=== PATIENT | male | born 1955 | race Caucasian/White ===

== ENCOUNTER → 2017-11-12 07:46 | Outpatient (CLI) | payer BC, SELFPAY ==
--- NOTE | 2017-11-12 08:00 | CT_ITS ---
CT lung screening EXAM: CT LUNG LOW DOSE WO CONTRAST COMPARISON: None HISTORY: -Year-old male with greater than 30 pack-year smoking history asymptomatic ITS.REASON: CURRENT TOBACCO USE ORDERING PHYSICIAN: Fredy Delaney MD PATIENT AGE: 62 years TECHNIQUE: The exam was performed on a GE Light Speed [address] scanner using 2.90 mGy CTDI. A low dose helical CT CHEST was performed on a multi-detector scanner. All CT scans at the facility use one or more dose reduction, viz: automated exposure control; ma/kV adjustment per patient size (including targeted exams where dose is matched to indication; i.e. head); or iterative reconstruction technique. The LDCT was performed in a facility that meets the criteria for the screening program. Data regarding this exam was submitted to ACR which is an approved registry. The order for this exam indicates that it came as a result of a lung cancer screening counseling shard decision-making visit that included all the elements required of such a visit including smoking cessation. The radiologist interpreting this exam meets the CMS criteria for the LDCT lung cancer screening program. The exam is reported using the Lung-RADS classification scale and reported to the ACR registry. NOTE: This study was performed for the specific purposes of lung cancer screening and is not an alternative to diagnostic chest CT. RADIATION DOSE: CTDI vol(CT dose Index-volume) = 2.90mG DLP (Dose Length Product) = 111.77 mGcm FINDINGS: Centrilobular emphysema. Bronchial thickening and hyperinflation consistent with obstructive chronic bronchitis 6 mm noncalcified subpleural nodular opacity left upper lobe anterolaterally. 3 mm noncalcified nodule left upper lobe anteriorly Mild prominence of the ascending aorta 4.4 cm. Coronary artery calcifications. Degenerative disc disease thoracic spine. IMPRESSION: 1. Lung RADS Category: 3, probably benign 2. Other findings: Centrilobular emphysema with obstructive chronic bronchitis Coronary artery calcifications suggesting coronary artery disease. Mild dilatation of the ascending aorta 4.4 cm RECOMMENDATIONS: [address] follow-up
== END ==
PROVIDERS: Family Provider Family Medicine; PCP Family Medicine; Visit Provider Family Medicine
DX: Z87.891 Personal history of nicotine dependence (principal); Z12.2 Encounter for screening for malignant neoplasm of respiratory organs; F17.200 Nicotine dependence, unspecified, uncomplicated

== ENCOUNTER → 2017-12-10 08:54 | Outpatient (CLI) | payer BC, SELFPAY ==
--- NOTE | 2017-12-10 08:58 | US_ITS ---
US aorta Ordering Physician: Fredy Delaney MD Patient Age: 62 years: Male HISTORY: ITS.REASON: THORACIC AORTIC ANEURYSMnoted on recent screening CT chest TECHNIQUE: Ultrasound abdominal aorta COMPARISON :No previous abdominal studies. CT chest includes uppermost abdomen from November 2017 FINDINGS Aorta normal caliber and tapers as it continues distal.. No aneurysm evident.. Aorta measures just over 2 cm diameter superiorly in the abdomen superiorly, but then does taper slightly measuring just less than 2 cm maximally at the lower abdominal aorta and just above aortic bifurcation. The common iliac vessels appear satisfactory. One measuring 6.8 mm another slightly less. Minimal atheromatous plaque aorta noted calcified plaque posteriorly at the upper abdomen aorta noted IMPRESSION 1. No abdominal aortic aneurysm evident. Aorta satisfactory caliber & tapers as it continues distally to the bifurcation.. 2. Minimal atherosclerotic plaque observed
== END ==
PROVIDERS: Family Provider Family Medicine; PCP Family Medicine; Visit Provider Family Medicine
DX: I71.2 Thoracic aortic aneurysm, without rupture (principal)
CPT/HCPCS: 76770

== ENCOUNTER → 2018-06-09 12:22 | Outpatient (CLI) | payer BC, SELFPAY ==
[2018-06-09 12:42] LABS: Blood Urea Nitrogen 12 mg/dL (7-18); Creatinine,Serum 0.73 mg/dL (0.70-1.30); Estimated Glomerular Filt Rate 109 ml/min (>60); GFR (African American) 132 ML/MIN (>60)
--- NOTE | 2018-06-09 12:56 | CT_ITS ---
CT chest w con HISTORY: : Over 40 pack-year history ITS.REASON: H/O NICOTINE DEPENDENCE,LUNG NODULES follow-up ITS.REASON: PULMONARY NODULES ORDERING PHYSICIAN: Cassandra Ye PATIENT AGE: 63 years COMPARISON: CT chest 11/12/2017 reveal 2 small nodules left lung. Technique: Axial images obtained. Sagittal and coronal reformatted images are also generated and reviewed. All CT scans at the facility use one or more dose reduction, viz: automated exposure control, ma/kV adjustment per patient size (including targeted exams where dose is matched to indication, i.e. head), or iterative reconstruction technique. . ========= FINDINGS:======= LUNG SANTIAGO Centrilobular emphysema. Bronchial thickening and hyperinflation consistent with obstructive chronic bronchitis Follow-up LEFT LUNG NODULES: 1.... The previously seen 6 mm noncalcified pleural nodular opacity superior left upper lobe anterolaterally is not changed significantly. A measures 5.5 mm at its base today's study. It can be followed. 2.... The previously noted any less than 3 mm noncalcified subpleural nodule anterior left midlung is no longer evident... 3..... However just superior and slightly lateral to the previous nodule is a very similar less than 3 mm subpleural nodular density on today's (axial image 35, sagittal 80.) This nodule Faintly seen &. Most likely benign feature. Follow-up adequate. 4.... Linear area of scarring at extends to the pleura posteriorly at the superior segment left lower lobe, axial image 32. Slightly more evident but appears to be scarring. Concern. MEDIASTINUM/LIDIA No hilar no mediastinal adenopathy. Heart normal size. Normal pulmonary arteries. Aorta satisfactory Only noting Mild slight prominence of ascending aorta 4.4 cm.-stable. . minimal Coronary artery calcifications stable. Upper Abdomen. Low-density adrenal nodule again noted. Measures 3 cm and appears similar to previous noncontrast study. It measures 10 density and compatible with a nonfunctioning adenoma on the previous exam and again today.. Mild Degenerative disc disease thoracic spine. IMPRESSION:...... 1. Lung RADS Category: 2. Small stable nodules at left lung by far most likely benign. Follow-up LDCTscreening chest CT in 12 months recommended & adequate 2. Other findings: .Centrilobular emphysema appears stable. Likely modest bronchitis. .Coronary artery calcifications suggesting coronary artery disease. .Modest dilatation of the ascending aorta 4.4 cm . Stable 3 cm low-density benign left adenoma again observed
== END ==
PROVIDERS: Visit Provider Nurse Practitioner Family
DX: R91.8 Other nonspecific abnormal finding of lung field (principal)
CPT/HCPCS: 36415; 71260; 82565; 84520; Q9967

== ENCOUNTER → 2019-01-30 14:43 | Outpatient (CLI) | payer BC, SELFPAY ==
--- NOTE | 2019-01-30 14:46 | CT_ITS ---
CT lung screening EXAM: CT LUNG LOW DOSE WO CONTRAST HISTORY: 30+ pack year smoking history, asymptomatic for lung cancer ITS.REASON: CURRENT TOBACCO USE ORDERING PHYSICIAN: Cassandra Ye APRN PATIENT AGE: 64 years COMPARISON: None TECHNIQUE: The exam was performed on a GE Light Speed [address] scanner using 2.90 mGy CTDI. A low dose helical CT CHEST was performed on a multi-detector scanner. All CT scans at the facility use one or more dose reduction, viz: automated exposure control, ma/kV adjustment per patient size (including targeted exams where dose is matched to indication, i.e. head), or iterative reconstruction technique. The LDCT was performed in a facility that meets the criteria for the screening program. Data regarding this exam was submitted to ACR which is an approved registry. The order for this exam indicates that it came as a result of a lung cancer screening counseling shard decision-making visit that included all the elements required of such a visit including smoking cessation. The radiologist interpreting this exam meets the CMS criteria for the LDCT lung cancer screening program. The exam is reported using the Lung-RADS classification scale and reported to the ACR registry. NOTE: This study was performed for the specific purposes of lung cancer screening and is not an alternative to diagnostic chest CT. RADIATION DOSE: CTDI vol(CT dose Index-volume) = 2.90mG DLP (Dose Length Product) = 111.77 mGcm FINDINGS: Changes of COPD with hyperinflation and bronchial thickening with scattered areas of scarring. There is a new spiculated semisolid appearing nodular opacity in the right upper lobe which measures 2 cm transverse and 1.2 cm AP. The nodule has a somewhat flattened appearance on the coronal reformatted images but does have spiculated margins. Cephalad to caudad dimension is only 6 mm. This was not present on the previous exam. There is a 6 mm subpleural nodular opacity in the left upper lobe unchanged. Coronary artery calcifications are present. There is a 3 cm soft tissue density in the left upper quadrant which appears to emanate from the lateral exam of the left adrenal gland and may be due to an adenoma. Unchanged. IMPRESSION: 1. Lung RADS Category: 4B, suspicious. Due to the fact this has developed since the previous exam this could be either infectious/inflammatory or neoplastic. Would therefore recommend a dedicated chest CT without and with contrast and 1 month 2. Other findings: COPD, coronary artery disease. Left adrenal nodule which may be due to an adenoma RECOMMENDATIONS: [address] follow-up without and with contrast
== END ==
PROVIDERS: PCP Family Medicine; Visit Provider Nurse Practitioner Family
DX: Z12.2 Encounter for screening for malignant neoplasm of respiratory organs (principal); Z87.891 Personal history of nicotine dependence; R91.8 Other nonspecific abnormal finding of lung field

== ENCOUNTER → 2019-02-10 08:11 | Outpatient (CLI) | payer BC, SELFPAY ==
[2019-02-10 08:37] LABS: Blood Urea Nitrogen 14 mg/dL (7-18); Creatinine,Serum 0.82 mg/dL (0.70-1.30); Estimated Glomerular Filt Rate 95 ml/min (>60); GFR (African American) 115 ML/MIN (>60)
--- NOTE | 2019-02-10 08:43 | CT_ITS ---
CT chest wo/w con HISTORY: Smoker, abnormal chest CT follow-up, follow-up nodule ITS.REASON: TOBACCO USE ,ABN CT CHEST,PULMONARY NODULE ORDERING PHYSICIAN: Fredy Delaney MD PATIENT AGE: 64 years COMPARISON: 01/30/2019 Technique: Contrast Used:75ml Optiray 350 Axial images were obtained without and with contrast.. Sagittal, and coronal reformatted images are also generated and reviewed. All CT scans at the facility use one or more dose reduction, viz: automated exposure control, ma/kV adjustment per patient size (including targeted exams where dose is matched to indication, i.e. head), or iterative reconstruction technique. FINDINGS: No mediastinal or hilar mass. Coronary artery calcifications are present. There is mild ectasia of ascending thoracic aorta 4.2 cm. No evidence of dissection. Unremarkable. Pulmonary artery. No adenopathy. There are few scattered small axillary lymph nodes. There is an irregular spiculated opacity once again noted in the right upper lobe. This is not significantly changed measuring approximately 2 cm transverse and 1.2 cm AP. No obvious enhancement. Changes of COPD. No new nodules evident. There is mild bronchial thickening. No effusions. Subpleural nodular opacity in the left upper lobe is unchanged. No acute bony anomalies. Upper abdominal images demonstrates a left adrenal mass that 3 cm consistent with density measurements consistent with an adenoma not significant change. IMPRESSION: 1. Overall no change in the spiculated lesion in the right upper lobe suspicious for neoplasm. Inflammatory or infectious focus is also a consideration. No interval change compared to 01/30/2019. Consider PET CT for further evaluation.
== END ==
PROVIDERS: PCP Family Medicine; Visit Provider Family Medicine
DX: R93.89 Abnormal findings on diagnostic imaging of other specified body structures (principal); R91.1 Solitary pulmonary nodule; F17.200 Nicotine dependence, unspecified, uncomplicated
CPT/HCPCS: 36415; 71270; 82565; 84520; Q9967

== ENCOUNTER → 2020-07-25 09:36 | Outpatient (CLI) | payer BC, SELFPAY ==
[2020-07-25 11:03] LABS: Coronavirus 19 IgG Antibody Negative (Negative); Coronavirus 19 IgM Antibody Negative (Negative)
== END ==
PROVIDERS: Visit Provider Internal Medicine Gastroenterology
DX: Z01.818 Encounter for other preprocedural examination (principal); Z12.11 Encounter for screening for malignant neoplasm of colon; Z86.010 Personal history of colon polyps; Z20.822 Contact with and (suspected) exposure to COVID-19
CPT/HCPCS: 36415; 86328

== ENCOUNTER 2020-07-26 10:25 | Day surgery (SDC) | payer BC, SELFPAY ==
[2020-07-18 10:26] VITALS: BMI 41.9
[2020-07-26 10:41] VITALS: BP 185/87; PULSE 97; RESP 22; TEMP 36.2; O2SAT 92
[2020-07-26 12:04] VITALS: O2SAT 98
[2020-07-26 12:29] VITALS: BP 99/44; PULSE 75; RESP 18; TEMP 36.2; O2SAT 93
--- NOTE | 2020-07-26 12:29 | P.PCN_ITS ---
[facility] Procedure Note Procedure Note:: Colonoscopy Procedure Report: Colonoscopy with cold snare polypectomy Endoscopist: Mike Quigley II, MD Referring physician: BRI Parks Date of Procedure: July 26, 2020 Equipment: Olympus 180 variable stiffness pediatric colonoscope Sedation: MAC sedation Indication: Mr. Garrett is a 65-year-old gentleman who is here for follow-up screening/surveillance colonoscopy secondary to a personal history of colon polyps. His last colonoscopy 5 years ago revealed polyps. He does state that this is his fourth colonoscopy. He reports no abdominal pain, weight loss, change in his bowel habits or rectal bleeding. He reports no family history of colon cancer. Procedure: Prior to the procedure, a history and physical exam was performed, and patient's medications and allergies were reviewed. The risks, benefits and alternatives of the sedation and procedure were discussed with the patient. All questions were answered and informed consent was obtained. The patient was brought to the procedure room. Patient identification and proposed procedure were verified by the physician and the nurse. The patient was placed in a left lateral decubitus position and the scope was passed under direct vision. Throughout the procedure, the patient's blood pressure, pulse, and oxygen saturations were monitored continuously. The colonoscopy was accomplished without difficulty. The patient tolerated the procedure well. Findings: On digital rectal examination there was normal rectal tone. There were no external hemorrhoids. The colonoscope was introduced through the anal canal to the rectum and advanced to the cecum. The ileocecal valve and appendiceal orifice were identified. The scope was advanced a short distance into the ileum which appeared grossly normal. The scope was then withdrawn into the colon. The cecum, ascending, transverse colon were normal. There were 2 diminutive polyps in the descending colon (3 and 4 mm) and 1 polyp in the rectum (4 mm) all removed via cold snare polypectomy. There was a lipoma in the sigmoid colon. There were no mucosal abnormalities identified. Upon retroflexion within the rectum there were grade 1-2 internal hemorrhoids.The preparation was excellent throughout with Shelton Preparation Score of 9. The cecal time was 12 minutes. Impression: 1. Diminutive colonic polyps x3 2. Grade 1-2 internal hemorrhoids Plan: I will follow up the polyp pathology and recommend repeat colonoscopy again in 5-7 years based upon the polyp histology. I would encourage fiber supplementation on a long-term daily maintenance basis.
[2020-07-26 12:39] VITALS: BP 100/55; PULSE 82; RESP 18; O2SAT 95
[2020-07-26 12:49] VITALS: BP 113/66; PULSE 83; RESP 18; O2SAT 95
[2020-07-26 13:00] VITALS: BP 123/68; PULSE 79; RESP 18; O2SAT 92
--- NOTE | 2020-07-26 13:43 | P.PN_ITS ---
[facility] Anesthesia Checklist - Structural Data Admitted From: Home Planned Operative Procedure/s: colon Consent for Planned Operative Procedure(s) Verified: Yes Verified Documents: Surgical Consent - NPO Status Verified Time NPO: 00:00 - Anesthesia Plan Anesthesia Risk discussed: Yes Anesthesia Type: General [facility] History Medical History: Denies:: Cancer, Diabetes Mellitus Type 1, Diabetes Mellitus Type 2, Internal Pacemaker, MRSA, Seizures *Have you ever received a pneumonia vaccine?: No *Have you received a flu vaccine this season?: Yes Anesthesia experience/problems:: none Laterality Cases: Right: Arthroscopy Knee Other Surgeries: No: Pacemaker Amputation: No Fractures: No - *Social History Last grade of school completed: High school graduate Smoking Status: Former smoker Tobacco Type: cigarettes Alcohol Intake: current Alcohol Intake Frequency:: holidays/special occasions only Substance Use Type: denies use *Occupational Status:: retired *Travel in the last 8 weeks: None Family Hx:: Unable to obtain, No significant family history
== END 2020-07-26 13:08 | disposition home or self-care (01) ==
PROVIDERS: PCP Family Medicine; Visit Provider Internal Medicine Gastroenterology
PROC: 0DJD8ZZ Inspection of Lower Intestinal Tract, Via Natural or Artificial Opening Endoscopic (ICD-10-PCS; CPT 45378; principal; 2020-07-26 11:30)
DX: Z12.11 Encounter for screening for malignant neoplasm of colon (principal); Z86.010 Personal history of colon polyps; K63.5 Polyp of colon; K64.0 First degree hemorrhoids; Z87.891 Personal history of nicotine dependence; I10 Essential (primary) hypertension; E78.5 Hyperlipidemia, unspecified; J44.9 Chronic obstructive pulmonary disease, unspecified; Z79.899 Other long term (current) drug therapy
CPT/HCPCS: 45385

== ENCOUNTER → 2020-11-21 14:11 | Outpatient (CLI) | payer BC, SELFPAY ==
--- NOTE | 2020-11-21 14:11 | CT_ITS ---
PROCEDURE INFORMATION: Exam: CT Chest Without Contrast; Diagnostic Exam date and time: 11/21/2020 2:11 PM Age: 65 years old Clinical indication: Other: Lung nodule; Additional info: Lung nodule follow-up TECHNIQUE: Imaging protocol: Diagnostic computed tomography of the chest without contrast. Radiation optimization: All CT scans at this facility use at least one of these dose optimization techniques: automated exposure control; mA and/or kV adjustment per patient size (includes targeted exams where dose is matched to clinical indication); or iterative reconstruction. COMPARISON: CT CHEST WO/W CON 02/10/2019 10:04 AM FINDINGS: Lungs: Centrilobular emphysematous changes noted bilaterally. 4 mm noncalcified pleural-based nodule within the left upper lobe is unchanged. Pleural spaces: There are no pleural effusions present. Mild bilateral pleural thickening is present. Heart: Unremarkable. No cardiomegaly. No pericardial effusion. Aorta: Ectatic changes of the ascending thoracic aorta present measuring up to 3.9 cm. Lymph nodes: Calcified hilar lymphadenopathy. Adrenal glands: 3 cm left adrenal nodule is unchanged. Bones/joints: The thoracic spine demonstrates mild degenerative changes at multiple levels. Soft tissues: Unremarkable. Other findings: Remaining nodules noted previously are not well seen on today's study. IMPRESSION: 1. Centrilobular emphysematous changes noted bilaterally. 2. 4 mm noncalcified pleural-based nodule within the left upper lobe is unchanged. No routine follow-up is indicated. (Reference: Kavon) 3. Remaining nodules noted previously are not well seen on today's study. There is no evidence of pneumothorax. 4. Mild bilateral pleural thickening is present. 5. Ectatic changes of the ascending thoracic aorta present measuring up to 3.9 cm. There is mild atherosclerotic calcification of the coronary arteries. 6. 3 cm left adrenal nodule is unchanged. REFERENCES: Riccohovikash H, et al. Guidelines for Management of Incidental Pulmonary Nodules Detected on CT Images: From the Fleischner Society 2017. Radiology. 2017;284(1):228-243.
--- NOTE | 2020-11-21 14:45 | PC.NURSE ---
PFT and 6 Minute Walk Test completed on Pt without complications. Albuterol 0.083% given via HHN per written protocol, Pt tolerated tx well.
== END ==
PROVIDERS: PCP Family Medicine; Visit Provider Internal Medicine Pulmonary Disease
DX: R06.00 Dyspnea, unspecified (principal); R91.8 Other nonspecific abnormal finding of lung field
CPT/HCPCS: 71250; 94060; 94618; 94726; 94729

== ENCOUNTER → 2021-10-10 13:20 | Outpatient (CLI) | payer BC, SELFPAY ==
--- NOTE | 2021-10-10 13:24 | XR_ITS ---
FINAL REPORT CLINICAL HISTORY: knee pain for years, hx bone chip, injury when 14 years old, images done weight bearing FINDINGS: 4 views of the left knee were obtained. There is no evidence of fracture. There are moderate and severe degenerative changes, greatest involving the medial compartment. There is severe medial compartment joint space narrowing. There is a suprapatellar calcification. No significant joint effusion is seen. IMPRESSION: Degenerative changes, severe and worst involving the medial compartment. Authenticated by Cullen Jerome III, MD on 10/10/2021 01:58:16 PM [facility]
== END ==
PROVIDERS: PCP Family Medicine; Visit Provider Orthopaedic Surgery
DX: M25.562 Pain in left knee (principal)
CPT/HCPCS: 73564

== ENCOUNTER 2021-10-10 14:40 | Outpatient (RCR) | payer BC, SELFPAY | END 2021-10-10 15:20 | disposition home or self-care (01) | LOC: PT 14:40 | PROVIDERS: Visit Provider Orthopaedic Surgery | DX: M25.562 Pain in left knee (principal) | CPT/HCPCS: 97760 ==

== ENCOUNTER → 2021-11-24 07:47 | Outpatient (CLI) | payer BC, SELFPAY ==
--- NOTE | 2021-11-24 07:47 | CT_ITS ---
FINAL REPORT CLINICAL HISTORY: lung cancer screening former smoker, quit 3 years ago. smoked 2ppd x 40 years copd no family hx COMPARISON: 11/21/2020 FINDINGS: Axial images were obtained from the lung apex to the mid abdomen by computed tomography. Low-dose protocol was utilized. CTDl vol(mGy): 2.90 DLP (mGy-cm): 106.55 FINDINGS: There is no axillary adenopathy. There is no hilar or mediastinal adenopathy. The heart size is normal. There is no pericardial or pleural effusion. There is emphysema. There is a subpleural 4 mm nodule in the left upper lobe on image 19 which is unchanged. There is a stable 3 mm right lower lobe nodule well seen on image 47. There is a new, 4 mm right upper lobe nodule, on image 31, with surrounding ground-glass opacity. Limited images of the upper abdomen demonstrate a, likely stable, left adrenal nodule. IMPRESSION: New 4 mm right upper lobe nodule. Lung RADS category 2S. Recommend 12 month follow-up low-dose chest CT. Category S- stable left adrenal nodule. Reviewed, Interpreted and Dictated by Dominique Gonzalez MD Transcribed by Hillary Talley Authenticated by Dominique Gonzalez MD on 11/24/2021 08:53:28 AM [facility]
== END ==
PROVIDERS: PCP Family Medicine; Visit Provider Internal Medicine Pulmonary Disease
DX: Z87.891 Personal history of nicotine dependence (principal); Z12.2 Encounter for screening for malignant neoplasm of respiratory organs
CPT/HCPCS: 71271

== ENCOUNTER 2021-12-03 08:30 | Outpatient (RCR) | payer BC, SELFPAY ==
--- NOTE | 2021-10-13 10:35 | HMH.PTOPEV ---
PT Outpatient Evaluation Rehab PT Outpatient Evaluation Start: 10/13/21 09:23 Freq: Status: Active Protocol: Document 10/13/21 09:24 LILI (Rec: 10/13/21 10:35 LILI [id number]) Electronically Signed By Billy Corea, PT 10/13/21 09:24 Outpatient Therapy Subjective History Subjective History Pt reports h/o chronic left knee pain for ~5 yrs. pt reports recent left knee injection 'hasn't really helped a lot, and new brace helps a little'. Pt reports medial aspect left knee pain is the worst area, 'but it all hurts when I take back step'. PMH:COPD Chief Complaint Pain,Stiff,Clicks,Swelling, Weakness Symptom Type Ache,Sharp,Dull Symptoms Relieved By Rest/Positioning Symptoms Aggravated By Standing,Physical Activity, Twisting,Walking Prior Functional Limitations Housework,Standing,Recreation Activity,Stairs Current Functional Limitations Housework,Standing,Walking, Stairs Symptom Description Constant but Variable Level of pain today (0-10) 3 Pain scale - at its best (0-10) 2 Pain scale - at its worst (0-10) 9 Hip/Knee Eval Gait Observation General Gait Pattern Observation Antalgic Gait,Wide Based Gait Palpation Tenderness left Knee Palpation Finding Tenderness Knee Palpation Overall Comment 3/4 medial jt line, 2/4 popiteal space, 2/4 lateral jt line MMT Hip Flexion Strength Grade 4 Good Hip Abduction Strength Grade 4- Good- Hip Adduction Strength Grade 4- Good- Hip Extension Strength Grade 4 Good Hip External Rotation Strength Grade 4 Good Hip Internal Rotation Strength Grade 4 Good Knee Extension Strength Grade 5 Normal Knee Flexion Strength Grade 4 Good ROM Knee Flexion Active Range of Motion ( 2-118 degrees) Effusion joint effusion knee exam standard left Mid - Patellar Circumerential Measure ( 48 cm) Outpatient Therapy Assessment Impairments Problems/Impairmments Palpation Tenderness,Impaired Range of Motion,Impaired Strength,Impaired Gait Pattern ,Impaired Walking,Impaired Standing,Impaired Household Care,Impaired Stair Climbing, Increased Edema,Subjective C/O
--- NOTE | 2021-11-11 10:40 | HMH.RHREAS ---
Rehab Reassessment Rehab OP Re-assessment Start: 11/04/21 08:44 Freq: Status: Active Protocol: Document 11/11/21 10:26 LILI (Rec: 11/11/21 10:39 LILI [id number]) Electronically Signed By Billy Corea, PT 11/11/21 10:26 Rehab Re-assessment Subjective Subjective Pt reports no left knee pain this am on VAS, 'it's not raining, so it's not bad'. Pt reports Objective Objective Notes AROM: LEFT KNEE FLX 0-125 TTP: LEFT KNEE MEDIAL JT 1/4 MMT: L HIP FLX 5/5, L HIP IR 4 +/5, L HIP ER 4+/5, L HIP ABD 4/5, L HIP ADD 4/5 GAIT: WFL ON LEVEL TERRAIN EDEMA: LEFT KNEE CIRCUM MID PAT. 47CM Assessment Progress Assessment Progressing as Expected Assessment Notes IMPROVED ROM, STRENGTH, TTP, AND GAIT Patient goals met STG'S 03/13 LTG'S 09/12 Goals Not Met LTG'S 02/12 Plan Plan Pt to cont. w/skilled P.T. to mkae further improvements in left LE strength, ROM, TTP, and gait to aloow for optimal function Frequency of Therapy 1-2x/wk Duration of therapy 3-4wks Time and Billing Re-Eval Time 15 Re-Eval Billing Units 1 PHYSICIAN CERTIFICATION: I certify the specified therapy services for Nelson Garrett are required, authorized, and reviewed every 30 days.
== END 2021-12-03 08:35 | disposition home or self-care (01) ==
LOC: PT 08:30
PROVIDERS: PCP Family Medicine; Visit Provider Orthopaedic Surgery
DX: M25.562 Pain in left knee (principal)
CPT/HCPCS: 97010; 97014; 97033; 97035; 97110; 97163; 97164; G0283

== ENCOUNTER → 2022-02-03 10:06 | Outpatient (CLI) | payer MEDICARE, BC, SELFPAY ==
[2022-02-03 11:15] LABS: Basophils # 0.1 K/mm3 (0-0.2); Basophils % 1.4 % (0.1-2.0); Eosinophils # 0.1 K/mm3 (0.0-0.4); Eosinophils % 1.5 % (0.1-12.0); Hematocrit 50.5 % (42.0-52.0); Hemoglobin 16.9 g/dL (14.1-18.0); Lymphocytes # 1.9 K/mm3 (0.7-4.5); Lymphocytes % 24.9 % (10-50); Mean Corpuscular HGB Conc 33.4 g/dL (31.8-35.4); Mean Corpuscular Hemoglobin 31.1 pg (27.0-31.2); Mean Corpuscular Volume 93.2 fl (80-94); Mean Platelet Volume 8.7 fl (7.4-10.4); Monocytes # 0.5 K/mm3 (0.1-1.0); Neutrophils # 4.9 K/mm3 (1.8-7.8); Neutrophils % 65.2 % (37.0-80.0); Platelet Count 203 K/mm3 (142-424); Red Blood Count 5.42 M/mm3 (4.60-6.20); Red Cell Distribution Width 13.5 % (11.5-17.5); White Blood Count 7.5 K/mm3 (4.8-10.8)
[2022-02-03 11:38] LABS: Chloride 111 mmol/L (98-107); Potassium 4.4 mmoL/L (3.5-5.1); Sodium 144 mmol/L (136-145)
[2022-02-03 11:40] LABS: Alanine Aminotransferase 20 U/L (12-78); Alkaline Phosphatase 102 U/L (38-126); Anion Gap 9.4 mEq/L (5-15); Aspartate Amino Transferase 28 U/L (17-59); Blood Urea Nitrogen 17 mg/dl (9-20); Carbon Dioxide 28 mmol/L (22.0-30.0); Estimated Glomerular Filt Rate 113 ml/min (>60); GFR (African American) 137 ML/MIN (>60)
[2022-02-03 11:41] LABS: Albumin/Globulin Ratio 1.5 (1.1-1.8); Calcium 9.5 mg/dl (8.4-10.2); Globulin 2.6 g/dL (1.3-3.2); Glucose 115 mg/dl (74-100); Total Protein,Serum 6.6 g/dl (6.3-8.2)
== END ==
PROVIDERS: PCP Family Medicine; Visit Provider Orthopaedic Surgery
DX: M17.12 Unilateral primary osteoarthritis, left knee (principal); J44.9 Chronic obstructive pulmonary disease, unspecified
CPT/HCPCS: 36415; 80053; 85025; 86850

== ENCOUNTER → 2022-02-07 09:52 | Outpatient (CLI) | payer MEDICARE, BC, SELFPAY ==
--- NOTE | 2022-02-07 09:56 | ECG_ITS ---
APPROVED REPORT Exam: Resting ECG HR:70 bpm ECG Measurements Heart Rate 70 AXES HI 173 P 61 QRSd 93 QRS -12 QT 390 T 40 QTc 410 Conclusion SINUS RHYTHM NORMAL ECG UNCONFIRMED REPORT Electronically signed by : Fredy Marina MD 02/08/2022 09:10:24
--- NOTE | 2022-02-07 10:40 | XR_ITS ---
PROCEDURE INFORMATION: Exam: XR Chest Exam date and time: 02/07/2022 10:42 AM Age: 67 years old Clinical indication: Pre-operative exam; Cardiovascular screening and respiratory screening exam; Additional info: Pre op. HX of smoking TECHNIQUE: Imaging protocol: Radiologic exam of the chest. Views: 2 views. COMPARISON: CT CHEST WO CON 11/21/2020 2:13 PM FINDINGS: Lungs: Nonspecific fullness at the left lung base impression. Correlate with CT. Pleural spaces: No pleural effusion. No pneumothorax. Heart/Mediastinum: Unremarkable cardiomediastinal silhouette. Bones/joints: No acute osseous findings. IMPRESSION: No focal consolidation.
== END ==
PROVIDERS: PCP Family Medicine; Visit Provider Orthopaedic Surgery
DX: M17.12 Unilateral primary osteoarthritis, left knee (principal); Z01.812 Encounter for preprocedural laboratory examination; Z20.822 Contact with and (suspected) exposure to COVID-19
CPT/HCPCS: 71046; 93005; C9803; U0003; U0005

== ENCOUNTER 2022-02-10 14:15 | Observation (INO) | payer MEDICARE, BC, SELFPAY ==
[2022-02-05 13:50] VITALS: BMI 40.2
[2022-02-10] VITALS (18 sets, daily range): BP systolic 129–163; BP diastolic 66–94; PULSE 81–96; RESP 14–18; TEMP 35.5–43; O2SAT 92–98; BMI 41.5
[2022-02-10 10:20] LABS: Coronavirus 19, PCR Not Detected (NotDetected); Influenza A, PCR Not Detected (NotDetected); Influenza B, PCR Not Detected (NotDetected)
--- NOTE | 2022-02-10 11:48 | P.PN_ITS ---
[facility] Anesthesia Checklist - Patient Identification Patient Identification: Arm Band - Structural Data Admitted From: Home Planned Operative Procedure/s: TKA Consent for Planned Operative Procedure(s) Verified: Yes - NPO Status Verified Time NPO: 00:00 - Additional verifications Anesthesia Reactions: Yes Hx Blood Transfusions: No Blood Transfusion Reaction: No - Airway Assessment C-Spine Mobility Assessed: Yes TMJ Mobility Assessed: Yes Dentition: Poor Dentition - Neurological Assessment Level of Consciousness: Awake Hx Seizures: No Numbness or tingling in extremities: No - Anesthesia Plan Anesthesia Risk discussed: Yes Anesthesia Plan: Verified ASA Class: II Anesthesia Type: MAC w/Spinal [facility] History I have reviewed the patient's past medical history: Yes Medical History: Reports:: Chronic Obstructive Pulmonary Disease (COPD) Denies:: Cancer, Diabetes Mellitus Type 1, Diabetes Mellitus Type 2, Internal Pacemaker, MRSA, Seizures *Have you ever received a pneumonia vaccine?: No *Have you received a flu vaccine this season?: Yes Other Medical History: Denies: Blood Transfusion Reaction Anesthesia experience/problems:: None Laterality Cases: Right: Arthroscopy Knee, Bilateral: Tonsillectomy Other Surgeries: Yes: Colonoscopy, Other. No: Pacemaker Amputation: No Fractures: No - *Social History Last grade of school completed: High school graduate Smoking Status: Former smoker Tobacco Type: cigarettes # Packs/Day (cigarettes): 2 #Yrs smoked (if former smoker): 44 Alcohol Intake: current Alcohol Intake Frequency:: holidays/special occasions only Substance Use Type: denies use *Occupational Status:: retired Housing: house *Travel in the last 8 weeks: None Family Hx:: Unable to obtain, No significant family history
--- NOTE | 2022-02-10 13:02 | HMH.OPNOTE ---
Date of procedure: 02/10/22 Pre-op Diagnosis:: Left knee osteoarthritis Post-op Diagnosis:: Left knee osteoarthritis Procedure performed:: Left total knee arthroplasty Surgeon:: Pramod Dc MD It Systems Manager(s):: NANETTE Franks Anesthesia: spinal Estimated blood loss (mL): 10 Clinical Note:: Nelson is a very pleasant 67-year-old male has been struggling with activity limiting left knee pain secondary to osteoarthritis that is affecting his quality of life. He has failed exhaustive conservative treatment measures. A left knee cortisone injection in October provided minimal relief. He takes Advil as needed. He had a left knee scope in the 80s. Left knee x-rays in October revealed severe tricompartmental degenerative changes in a varus knee with complete loss of medial joint space and marginal osteophyte formation. After discussing all the risks, benefits and alternatives to left total knee replacement he agreed to proceed and surgical consent form was signed. Operative findings:: Left knee severe tricompartmental degenerative changes with complete loss of medial joint space. Operative note:: The patient was seen in the preoperative holding area. The left knee was marked to confirm the correct operative site. He was seen by anesthesia. He received Ancef 2 g IV prophylactic antibiotics within 1 hour of incision time as well as TXA just prior to the incision and while we were closing to help minimize bleeding. He was brought back to the OR. Spinal was performed without difficulty. Bump was placed underneath the left hip. Nonsterile tourniquet was applied to the left thigh. The left lower extremity was prepped and draped in usual sterile fashion. Timeout was formed to confirm left total knee arthroplasty on patient Neslon Garrett. The left lower extremity was exsanguinated with an Esmarch. Tourniquet inflated to 300 mmHg. With the knee flexed a midline incision was made with a 10 blade scalpel. Full-thickness medial and lateral flaps were elevated. We then made a medial parapatellar arthrotomy. The patella was everted. Patella fat pad and anterior femoral fat pads were excised. Marginal osteophytes were removed. Medial release was performed with the Bovie. Z retractors were placed medially and laterally. Distal femur was then drilled and intramedullary distal femoral cutting guide was pinned in place set at a 5 degrees valgus cut for a 9-1/2 mm cut. This cut was made with the oscillating saw. The femur was sized to a size 7 set at 3 degrees of external rotation. The 4-in-1 cutting guide was pinned in place. Anterior and posterior cuts were made as well as well as the chamfer cuts. We then turned our attention to the tibia. Tibia was subluxed anteriorly and PCL retractor was placed as were medial and lateral Hohmann retractors. We pinned the extramedullary tibial cutting guide in place to remove 5 mm of bone from the low medial side and a centimeter from the high lateral side. The tibial cut was made with the oscillating saw. Medial and lateral menisci were then excised and posterior osteophytes removed with a curved osteotome. Flexion and extension gaps were checked and with a 9 mm block we achieved full extension and flexion with excellent alignment. Tibia was then sized to a size 6 tibial tray centered off the medial third of the tibial tubercle. The tray was pinned in place. We then impacted the tibial fins. We trialed with a size 7 femur, with the trial in place we made the box cut with the reamer and punch. Then finished trialing with a size 7 femur, 9 poly and 6 tibia. With these components in place we achieved full extension and flexion with excellent alignment and stable throughout. We turned our attention to the patella. Patella was sized to 26 mm in thickness, we made a 9 mm patellar cut with the reciprocal saw. A 35 trial button was placed after patella drill holes were made. With the trial button in place t
--- NOTE | 2022-02-10 13:11 | XR_ITS ---
FINAL REPORT CLINICAL HISTORY: postop tka COMPARISON: 10/10/2021 FINDINGS: Two views of the left knee were obtained. There is no evidence of fracture or dislocation. There has been left knee arthroplasty. There is associated soft tissue air. IMPRESSION: Left knee arthroplasty without evidence of complication. Reviewed, Interpreted and Dictated by Cullen Jerome III, MD Transcribed by Jose M Hubbard Authenticated and [facility]
--- NOTE | 2022-02-10 13:15 | P.PN_ITS ---
[facility] Anesthesia Record Part I Intake, IV Amount: 800 Estimated blood loss (mL): 30 Urine output (mL): 0 Blood Products used (#): none Blood Pressure: 141/77 SaO2: 94 Pulse Rate: 81 Respiratory Rate: 18 Temperature: 95.9 F Patient is:: Awake, Stable Stable to PACU at:: 13:02
--- NOTE | 2022-02-10 14:58 | PC.NURSE ---
Spoke with Brenda regarding physician consult on pt for Dr. Alex.
--- NOTE | 2022-02-10 15:45 | PC.NURSE ---
mittal catheter removed per Dr. Dc standing order. Pt is able to wiggle toes and move BLE. Pt reports that he is able to feel me touch BLE. Urinal given to pt.
--- NOTE | 2022-02-10 17:21 | HMH.HP ---
*Admission Date: 02/10/22 *Chief complaint: Knee replacement *History of present illness: Medicine was consulted to [facility] by orthopedics (Dr. Dc). Patient's status post total knee arthroplasty earlier today. Mr. Garrett is a pleasant 67-year-old male with morbid obesity, osteoarthritis, COPD, and anxiety who has had activity limiting left knee pain secondary to osteoarthritis that affects daily life. He has failed exhaustive conservative treatment measures. After consultation with orthopedics, decision made to proceed with left knee total replacement. Imaging concerning for severe tricompartmental degeneration and loss of medial joint space. Taken for replacement today in the OR by Dr. Dc. Patient tolerated procedure well without significant side effect. Pain stable at this time. Admitted for monitoring overnight. On evaluation this evening, he denies significant pain. Tolerating current medication regimen. Still has 2 L oxygen via nasal cannula in place however denies any dyspnea. Counseled on incentive spirometry on rounds. Otherwise denies chest pain, shortness of breath, nausea, vomiting, confusion. [facility] History I have reviewed the patient's past medical history: Yes Medical History: Reports:: Chronic Obstructive Pulmonary Disease (COPD) Denies:: Cancer, Diabetes Mellitus Type 1, Diabetes Mellitus Type 2, Internal Pacemaker, MRSA, Seizures *Have you ever received a pneumonia vaccine?: No *Have you received a flu vaccine this season?: No Other Medical History: Denies: Blood Transfusion Reaction Anesthesia experience/problems:: None Laterality Cases: Right: Arthroscopy Knee, Bilateral: Tonsillectomy Other Surgeries: Yes: Colonoscopy, Other. No: Pacemaker Amputation: No Fractures: No - *Social History Last grade of school completed: High school graduate Smoking Status: Former smoker Tobacco Type: cigarettes # Packs/Day (cigarettes): 2 #Yrs smoked (if former smoker): 44 Alcohol Intake: never Alcohol Intake Frequency:: holidays/special occasions only Substance Use Type: denies use *Occupational Status:: retired Housing: house Household Members: spouse *Travel in the last 8 weeks: None Family Hx:: Unable to obtain, No significant family history Review of Systems - Review of Systems Review of systems:: pertinent systems reviewed and negative unless documented below (14 point review of systems performed, pertinent positives and negatives as per HPI) Meds Home Medications Medication Instructions Recorded Confirmed Type ALPRAZolam [Xanax 0.5mg tab] 0.5 mg PO TID PRN 07/18/20 02/10/22 History Atorvastatin Calcium [Lipitor 20mg 20 mg PO HS 07/18/20 02/10/22 History Tab] Escitalopram Oxalate [Lexapro] 20 mg PO DAILY 07/18/20 02/10/22 History albuterol sulfate 90 mcg/actuation 1 inh INHALATION Q6H PRN 90 Days 02/25/21 02/10/22 Rx aerosol inhaler #8.5 g Furosemide [Lasix 40mg tab] 40 mg PO DAILY PRN 02/10/22 02/10/22 History Umeclidinium Brm/Vilanterol Tr 1 inh IH DAILY 02/10/22 02/10/22 History [Anoro Ellipta] Allergies Allergy/AdvReac Type Severity Reaction Status Date / Time No Known Allergies Allergy Verified 01/29/22 15:40 Exam Vital signs and Labs for Last 24 Hours: Temp Pulse Resp BP Pulse Ox 97.4 F L 86 16 160/94 H 95 02/10/22 16:00 02/10/22 16:00 02/10/22 16:00 02/10/22 16:00 02/10/22 16:00 Laboratory Results - last 24 hr 02/10/22 10:13: SARS-CoV-2 (PCR) Not detected, Influenza A Untype (PCR) Not detected, Influenza Type B (PCR) Not detected 02/10/22 10:13: Blood Type B Positive, Antibody Screen Negative I & O for Last 24 hours: Intake & Output 02/07/22 02/08/22 02/09/22 02/10/22 23:59 23:59 23:59 23:59 Intake Total 1600 / 1600 Output Total 500 / 500 Balance 1100 / 1100 Weight 142.655 kg - Constitutional mild distress, morbidly obese - *Routine HEENT Exam Head: Present: normocephalic Eye: Present: EOMI, PERRL ENT: Presen
--- NOTE | 2022-02-10 18:20 | PC.NURSE ---
shift summary: GCS 15. Pt has been pleasant. Had left total knee replacement today. RLE in SCD. Pt is able to move BLE and can feel sensations when touched. Dressing CDI. Polar pack in place. Bilateral pedal and PT pulses 2+. No edema noted. Weiss catheter removed. Now using urinal. Tolerating a reg diet. O2 sat mid 90s on 2L NC. Does not wear O2 at home. NS infusing @ 75mL/hr.
[2022-02-11] VITALS: BP 129/69; PULSE 78; RESP 16; TEMP 36.4; O2SAT 94
[2022-02-11 04:00] VITALS: BP 128/69; PULSE 81; RESP 16; TEMP 36.6; O2SAT 92
--- NOTE | 2022-02-11 04:27 | PC.NURSE ---
Pt is alert and oriented x4, pt is using urinal independently. Pt has complained of pain 3 times, medicated prn per mar. Pt total left knee replacement, dressing in place CDI, polar pack in place. Pt has not rested much throughout shift, but is able to get some rest. Pt O2 sat >90% NC 2L. Pt lung sounds are clear bilaterally. Call light in reach and working.
[2022-02-11 04:51] VITALS: BMI 41.1
[2022-02-11 06:06] LABS: Basophils % 0.2 % (0.1-2.0); Eosinophils # 0.1 K/mm3 (0.0-0.4); Eosinophils % 0.4 % (0.1-12.0); Hematocrit 45.5 % (42.0-52.0); Hemoglobin 15.1 g/dL (14.1-18.0); Lymphocytes # 1.6 K/mm3 (0.7-4.5); Lymphocytes % 11.3 % (10-50); Mean Corpuscular HGB Conc 33.2 g/dL (31.8-35.4); Mean Corpuscular Hemoglobin 30.7 pg (27.0-31.2); Mean Corpuscular Volume 92.4 fl (80-94); Mean Platelet Volume 8.6 fl (7.4-10.4); Monocytes # 1.3 K/mm3 (0.1-1.0); Monocytes % 9.2 % (1.7-9.3); Neutrophils # 11.2 K/mm3 (1.8-7.8); Neutrophils % 78.9 % (37.0-80.0); Platelet Count 202 K/mm3 (142-424); Red Blood Count 4.92 M/mm3 (4.60-6.20); Red Cell Distribution Width 13.5 % (11.5-17.5); White Blood Count 14.2 K/mm3 (4.8-10.8)
[2022-02-11 06:11] LABS: Chloride 106 mmol/L (98-107); Potassium 4.5 mmoL/L (3.5-5.1)
[2022-02-11 06:12] LABS: Sodium 137 mmol/L (136-145)
[2022-02-11 06:15] LABS: Anion Gap 8.5 mEq/L (5-15); Blood Urea Nitrogen 20 mg/dl (9-20); Carbon Dioxide 27 mmol/L (22.0-30.0); Creatinine Clearance Estimated 81 mL/min (50-200); Estimated Glomerular Filt Rate 97 ml/min (>60); GFR (African American) 117 ML/MIN (>60)
[2022-02-11 06:16] LABS: Calcium 8.7 mg/dl (8.4-10.2); Glucose 142 mg/dl (74-100)
--- NOTE | 2022-02-11 07:16 | P.CONPHA_ITS ---
[facility] Pharm[facility] VTE Monitoring - Patient Demographics Admission date: 02/10/22 Report Date: 02/11/22 Time: 07:16 Allergies/Adverse Reactions: Patient Allergies No Known Allergies Allergy (Verified 01/29/22 15:40) Height: 1.85 m Weight: 140.568 kg Patient Problems: Current Active Problems Osteoarthritis of left knee (Chronic) History of arthroplasty of left knee (Acute) COPD (chronic obstructive pulmonary disease) (Chronic) Class 3 obesity (Chronic) DARIO (generalized anxiety disorder) (Chronic) - VTE Risk Labs: VTE Related Lab Results Hgb 15.1 g/dL (14.1-18.0) 02/11/22 05:43 Hct 45.5 % (42.0-52.0) 02/11/22 05:43 Plt Count 202 K/mm3 (142-424) 02/11/22 05:43 BUN 20 mg/dl (9-20) 02/11/22 05:43 Creatinine 0.80 mg/dl (0.66-1.25) 02/11/22 05:43 Estimated Creat Clear 81 mL/min (50-200) 02/11/22 05:43 Was VTE Risk Assessment Performed: Yes VTE Score: 7 VTE Risk Level: Moderate Risk - Prophylaxis VTE Prophylaxis Ordered?: Yes Types of VTE Prophylaxis: IPCS Thigh High Location of Applied Device: Right Leg
--- NOTE | 2022-02-11 07:19 | HMH.PHAINT ---
MEDICATION RECONCILIATION COMPLETED ON PATIENT USING EXTERNAL FILL HISTORY FROM PHARMACY. -OCTAVIO ROBLEDO, ADIELD
[2022-02-11 08:00] VITALS: BP 124/63; PULSE 81; RESP 16; TEMP 36.8; O2SAT 92
--- NOTE | 2022-02-11 08:38 | HMH.DCSUM ---
General - General Admission date:: 02/10/22 Discharge date: 02/11/22 HPI HPI: Medicine was consulted to comanage by orthopedics (Dr. Dc). Patient's status post total knee arthroplasty earlier today. Mr. Garrett is a pleasant 67-year-old male with morbid obesity, osteoarthritis, COPD, and anxiety who has had activity limiting left knee pain secondary to osteoarthritis that affects daily life. He has failed exhaustive conservative treatment measures. After consultation with orthopedics, decision made to proceed with left knee total replacement. Imaging concerning for severe tricompartmental degeneration and loss of medial joint space. Taken for replacement today in the OR by Dr. Dc. Patient tolerated procedure well without significant side effect. Pain stable at this time. Admitted for monitoring overnight. On evaluation this evening, he denies significant pain. Tolerating current medication regimen. Still has 2 L oxygen via nasal cannula in place however denies any dyspnea. Counseled on incentive spirometry on rounds. Otherwise denies chest pain, shortness of breath, nausea, vomiting, confusion. Hospital Course Hospital Course: Patient was admitted postoperatively as noted above. He had a good night postoperatively in the hospital and this morning is awake, alert and wishes to go home. PT and orthopedics have seen patient this morning. Exam reveals no cardiopulmonary issues. His knee exam looks great, see orthopedic notes. Plan to discharge home. Pain and DVT prophylaxis have been prescribed by orthopedics. He does not need other medication refills. Follow-up has been arranged and we will see him in our offices as scheduled. Objective Vital signs: Temp Pulse Resp BP Pulse Ox 97.8 F 81 16 128/69 92 L 02/11/22 04:00 02/11/22 04:00 02/11/22 04:00 02/11/22 04:00 02/11/22 04:00 no acute distress - *Routine HEENT Exam Head: Present: normocephalic Eye: Present: EOMI, PERRL ENT: Present: mucous membranes moist - *Routine Neck Exam Present: supple - *Routine Respiratory Exam Present: CTA bilaterally - *Routine Cardiovascular Exam Present: RRR - *Routine Abdominal Exam Present: soft, normoactive bowel sounds, obese. Absent: tenderness - *Routine Extremities Exam Present: edema. Absent: cyanosis, clubbing Comments: Trace ankle edema on the left leg distal to the knee replacement site. Knee replacement site looks great with well appositioned surgical scars with no evidence of dehiscence, bleeding or drainage. - *Routine Skin Exam Present: warm. Absent: rash - Detailed Eye Exam Eyelids: Bilateral normal inspection Results Labs on day of discharge: Labs from last 24 hours 02/11/22 02/11/22 02/10/22 05:43 05:43 10:13 WBC 14.2 H RBC 4.92 Hgb 15.1 Hct 45.5 MCV 92.4 MCH 30.7 MCHC 33.2 RDW 13.5 Plt Count 202 MPV 8.6 Neut % (Auto) 78.9 Lymph % (Auto) 11.3 [place] % (Auto) 9.2 Eos % (Auto) 0.4 Baso % (Auto) 0.2 Neut # (Auto) 11.2 H Lymph # (Auto) 1.6 [place] # (Auto) 1.3 H Eos # (Auto) 0.1 Baso # (Auto) 0.0 Sodium 137 Potassium 4.5 Chloride 106 Carbon Dioxide 27 Anion Gap 8.5 BUN 20 Creatinine 0.80 Estimated Creat Clear 81 Estimated GFR 97 Est GFR ( Amer) 117 Glucose 142 H Calcium 8.7 SARS-CoV-2 (PCR) Influenza A Untype (PCR) Influenza Type B (PCR) Blood Type B Positive Antibody Screen Negative 02/10/22 10:13 WBC RBC Hgb Hct MCV MCH MCHC RDW Plt Count MPV Neut % (Auto) Lymph % (Auto) [place] % (Auto) Eos % (Auto) Baso % (Auto) Neut # (Auto) Lymph # (Auto) [place] # (Auto) Eos # (Auto) Baso # (Auto) Sodium Potassium Chloride Carbon Dioxide Anion Gap BUN Creatinine Estimated Creat Clear Estimated GFR Est GFR ( Amer) Glucose Calcium SARS-CoV-2 (PCR) Not detected
--- NOTE | 2022-02-11 09:00 | HMH.ORTHPN ---
Subjective Date: 02/11/22 Time: 08:30 Principal diagnosis: S/p left total knee arthroplasty Interval history: Mr. Garrett is a 67-year-old male admitted to the inpatient service following an uneventful primary left total knee arthroplasty performed by Dr. Dc yesterday 02/10/2022. Today the patient is postop day #1. This morning he is lying comfortably in bed and his is present at the bedside. He reports some left knee pain as to be expected, but states that it is well controlled with as needed pain medication and rest. He reports that he has been eating and drinking well denies any episodes of nausea or vomiting. He has not yet ambulated. No history of any fevers, chills, rigors, or distal tingling/numbness. He denies any other symptoms or concerns at this time. PN: Obj Ex Vital signs: Temp Pulse Resp BP Pulse Ox 97.8 F 81 16 128/69 92 L 02/11/22 04:00 02/11/22 04:00 02/11/22 04:00 02/11/22 04:00 02/11/22 04:00 - Constitutional no acute distress, cooperative - Routine HEENT Exam Head: Present: normocephalic, atraumatic Eye: Present: EOMI, PERRL ENT: Present: mucous membranes moist - Routine Neck Exam Present: supple, full ROM, trachea midline. Absent: JVD, lymphadenopathy - Routine Respiratory Exam Absent: accessory muscle use, respiratory distress Comments: Symmetric chest movement, able to speak in complete sentences - Routine Cardiovascular Exam Present: RRR Comments: Normal peripheral pulses - Routine Abdominal Exam Present: soft. Absent: tenderness - Routine Extremities Exam Comments: Upon examination of the left knee: Dressings present are clean, dry, and intact. No evidence of drainage or bleeding noted. Out of the dressings, the surgical incision is healthy and healing well. No erythema, induration, purulent drainage, bleeding, or other signs of infection noted. There is a Dermabond Prineo skin closure system in place. Attempted movements of the left knee are somewhat painful. Thigh and calf are soft nontender; no clinical evidence of DVT or compartment syndrome noted. Posterior tibial pulse 2+; capillary refill is brisk. Sensation to light touch is grossly intact throughout. Patient is actively mobilizing the foot, ankle, and toes. Diagnostic imaging: Postoperative x-ray performed yesterday at [facility] reviewed along with radiologist report. X-ray of the left knee demonstrates a left total knee arthroplasty with orthopedic components in satisfactory alignment and fixation. No evidence of orthopedic complications noted. Radiologist report is as follows: FINDINGS: Two views of the left knee were obtained. There is no evidence of fracture or dislocation. There has been left knee arthroplasty. There is associated soft tissue air. IMPRESSION: Left knee arthroplasty without evidence of complication. Reviewed, Interpreted and Dictated by Cullen Jerome III, MD Transcribed by Jose M Hubbard Authenticated and [facility] - Routine Skin Exam Present: intact, warm, normal turgor. Absent: cyanosis, erythema, lesions, jaundice - Routine Neurological Exam Present: alert, oriented X3, CN II-XII intact, moving all extremities, normal tone, normal speech. Absent: sensory deficit, motor deficit, altered mental status - Routine Psychiatric Exam Present: normal affect, cooperative - Urinary Catheter Management Weiss Cath placed during this visit: no Progress Note: A&P (1) History of arthroplasty of left knee Status: Acute (2) Osteoarthritis of left knee Status: Chronic (3) COPD (chronic obstructive pulmonary disease) Status: Chronic (4) Class 3 obesity Status: Chronic (5) DARIO (generalized anxiety disorder) Status: Chronic Assessment and Plan for All Diagnoses:: I have discussed the clinical findings and diagnostic imaging with the
--- NOTE | 2022-02-11 09:33 | PC.NURSE ---
notified tanesha damico about need for aspirin prescription to be sent to pharmacy. stated she would send that now
--- NOTE | 2022-02-11 09:34 | HMH.PTEV ---
PHYSICIAN CERTIFICATION: I certify the specified therapy services for Nelson Carl Garrett are required, authorized, and reviewed every 30 days.
--- NOTE | 2022-02-11 09:35 | HMH.PTEV ---
Physical Therapy Evaluation Rehab PT IP Evaluation Start: 02/10/22 13:30 Freq: .once Status: Active Protocol: Document 02/11/22 09:10 RADHA (Rec: 02/11/22 09:35 [id number]) Subjective/History History History This is the initial PT IP eval for Carl Garrett, 67 yo male s /p L TKA on 02/11/22 at [facility]. Pt admitted for observation s/p surgery. Written by Rose Ritter, BIANCA Subjective Subjective Pt c/o pain and soreness in L knee. During ambulation, pt reported SOA and was redirected to sit in recliner. Pt lives in one story house with his , has one step to entrance and 3 steps to den w /o handrails. Rehab PT IP Eval Objective Appearance Patient Behavior Appropriate,Cooperative Patient Orientation Person,Place,Situation Difficulty following instructions none Speech Pattern Clear,Appropriate,Coherent Ambulation Patient Able to Ambulate Yes Ambulation Observation IP General Gait Pattern Observation Antalgic Gait,Wide Based Gait Ambulation Distance (feet) 6 Ambulation Assistive Device Rolling Walker Ambulation Ability Supervision/Stand by,Contact Guard/Hand Hold Balance Ability to Arise Able, uses arms to help Sitting Balance Steady, safe Standing Balance Steady, wide stance Dynamic Sitting Balance Ability Normal Dynamic Standing Balance Ability Fair Transfers Bed Transfer Ability Independent Sit to Stand Bed Transfer Ability Supervision/Stand by ROM LLE PT ROM Status ABN Abnormal ROM Comment limited 2nd to sx MMT LLE PT MMT ABN Abnormal MMT Grade 3/5 within available range Rehab PT IP prob,goals,plan Problems Date of Evaluation: 02/11/22 PT IP Problems Transfers,Gait,Balance,Self care,Safety Rehab Potential Rehab Potential Good Equipment Needs Assistive Devices Rolling / Wheeled Walker Plan PT Intervention Plan Transfers,Gait,Balance,Safety, Therapeutic Exercise PT Plan Frequency BID Duration LOS Discharge Goals Sit to Stand Chair Transfer Ability Supervision/Stand by Ambulation Assistive Device Rolling Walker Ambulation Distance (feet) 10 Discharge Plan PT Discharge Plan
--- NOTE | 2022-02-11 09:44 | SW/DCPLANNER ---
Addendum entered by Alessandra Herrera 02/11/22 11:13: Lauren farooq/ [facility] stated that services will begin tomorrow. Addendum entered by Susan Buckley RN 02/11/22 09:49: Ordered TERESO and alesia from [facility] for patient. JESSICA Jones Original Note: The plan for this patient is to discharge home today. PT/OT has recommended home health services at time of discharge. Patient is agreeable to home health services and prefers to use [facility]. Patient information/order has been faxed to [facility]. I will follow up once patient information/order is reviewed.
--- NOTE | 2022-02-11 09:55 | HMH.OTEV ---
OT Inpatient Evaluation Rehab OT IP Evaluation Start: 02/10/22 13:30 Freq: ONCE Status: Complete Protocol: Document 02/11/22 09:50 INÉSPETR (Rec: 02/11/22 09:55 TUNG [id number]) Rehab OT IP Assessment Subjective History Mr. Garrett is a pleasant 67- year-old male with morbid obesity, osteoarthritis, COPD, and anxiety who has had activity limiting left knee pain secondary to osteoarthritis that affects daily life. He has failed exhaustive conservative treatment measures. After consultation with orthopedics, decision made to proceed with left knee total replacement. Imaging concerning for severe tricompartmental degeneration and loss of medial joint space. Taken for replacement today in the OR by Dr. Dc. Patient tolerated procedure well without significant side effect. Pain stable at this time. Admitted for monitoring overnight. On evaluation this evening, he denies significant pain. Tolerating current medication regimen. Still has 2 L oxygen via nasal cannula in place however denies any dyspnea. Counseled on incentive spirometry on rounds. Otherwise denies chest pain, shortness of breath, nausea, vomiting, confusion. [facility] History I have reviewed the patient's past medical history: Yes Medical History: Reports:: Chronic Obstructive Pulmonary Disease (COPD). Patient lives in 1 story home with 2-3 YOBANI inside of home with . Patient independent with ADLs and fx'l mobility prior to hospitalization. will be at home 25/01 to assist a
--- NOTE | 2022-02-11 12:42 | HMH.ANESII ---
[facility] Anesthesia Record Part II Discharge Time: 13:22 Destination: Medical Surgical Department PACU nurse assessment reviewed?: Yes Patient Condition:: Good Anesthesia Complications:: None Swallowing reflex intact?: Yes Cyanosis?: No Blood Pressure: 158/83 Pulse Rate: 83 Temperature: 98.3 F Mental Status: Alert & Oriented Pain level:: 0 Nausea and/or vomitting:: None Intake, IV Amount: 0
[2022-02-11 12:43] VITALS: BP 158/83; PULSE 83; TEMP 36.8
--- NOTE | 2022-02-12 14:34 | CARE MANAGER ---
Contacted patient related to discharge from hospital. States patient is with physical therapist at this time. He is doing very well and denies any questions or concerns at this time. Aware of appointments. JESSICA Jones
== END 2022-02-11 11:08 | disposition home health service (06) ==
LOC: 2ND 14:17
PROVIDERS: Admitting Provider Orthopaedic Surgery; PCP Internal Medicine Adolescent Medicine; Visit Provider Internal Medicine Adolescent Medicine
PROC: (CPT 27447; principal; 2022-02-10 11:00)
DX: M17.12 Unilateral primary osteoarthritis, left knee (principal); E66.01 Morbid (severe) obesity due to excess calories; Z68.41 Body mass index [BMI] 40.0-44.9, adult; J44.9 Chronic obstructive pulmonary disease, unspecified; Z79.899 Other long term (current) drug therapy; Z87.891 Personal history of nicotine dependence; F41.1 Generalized anxiety disorder; Z20.822 Contact with and (suspected) exposure to COVID-19
CPT/HCPCS: 27447; G0378; 36415; 73560; 80048; 85025; 86850; 94640; 96374; 97161; 97165; C1713; C1776; C9803; J2405; U0003; U0005

== ENCOUNTER → 2022-02-24 08:11 | Outpatient (CLI) | payer MEDICARE, BC, SELFPAY ==
--- NOTE | 2022-02-24 | CA_ITS ---
FINAL REPORT TECHNIQUE: extremity venous duplex was performed with augmentation and compression. CLINICAL HISTORY: left total knee replacement 02/10/22. Patient has been taking ASA daily since surgery. HLD. Patient states his leg has been swelling recently. FINDINGS: Proper flow is seen throughout the deep venous system. There is no evidence of deep venous thrombosis. IMPRESSION: No evidence of left lower extremity deep venous thrombosis. Reviewed, Interpreted and Dictated by Romeo Cruz MD Transcribed by Shital Singh Authenticated and [facility]
--- NOTE | 2022-02-24 08:15 | XR_ITS ---
FINAL REPORT CLINICAL HISTORY: TKA left knee COMPARISON: 02/10/2022 FINDINGS: Left knee Three views were obtained. There is no acute fracture or dislocation. Left knee prosthesis is identified with overlying soft tissue swelling anterior to the patella measuring 2.1 cm. There is a well corticated ossific density posterior to the medial femoral condyle which may be related to loose bodies or postsurgical change. IMPRESSION: Postsurgical changes as detailed above. Reviewed, Interpreted and Dictated by Romeo Cruz MD Transcribed by Urszula Garcia Authenticated and [facility]
[2022-02-24 10:18] LABS: Basophils # 0.1 K/mm3 (0-0.2); Eosinophils # 0.1 K/mm3 (0.0-0.4); Eosinophils % 1.1 % (0.1-12.0); Hematocrit 46.2 % (42.0-52.0); Hemoglobin 14.3 g/dL (14.1-18.0); Lymphocytes # 1.7 K/mm3 (0.7-4.5); Lymphocytes % 16.9 % (10-50); Mean Corpuscular Hemoglobin 30.9 pg (27.0-31.2); Mean Corpuscular Volume 99.7 fl (80-94); Mean Platelet Volume 8.1 fl (7.4-10.4); Monocytes # 0.6 K/mm3 (0.1-1.0); Monocytes % 6.1 % (1.7-9.3); Neutrophils # 7.7 K/mm3 (1.8-7.8); Platelet Count 342 K/mm3 (142-424); Red Blood Count 4.63 M/mm3 (4.60-6.20); Red Cell Distribution Width 13.9 % (11.5-17.5); White Blood Count 10.3 K/mm3 (4.8-10.8)
[2022-02-24 10:55] LABS: Erythrocyte Sedimentation Rate 21 mm/hr (0-20)
[2022-02-24 11:29] LABS: C-Reactive Protein 10.9 mg/L (0-4)
== END ==
PROVIDERS: PCP Family Medicine; Visit Provider Physician Assistant Surgical
DX: M17.12 Unilateral primary osteoarthritis, left knee (principal); Z96.652 Presence of left artificial knee joint; Z09 Encounter for follow-up examination after completed treatment for conditions other than malignant neoplasm; M25.562 Pain in left knee; R60.0 Localized edema
CPT/HCPCS: 36415; 73562; 85025; 85651; 86140; 93971

== ENCOUNTER → 2022-03-11 09:13 | Outpatient (CLI) | payer MEDICARE, BC, SELFPAY ==
--- NOTE | 2022-03-11 09:21 | XR_ITS ---
FINAL REPORT CLINICAL HISTORY: Lt TKA f/u COMPARISON: February 24, 2022 FINDINGS: Three views of the left knee reveal no evidence of fracture or dislocation. There has been total knee arthroplasty. There is a soft tissue calcification anterior to the distal femur. IMPRESSION: Total knee arthroplasty without evidence of complication. Reviewed, Interpreted and Dictated by Cullen Jerome III, MD Transcribed by Jose M Hubbard Authenticated and . [facility]
[2022-03-11 10:17] LABS: Basophils # 0.1 K/mm3 (0-0.2); Eosinophils # 0.1 K/mm3 (0.0-0.4); Eosinophils % 1.2 % (0.1-12.0); Hematocrit 50.1 % (42.0-52.0); Hemoglobin 15.5 g/dL (14.1-18.0); Lymphocytes # 1.7 K/mm3 (0.7-4.5); Lymphocytes % 25.8 % (10-50); Mean Corpuscular Hemoglobin 29.9 pg (27.0-31.2); Mean Corpuscular Volume 96.4 fl (80-94); Mean Platelet Volume 8.3 fl (7.4-10.4); Monocytes # 0.5 K/mm3 (0.1-1.0); Monocytes % 7.4 % (1.7-9.3); Neutrophils # 4.3 K/mm3 (1.8-7.8); Neutrophils % 64.5 % (37.0-80.0); Platelet Count 256 K/mm3 (142-424); Red Cell Distribution Width 13.5 % (11.5-17.5); White Blood Count 6.7 K/mm3 (4.8-10.8)
[2022-03-11 10:41] LABS: Erythrocyte Sedimentation Rate 14 mm/hr (0-20)
[2022-03-11 10:46] LABS: C-Reactive Protein 2.9 mg/L (0-4)
== END ==
PROVIDERS: PCP Family Medicine; Visit Provider Orthopaedic Surgery
DX: M17.12 Unilateral primary osteoarthritis, left knee (principal); Z96.652 Presence of left artificial knee joint; R06.02 Shortness of breath
CPT/HCPCS: 36415; 73562; 85025; 85651; 86140; 94762

== ENCOUNTER 2022-05-14 09:00 | Outpatient (RCR) | payer MEDICARE, BC, SELFPAY ==
--- NOTE | 2022-03-16 11:20 | HMH.PTOPEV ---
PT Outpatient Evaluation Rehab PT Outpatient Evaluation Start: 03/16/22 08:56 Freq: Status: Active Protocol: Document 03/16/22 08:56 EDSONDEVIN (Rec: 03/16/22 11:19 RAULCALE [id number]) E-signed By Toshia Kee, PT Outpatient Therapy Subjective History Subjective History Pt is a 67 y/o male that presents to PT 5 weeks s/p L TKA performed on 02/10/22. Pt reports he had redness of the front of the corey after surgery and reports having a doppler US without findings of DVT and took medication for an infection that has since cleared up. Pt states he finished home health PT last week and is continuing to do some exercises at home. Pt reports he has a recumbent bike that he rides 2-3x a week . Pt also reports he did PT prior to his surgery as well. Pt denies pain currently but reports some numbness on the lateral side of the knee. Pt reports he has been performing all activities without issues with exception of kneeling on the knee. Pt reports he was using a walker for ambulation until last week and denies falls since ambulating independently. Pt had a radiograph performed at [facility] on 03/11/22 with good alignment noted. Pt reports he has 3 stairs without a HR that he has been traversing without issues in his home as well. Medical History: COPD Occupation: Retired Chief Complaint Pain,Stiff Symptoms Relieved By Ice,Elevation Prior Functional Limitations Standing,Sitting,Walking, Stairs,Balance Current Functional Limitations Stairs,Balance,Bending/ Stooping Symptom Description Intermittent Level of pain today (0-10) 0 Pain scale - at its best (0-10) 0 Pain scale - at its worst (0-10) 5 Hip/Knee Eval Gait Observation General Gait Pattern Observation Decrease Weight Bear (L) A
--- NOTE | 2022-04-15 10:33 | HMH.RHREAS ---
Rehab Reassessment Rehab OP Re-assessment Start: 04/15/22 09:49 Freq: Status: Active Protocol: Document 04/15/22 09:49 RAULCALE (Rec: 04/15/22 10:33 LESLEY [id number]) E-signed By Toshia Kee PT Rehab Re-assessment Subjective Subjective Pt reports he has no pain/ difficulty with daily activities, walking or stairs. Pt reports he has not returned to his surgeon after the surgery or had radiographs and is unsure of when he returns. Objective Objective Notes Knee AROM: 0-3-120 Knee MMT: gross hip strength 4 +/5, knee ext/flex 5/5 Gait: heel strike apparent, no AD Assessment Progress Assessment Progressing as Expected Assessment Notes Pt is 9 weeks s/p L TKA performed on 02/10/22. Pt has attended 8 PT visits consisting of aerobic exercise , lower extremity stretching/ strengthening, knee mobility, manual therapy and modalities with good tolerance. Patient demonstrates 0-3-120 knee AROM and 4+/5 LE strength. Pt also demonstrates proper gait mechanics without an AD. Pt would continue to benefit from skilled PT to further improve knee extension AROM and balance/proprioception training. Patient goals met ST/ Goals Not Met LTG Revised Goals n/a Plan Plan Continue initial POC Frequency of Therapy 2 Duration of therapy 2-3 Time and Billing Re-Eval Time 8 Re-Eval Billing Units 1 PHYSICIAN CERTIFICATION: I certify the specified therapy services for Nelson Garrett are required, authorized, and reviewed every 30 days.
--- NOTE | 2022-05-14 09:51 | HMH.RHREAS ---
Rehab Reassessment Rehab OP Re-assessment Start: 04/15/22 09:49 Freq: Status: Active Protocol: Document 05/14/22 09:00 EDSONDEVIN (Rec: 05/14/22 09:50 RAULCALE [id number]) E-signed By Toshia Kee PT Rehab Re-assessment Subjective Subjective Pt reports he feels 100% improved since starting PT. Pt denies difficulty/pain with functional activities. Pt reports pain at worse as 1/10 within the past week. Objective Objective Notes L knee AROM: 0-120 LE MMT: 11/06 Girth: 48 cm mid patellar girth Gait: non-antalgic gait with heel toe pattern without AD Assessment Progress Assessment Progressing as Expected Assessment Notes Pt has attended 13 PT visits consisting of aerobic exercise , knee AROM, LE stretching/ strengthening, gait training, balance/proprioception, manual therapy and modalities with good tolerance. Pt demonstrates 0-120 knee AROM and functional strength without complaints of pain. Pt has met all PT goals and is appropriate to discharge to independent [facility]. Patient goals met LT/7 Goals Not Met n/a Revised Goals n/a Plan Plan Discharge to independent [facility] Frequency of Therapy 0 Duration of therapy 0 Time and Billing Re-Eval Time 8 Re-Eval Billing Units 1 PHYSICIAN CERTIFICATION: I certify the specified therapy services for Nelson Garrett are required, authorized, and reviewed every 30 days.
== END 2022-05-14 09:05 | disposition home or self-care (01) ==
LOC: PT 09:00
PROVIDERS: PCP Family Medicine; Visit Provider Orthopaedic Surgery
DX: M25.562 Pain in left knee (principal); Z96.652 Presence of left artificial knee joint
CPT/HCPCS: 97010; 97014; 97110; 97112; 97140; 97163; 97164; 97530; G0283

== ENCOUNTER → 2022-06-10 09:36 | Outpatient (CLI) | payer MEDICARE, BC, SELFPAY ==
--- NOTE | 2022-06-10 09:41 | XR_ITS ---
FINAL REPORT CLINICAL HISTORY: knee pain..surgery feb 10 COMPARISON: 03/11/2022 FINDINGS: Left knee Three views were obtained. There is no acute fracture or dislocation. The patient is status post knee arthroplasty. There is calcification superior to the patella which appears new of uncertain significance. IMPRESSION: Postsurgical changes as detailed above. Reviewed, Interpreted and Dictated by Cullen Jerome III, MD Transcribed by Urszula Garcia Authenticated and [facility]
== END ==
PROVIDERS: PCP Family Medicine; Visit Provider Orthopaedic Surgery
DX: Z96.652 Presence of left artificial knee joint (principal); M25.562 Pain in left knee
CPT/HCPCS: 73562

== ENCOUNTER → 2022-10-15 09:45 | Outpatient (CLI) | payer MEDICARE, BC, SELFPAY ==
--- NOTE | 2022-10-15 10:03 | ECG_ITS ---
APPROVED REPORT Exam: Resting ECG HR:64 bpm ECG Measurements Heart Rate 64 AXES AK 175 P 53 QRSd 88 QRS -32 QT 399 T 18 QTc 408 Conclusion SINUS RHYTHM LEFT AXIS DEVIATION [QRS AXIS < -30] PATTERN CONSISTENT WITH PULMONARY DISEASE ABNORMAL ECG UNCONFIRMED REPORT Electronically signed by : Fredy Marina MD 10/16/2022 09:33:34
[2022-10-15 10:08] LABS: Microscopic, Urine URINE MICROSCOPIC (MICROSCOPIC)
--- NOTE | 2022-10-15 10:23 | XR_ITS ---
FINAL REPORT CLINICAL HISTORY: pre op, htn, obesity COMPARISON: 02/07/2022 FINDINGS: TWO-VIEW CHEST The heart size is normal. The mediastinum is normal. The lungs are clear. There is no pneumothorax. IMPRESSION: No acute cardiopulmonary process. Reviewed, Interpreted and Dictated by Cullen Jerome III, MD Transcribed by Urszula Garcia Authenticated and [facility]
[2022-10-15 10:24] LABS: Appearance,Urine CLEAR (Clear); Bilirubin,Urine Negative (Negative); Blood, Urine Negative (Negative); Color,Urine YELLOW (Yellow); Glucose,Urine (UA) Negative (Negative); Ketones,Urine Negative (Negative); Leukocyte Esterase,Urine Negative (Negative); Nitrate,Urine Negative (Negative); PH,Urine 5.5 (5.0-8.5); Protein,Urine Negative (Negative); Specific Gravity, Urine >= 1.030 (1.005-1.030); Urobilinogen,Urine 0.2 EU/dl (0.2)
[2022-10-15 10:45] LABS: Basophils # 0.1 K/mm3 (0-0.2); Basophils % 0.7 % (0.1-2.0); Eosinophils # 0.1 K/mm3 (0.0-0.4); Eosinophils % 1.2 % (0.1-12.0); Hematocrit 51.2 % (42.0-52.0); Hemoglobin 17.2 g/dL (14.1-18.0); Lymphocytes # 1.9 K/mm3 (0.7-4.5); Lymphocytes % 28.4 % (10-50); Mean Corpuscular HGB Conc 33.5 g/dL (31.8-35.4); Mean Corpuscular Hemoglobin 30.4 pg (27.0-31.2); Mean Corpuscular Volume 90.7 fl (80-94); Mean Platelet Volume 8.4 fl (7.4-10.4); Monocytes # 0.5 K/mm3 (0.1-1.0); Neutrophils # 4.2 K/mm3 (1.8-7.8); Neutrophils % 62.8 % (37.0-80.0); Platelet Count 178 K/mm3 (142-424); Red Blood Count 5.65 M/mm3 (4.60-6.20); Red Cell Distribution Width 13.4 % (11.5-17.5); White Blood Count 6.7 K/mm3 (4.8-10.8)
[2022-10-15 10:56] LABS: Chloride 106 mmol/L (98-107); Potassium 5.3 mmoL/L (3.5-5.1); Squamous Epithelial Cell,Urine Occasional #/hpf (0-5)
[2022-10-15 10:59] LABS: Blood Urea Nitrogen 16 mg/dl (9-20); Estimated Glomerular Filt Rate 97 ml/min (>60); GFR (African American) 117 ML/MIN (>60)
[2022-10-15 11:00] LABS: Calcium 9.1 mg/dl (8.4-10.2); Carbon Dioxide 29 mmol/L (22.0-30.0); Glucose 112 mg/dl (74-100)
[2022-10-15 15:08] LABS: Anion Gap 13.3 mEq/L (5-15); Sodium 143 mmol/L (136-145)
== END ==
PROVIDERS: PCP Family Medicine; Visit Provider Surgery
DX: Z96.652 Presence of left artificial knee joint (principal); M25.562 Pain in left knee
CPT/HCPCS: 36415; 71046; 80048; 81001; 85025; 93005

== ENCOUNTER 2022-11-09 07:38 | Day surgery (SDC) | payer MEDICARE, BC, SELFPAY ==
[2022-11-04 14:16] VITALS: BMI 41.5
[2022-11-09] VITALS (12 sets, daily range): BP systolic 112–182; BP diastolic 78–107; PULSE 65–82; RESP 14–18; TEMP 36.1–36.6; O2SAT 94–97
--- NOTE | 2022-11-09 08:32 | EXP.ANES.CKL ---
[facility] Disclaimer: The information contained in this section may have been updated after the patient was seen, as this information can be updated by other users. Medical History History of COPD History of umbilical hernia Surgical History History of colonoscopy History of excision of pilonidal cyst History of left knee replacement History of tonsillectomy and adenoidectomy Family History Other Family history of breast cancer Family history of hypertension Social History Smoking Status: Former smoker pack-years: 44 alcohol intake: never substance use type: denies use current occupational status: retired Travel in the last 8 weeks: None household members: spouse housing: house caffeine: No [facility] Anesthesia Checklist Patient Identification Patient Identification: Arm Band and Verbal (Name & ) Structural Data Admitted From: Home Planned Operative Procedure/s: Lap. UHR Consent for Planned Operative Procedure(s) Verified: Yes NPO Status Verified Time NPO: 00:00 Chart Verification Results Verified: BMP Additional verifications Anesthesia Reactions: Yes Hx Blood Transfusions: No Blood Transfusion Reaction: No Airway Assessment C-Spine Mobility Assessed: Yes TMJ Mobility Assessed: Yes Dentition: Good Dentition Neurological Assessment Level of Consciousness: Awake Hx Seizures: No Numbness or tingling in extremities: No Anesthesia Plan Anesthesia Risk discussed: Yes Anesthesia Plan: Verified ASA Class: III Anesthesia Type: General
[2022-11-09 08:40] LABS: Chloride 101 mmol/L (98-107)
[2022-11-09 08:41] LABS: Potassium 4.2 mmoL/L (3.5-5.1); Sodium 140 mmol/L (136-145)
[2022-11-09 08:44] LABS: Anion Gap 16.2 mEq/L (5-15); Blood Urea Nitrogen 14 mg/dl (9-20); Carbon Dioxide 27 mmol/L (22.0-30.0); Creatinine Clearance Estimated 83 mL/min (50-200); Estimated Glomerular Filt Rate 97 ml/min (>60); GFR (African American) 117 ML/MIN (>60); Glucose 131 mg/dl (74-100)
--- NOTE | 2022-11-09 10:59 | EXP.OP.NOTE ---
Date of procedure: 11/09/22 Pre-op Diagnosis:: Umbilical hernia Post-op Diagnosis:: Same Procedure performed:: Diagnostic laparoscopy with open repair of chronically incarcerated umbilical hernia with with placement of large sized Bard ventral Herb mesh (laparoscopically assisted open umbilical hernia repair) Surgeon:: Cullen Amborcio MD HEALTHCARE CONSULTANT:: Korey Warner Anesthesia: GETA Estimated blood loss (mL): 30 Operative findings:: He had a relatively small defect measuring 15 to 20 mm. There was a rather large hernia sac and chronically incarcerated omentum. There was herniated preperitoneal fat as well. Operative note:: Patient was taken to the operating room. He was positioned in supine position. General anesthesia was induced. Abdomen was prepped and draped in the standard surgical fashion. Through a 5 mm left subcostal incision optical trocar was inserted. CO2 pneumoperitoneum was then achieved to 15 mmHg. Laparoscopic surveillance was carried out. There was herniated omentum. 5 mm trocar was inserted in the left lateral abdomen. With traction on the omentum and abdominal pressure it was able to be reduced. Overall size of the defect appeared to be relatively small. Plan was made for laparoscopically assisted open repair. Subumbilical incision was made. Dissection was carried down to hernia sac. This was dissected free from the umbilical subdermis down to the fascia while maintaining pneumoperitoneum. It was cleaned free from the fascia. Hernia sac was then opened evacuating pneumoperitoneum. Extraneous peritoneum of the hernia sac was excised down to the fascia. There was also some herniated preperitoneal fat and this was dissected free with the hernia sac. This was sent off as hernia sac. Overall size of the defect measured 15 to 20 mm. Large sized Bard Ventralex mesh was inserted into the peritoneal cavity posterior to the defect. CO2 pneumoperitoneum was reestablished. The mesh was oriented laparoscopically intracorporeally. Several OPTi fix tacks were used to ensure good positioning of the mesh. The tails of the mesh were then sutured superiorly and inferiorly through the open technique to the fascia using 2-0 PDS suture. Prolene tails were cut flush with the fascia. Local anesthetic was infiltrated. Umbilical subdermis was reapproximated to the underlying fascia with multiple interrupted 2-0 Vicryl sutures. Local anesthetic was infiltrated. Subdermis was closed with running 3-0 Vicryl. Laparoscopic inspection was then carried out of the mesh and a few additional OPTi fix tacks were placed. CO2 pneumoperitoneum was then evacuated. All incisions were closed with 4-0 Monocryl in a subcuticular fashion. Dermabond and dressing was applied. Condition: stable Disposition: PACU Complications:: None immediately apparent
--- NOTE | 2022-11-09 11:09 | EXP.ANES.I ---
[facility] Anesthesia Record Part I Anesthesia Record I Intake, IV Amount: 1,000 Estimated blood loss (mL): 5 Urine output (mL): 0 Blood Pressure: 182/107 SaO2: 94 Pulse Rate: 65 Respiratory Rate: 14 Temperature: 97 F Patient is:: Drowsy, Nasal O2, Oral/Nasal airway and Stable Stable to PACU at:: 11:03
--- NOTE | 2022-11-09 11:44 | SUR.PHASEI ---
1135- detailed report called to andie martins in post op 1137- pt left in stable condition with andie martins in post op. All dressings cdi, VSS.
--- NOTE | 2022-11-09 12:30 | EXP.ANES.II ---
[facility] Anesthesia Record Part II Anesthesia Record Part II Discharge Time: 11:36 Destination: Surgical Day Care (OP Surgery) PACU nurse assessment reviewed?: Yes Patient Condition:: Good Anesthesia Complications:: None Swallowing reflex intact?: Yes Cyanosis?: No Blood Pressure: 157/84 Pulse Rate: 73 Temperature: 97.3 F Mental Status: Alert & Oriented Pain level:: 0 Nausea and/or vomitting:: None Intake, IV Amount: 0
== END 2022-11-09 12:32 | disposition home or self-care (01) ==
PROVIDERS: PCP Family Medicine; Visit Provider Surgery
PROC: 0WQF4ZZ Repair Abdominal Wall, Percutaneous Endoscopic Approach (ICD-10-PCS; principal; 2022-11-09 09:15)
DX: K42.0 Umbilical hernia with obstruction, without gangrene (principal); Z79.899 Other long term (current) drug therapy
CPT/HCPCS: 49592; 80048; 88302; 96374; C1781; J2405

== ENCOUNTER → 2022-11-25 15:14 | Outpatient (CLI) | payer MEDICARE, BC, SELFPAY ==
--- NOTE | 2022-11-25 15:26 | CT_ITS ---
FINAL REPORT TECHNIQUE: Axial CT images of the chest were obtained without contrast. Low-dose protocol was utilized. This study was performed with techniques to keep radiation doses as low as reasonably achievable (ALARA). Individualized dose reduction techniques using automated exposure control or adjustment of mA and/or kV according to the patient's size were employed. CLINICAL HISTORY: lung cancer screening PREVIOUS SMOKER 2 PPD X 40YEARS, QUIT 4 YEARS AGO COMPARISON: 11/24/2021 FINDINGS: CT CHEST WITHOUT, LOW DOSE SCREENING CT Di Vol: 2.90 mGy DLP: 102.64 mGy*cm There is no axillary, mediastinal, or hilar adenopathy. The heart size is normal. There is no pleural or pericardial effusion. The lung windows show the previously noted right upper lobe nodule with surrounding ground-glass opacity has increased from 4 mm to 6 mm. There is mild emphysema. Mild scarring. There is a stable 3 mm right lower lobe nodule seen on image 44. Limited images of the upper abdomen are unremarkable. IMPRESSION: Right upper lobe nodule increased in size from prior. LR Category 4A: 3 month follow-up low-dose chest CT is recommended. Reviewed, Interpreted and Dictated by Cullen Jerome III, MD Transcribed by Jhoana Larios Authenticated and [facility]
== END ==
PROVIDERS: PCP Family Medicine; Visit Provider Internal Medicine Pulmonary Disease
DX: Z87.891 Personal history of nicotine dependence (principal); Z12.2 Encounter for screening for malignant neoplasm of respiratory organs
CPT/HCPCS: 71271

== ENCOUNTER → 2022-11-26 07:52 | Outpatient (CLI) | payer MEDICARE, BC, SELFPAY ==
--- NOTE | 2022-11-26 07:54 | US_ITS ---
FINAL REPORT TECHNIQUE: Ultrasound images of the abdominal aorta were obtained. CLINICAL HISTORY: AAA,FORMER SMOKER COMPARISON: None FINDINGS: ULTRASOUND OF THE ABDOMINAL AORTA The aorta measures up to 2.2 cm. The bifurcation is normal. IMPRESSION: No evidence of abdominal aortic aneurysm. Reviewed, Interpreted and Dictated by Cullen Jerome III, MD Transcribed by Jhoana Larios Authenticated and [facility]
== END ==
PROVIDERS: PCP Family Medicine; Visit Provider Family Medicine
DX: Z13.6 Encounter for screening for cardiovascular disorders (principal); Z87.891 Personal history of nicotine dependence
CPT/HCPCS: 76705

== ENCOUNTER → 2022-12-11 12:37 | Outpatient (CLI) | payer MEDICARE, BC, SELFPAY | PROVIDERS: PCP Family Medicine; Visit Provider Internal Medicine Pulmonary Disease | DX: G47.33 Obstructive sleep apnea (adult) (pediatric) (principal); R06.83 Snoring | CPT/HCPCS: G0399 ==

== ENCOUNTER → 2023-02-03 09:30 | Outpatient (CLI) | payer MEDICARE, BC, SELFPAY ==
--- NOTE | 2023-02-03 09:34 | XR_ITS ---
FINAL REPORT CLINICAL HISTORY: Left TKA COMPARISON: 06/10/2022 FINDINGS: LEFT KNEE SERIES Three views of the left knee were obtained. There is no acute fracture or dislocation. There is a left knee arthroplasty that is stable. There is no soft tissue abnormality. IMPRESSION: No acute abnormality. Reviewed, Interpreted and Dictated by Cullen Jerome III, MD Transcribed by Dioni Lua Authenticated and . [facility]
== END ==
PROVIDERS: PCP Family Medicine; Visit Provider Orthopaedic Surgery
DX: T84.033A Mechanical loosening of internal left knee prosthetic joint, initial encounter (principal); M25.562 Pain in left knee
CPT/HCPCS: 73560

== ENCOUNTER → 2023-06-08 15:33 | Outpatient (CLI) | payer MEDICARE, BC, SELFPAY ==
--- NOTE | 2023-06-08 15:33 | CT_ITS ---
FINAL REPORT TECHNIQUE: Axial images were obtained from the lung apex to the mid abdomen by computed tomography. Coronal and sagittal reformatted images were obtained. This study was performed with techniques to keep radiation doses as low as reasonably achievable, (ALARA). Individualized dose reduction techniques using automated exposure control or adjustment of mA and/or kV according to the patient's size were employed. CLINICAL HISTORY: May 2023, YEARLY CHECKUP PER PATIENT. COMPARISON: 11/25/2022 FINDINGS: There is no axillary adenopathy. There is no hilar or mediastinal adenopathy. Heart size is normal. There is no pericardial or pleural effusion. Moderate to severe coronary artery calcification is present. Moderate changes of emphysema are noted as well as mild scarring. There is a 6 mm right upper lobe nodule with surrounding ground glass opacity which was noted on the prior CT of November, which is stable in size and appearance. This nodule is best seen on image #17. There is a 3 mm right lower lobe nodule previously identified, also stable. There is a partially imaged 18 mm left upper quadrant soft tissue nodule of uncertain etiology, this may be adrenal or renal. IMPRESSION: Stable 6 mm right upper lobe nodule with surrounding ground glass opacity when compared to prior films of November. Recommend 6-month follow-up LDCT for further evaluation. Partially imaged 18 mm left upper quadrant soft tissue nodular density, of uncertain etiology. This may be adrenal or renal in origin, and would recommend an abdominal CT scan with contrast for further evaluation. Reviewed, Interpreted and Dictated by Cullen Jerome III, MD Transcribed by Louisa Sánchez Authenticated and [facility]
== END ==
PROVIDERS: PCP Family Medicine; Visit Provider Internal Medicine Pulmonary Disease
DX: R91.8 Other nonspecific abnormal finding of lung field (principal)
CPT/HCPCS: 71250

== ENCOUNTER 2023-10-25 06:47 | Outpatient (CLI) | payer MEDICARE, BC, SELFPAY ==
--- NOTE | 2023-10-25 | CA_ITS ---
APPROVED REPORT Exam: Pharmacologic Technologist: Ignacia Philippe Ht: 6 ft 1 in Wt: 325 lbs BSA: 2.64 m2 HR: 58 bpm BP: 170/86 mmHg Indications: Dyspnea Medical History Medications: Alprazolam,,,,, Aspirin,,,,, Atorvastatin,,,,, Escitalopram,,,,, Albuterol,,,,, ANoro Ellipta,,,,, Furosemide,,,,, Stress Test Details Test: LEXISCAN HR Resting HR: 64 bpm Max Heart Rate (APMHR): 154 bpm Max HR Achieved: 84 bpm Target HR (85% APMHR): 131 bpm % of APMHR: 55 Recovery HR: 76 bpm BP Resting BP: 170.0/86.0 mmHg Max BP: 170.0/86.0 mmHg Recovery BP: 144.0/67.0 mmHg ECG Resting ECG: Normal sinus rhythm Clinical Exercise duration: 04:00 min Highest Stage Achieved: Exercise capacity: 1.0 METs Stress ECG Conclusion Symptoms: None Arrhythmias/Ectopy: None ST-T Changes: No significant ST changes Conclusion: Unremarkable Lexiscan stress test. Myoview images reported separately. Test Summary REST . . . . . . . Resting REST 16:36 . . 64 . 170/ 86 . . Stage 1 . . . . . . . Myoview Injected Stage 1 01:00 . . 72 . . . . Stage 2 01:00 . . 83 . . . . Stage 3 01:00 . . 81 . 140/ 73 . . Stage 4 01:00 . . 78 . 152/ 69 . Stop exercise at 04:00 RECOVERY 01:00 . . 77 . 140/ 67 . . RECOVERY 02:00 . . 77 . 140/ 67 . . RECOVERY 03:00 . . 74 . 140/ 67 . . RECOVERY 03:26 . . 78 . 144/ 67 . . Electronically signed by : Juana Milligan MD 10/26/2023 13:07:09
--- NOTE | 2023-10-25 06:50 | NM_ITS ---
APPROVED REPORT Exam: Nuclear Stress Test Indication: SOB, Fatigue, HTN, CAD, Former tobacco use, Family history Patient Location: Outpatient Stress Tech: Ignacia Philippe NM Tech:Lala Peterson, ARRT, RT (R)(N) Ht: 6 ft 1 in Wt: 324 lbs HR: 64 bpm BP: 170/86 mmHg BSA: 2.64 m2 TID: 1.18 BMI: 42.7 History: SOB, Fatigue, HTN, CAD, Former tobacco use, Family history Procedure: Patient received 0.4 mg of intravenous Lexiscan, resting heart rate 64 bpm, resting blood pressure 170/86 mmHg, with Lexiscan maximum heart rate achieved was 84 bpm which is % of the maximum predicted heart rate and blood pressure was 170/86 mmHg. With Lexiscan, patient denied any complaint of chest pain. Cardiac Stress and Resting SPECT Images: Cardiac Stress and Resting SPECT images were obtained using technetium 99m Myoview 32.3 mCi stress and 10.35 mCi at rest. Resting and stress imaging in supine and prone position demonstrate a medium sized, mild, reversible perfusion defect in the basal to mid inferior LV wall. Gated imaging demonstrates mild reduction in global and regional LV systolic function. LVEF is calculated at 49%. Conclusion: Medium sized, mild, reversible perfusion defect in the basal to mid inferior LV wall. Gated imaging demonstrates mild reduction in global and regional LV systolic function. LVEF is calculated at 49%. Electronically signed by : Juana Milligan MD 10/26/2023 13:09:45
[2023-10-25] MEDS: SODIUM CHLORIDE 0.9% 10ML SYR (RAD ONLY) 10 ML IV ×2 (09:14→09:15)
[2023-10-25] MEDS: REGADENOSON 0.4MG/5ML SYRINGE 0.400000000000000022 MG IV (09:14)
[2023-10-25] MEDS: ISOTOPE MYOVIEW (PER STUDY) 1 DOSE IV (09:15)
== END 2023-10-25 23:59 | disposition home or self-care (01) ==
LOC: RAD 06:48
PROVIDERS: PCP Family Medicine; Visit Provider Physician Assistant
DX: I25.10 Atherosclerotic heart disease of native coronary artery without angina pectoris (principal); I25.84 Coronary atherosclerosis due to calcified coronary lesion; G47.33 Obstructive sleep apnea (adult) (pediatric); J43.2 Centrilobular emphysema; E66.9 Obesity, unspecified; M17.12 Unilateral primary osteoarthritis, left knee; Z68.41 Body mass index [BMI] 40.0-44.9, adult
CPT/HCPCS: 78452; 93017; 93018; A9502; J2785

== ENCOUNTER 2023-10-28 07:46 | Outpatient (CLI) | payer MEDICARE, BC, SELFPAY ==
--- NOTE | 2023-10-28 07:46 | CA_ITS ---
APPROVED REPORT EXAM: Comprehensive 2D, Doppler, and color-flow Echocardiogram Contact Center Specialist: Puja Rome RT(R) Ht: 6 ft 1 in Wt: 325lbs BSA: 2.64 BP: 136/76 mmHg Indications: SOB, COPD, ex smoker, edema, obesity, CAD Echo Enhancing Agent Indication: Endocardial border delineation Agent(s) / Amount(s) Used: Definity 2 cc 2D Dimensions EF AP4 61.30 % GL Strain -13.5 % M-Mode Dimensions RVDd 2.86 cm (0.9-2.6) LA Diam 4.13 cm (1.9-4.0) LVDd 6.62 cm (3.5-5.7) LVDs 5.59 cm (3.5-5.7) IVSd 1.07 cm (0.6-1.1) PWd 0.76 cm (0.6-1.1) EF (Teich) 32.00% FS 15.60% EDV (Teich) 225.10 mL ESV (Teich) 153.00 mL LV Diastology E Decel Time 187 (160-240 msec) E/A Ratio 1.0 Mitral Valve MV E Max [place]. 83.0 (40-130 cm/s) MV A Velocity 86.0 (40-130 cm/s) E/A Ratio 0.97 MV PHT 55.0 ms Left Ventricle The left ventricle is normal size. The left ventricular systolic function is normal. The left ventricular ejection fraction is within the normal range. There is normal left ventricular wall thickness. There is normal LV segmental wall motion. The left ventricular diastolic function is normal. No left ventricle thrombus noted on this study. LVEF is 55%. Right Ventricle The right ventricle is normal size. The right ventricular systolic function is normal. Atria The left atrium size is normal. The right atrium size is normal. There is no Doppler evidence of interatrial shunt. Aortic Valve The aortic valve is mildly thickened. There is no aortic valvular stenosis. Trace aortic regurgitation. Mitral Valve The mitral valve leaflets are mildly thickened. No evidence of mitral valve stenosis. Trace mitral regurgitation. Tricuspid Valve The tricuspid valve leaflets are thin and pliable. Trace tricuspid regurgitation. There is insufficient TR jet to estimate RVSP. Pulmonic Valve The pulmonary valve is normal in structure. Trace pulmonic regurgitation. Great Vessels The aortic root is normal in size. The ascending aorta is normal in size. IVC is normal in size and collapses >50% with inspiration. Pericardium There is no pericardial effusion. Other Information Study Quality: Technically Difficult Conclusion Technically difficult study due to poor acoustic windows. Normal biventricular systolic function. No significant valvular stenosis or regurgitation. Electronically signed by : Juana Milligan MD 11/01/2023 11:38:13
[2023-10-28] MEDS: DEFINITY US ECHO CONTRAST 2ML INJ 2 MG IV (08:47)
== END 2023-10-28 23:59 | disposition home or self-care (01) ==
LOC: RT 07:46
PROVIDERS: PCP Family Medicine; Visit Provider Physician Assistant
DX: I25.10 Atherosclerotic heart disease of native coronary artery without angina pectoris (principal); I25.84 Coronary atherosclerosis due to calcified coronary lesion; G47.33 Obstructive sleep apnea (adult) (pediatric); J43.2 Centrilobular emphysema; E66.9 Obesity, unspecified; M17.12 Unilateral primary osteoarthritis, left knee; Z68.41 Body mass index [BMI] 40.0-44.9, adult
CPT/HCPCS: 93306; Q9957

== ENCOUNTER 2023-11-24 08:52 | Day surgery (SDC) | payer MEDICARE, BC, SELFPAY ==
[2023-11-24] VITALS (11 sets, daily range): BP systolic 115–156; BP diastolic 58–86; PULSE 67–96; RESP 16–18; TEMP 36.6; O2SAT 90–98; BMI 29.4
--- NOTE | 2023-11-24 07:14 | IR_ITS ---
APPROVED REPORT Patient Location: Outpatient Multiple [facility] Operator: AMY Hines RT (R) PROCEDURES Left heart catheterization Left ventriculogram Selective coronary angiogram Drug-eluting stent deployment to the first obtuse marginal artery INDICATION Coronary artery disease, Abnormal Myoview, Informed consent was obtained prior to the procedure. COMPLICATIONS NONE Estimated Blood Loss: LESS THAN 10 ML TECHNIQUE One percent lidocaine used to anesthetize the right anterior aspect of the wrist. The right radial artery was accessed via the Seldinger technique. A 6 Croatian sheath was placed in the right radial artery. 2.5 mg of Verapamil, 800 mcg of nitroglycerin, 1mg Lidocaine and 5000 U Heparin were given through the arterial sheath. The papa catheter was also used to perform left heart catheterization, left ventriculogram and selective coronary angiogram. At the end the diagnostic angiogram therapeutic Was administered giving a therapeutic ACT and the guide catheter was placed in left main artery followed by Choice PT extra-support wire down the first obtuse marginal artery. A 3.5 x 22 mm Forrest[place] frontier stent was deployed at 12 jarett reducing the stenosis. A 3.5 x 8 mm noncompliant balloon was then advanced to the mid and distal portion of the stent deployed at 17 jarett to post dilate. Excellent angiographic results were obtained with BRIONNA-3 flow being present before and after the procedure. At the end the procedure the apparatus was removed the sheath was removed and hemostasis achieved using TR banding patient was transferred to the postop putting in stable addition ANGIOGRAPHIC RESULTS The left main artery Normal The left anterior descending artery Has proximal and mid vessel 20% stenosis The circumflex artery Large dominant with a 70 to 80% concentric stenosis and a large 3.5 mm first obtuse marginal artery large ramus intermedius has an ostial 40% followed by a proximal 50 to 60% stenosis The right coronary artery Nondominant widely patent with mild 10 to 20% stenosis The CURTIS ventriculogram reveals Normal 65% The left ventricular end-diastolic pressure 20 to 25 mmHg IMPRESSION Moderate to severe disease in the large ramus intermedius which is best managed medically Severe stenosis in a large first obtuse marginal artery which was successfully stented with 1 drug-eluting stent reducing severe stenosis to 0% Mild disease in the proximal to mid LAD Normal ejection fraction Elevated LVEDP PLAN 1. Effient 10 mg daily plus aspirin 81 mg daily 2. Treatment of diastolic dysfunction 3. Avoidance of tobacco products 4. Risk factor modification 5. Cardiac rehabilitation 6. Recommend medical management for the ramus intermedius at this time 7. Recommend sleep study Electronically signed by : Thiago Chopra MD 11/24/2023 12:28:18
[2023-11-24 09:36] LABS: Basophils # 0.1 K/mm3 (0-0.2); Basophils % 0.9 % (0.1-2.0); Eosinophils # 0.1 K/mm3 (0.0-0.4); Eosinophils % 1.1 % (0.1-12.0); Hematocrit 49.9 % (42.0-52.0); Hemoglobin 16.9 g/dL (14.1-18.0); Lymphocytes # 1.9 K/mm3 (0.7-4.5); Lymphocytes % 21.2 % (10-50); Mean Corpuscular HGB Conc 33.9 g/dL (31.8-35.4); Mean Corpuscular Hemoglobin 31.1 pg (27.0-31.2); Mean Corpuscular Volume 91.6 fl (80-94); Mean Platelet Volume 8.4 fl (7.4-10.4); Monocytes # 0.5 K/mm3 (0.1-1.0); Monocytes % 5.7 % (1.7-9.3); Neutrophils # 6.5 K/mm3 (1.8-7.8); Neutrophils % 71.1 % (37.0-80.0); Platelet Count 178 K/mm3 (142-424); Red Blood Count 5.45 M/mm3 (4.60-6.20); Red Cell Distribution Width 14.1 % (11.5-17.5); White Blood Count 9.1 K/mm3 (4.8-10.8)
[2023-11-24 09:48] LABS: Anion Gap 12.4 mEq/L (5-15); Blood Urea Nitrogen 17 mg/dl (9-20); Carbon Dioxide 26 mmol/L (22.0-30.0); Chloride 106 mmol/L (98-107); Creatinine Clearance Estimated 104 mL/min (50-200); Estimated Glomerular Filt Rate 97 ml/min (>60); GFR (African American) 117 ML/MIN (>60); Glucose 123 mg/dl (74-100); Potassium 4.4 mmoL/L (3.5-5.1); Sodium 140 mmol/L (136-145)
[2023-11-24] MEDS: diphenhydrAMINE 50MG/ML VIAL 50 MG IV (11:54)
[2023-11-24] MEDS: VERAPAMIL 2.5MG/ML 2ML VIAL 2.5 MG IV (11:54)
[2023-11-24] MEDS: LIDOCAINE 1% 10ML MDV 20 ML IJ (11:55)
[2023-11-24] MEDS: HEPARIN 1,000 UNITS/500ML NS (CATH LAB) 3000 UNIT IV (11:55)
[2023-11-24] MEDS: HEPARIN 1,000 UNITS/ML 10ML VIAL (CATH LAB) 10000 UNIT IV (11:55)
[2023-11-24] MEDS: 0.9 % SODIUM CHLORIDE 500 ML 25 ML IV (11:55)
[2023-11-24] MEDS: NITROGLYCERIN 800MCG/8ML SYR (CATH LAB) 800 MCG IA (11:55)
[2023-11-24] MEDS: FENTANYL 100MCG/2ML VIAL 50 MCG IV (11:56)
[2023-11-24] MEDS: MIDAZOLAM HCL 1MG/1ML 5ML VIAL 1 MG IV (11:56)
[2023-11-24] MEDS: IOPAMIDOL-370 (76%);100ML BOTTLE 120 ML IV (13:38)
[2023-11-24 15:19] LABS: CATHL Activated Clotting Time 346 SEC (74-125)
== END 2023-11-24 14:58 | disposition home or self-care (01) ==
PROVIDERS: PCP Family Medicine; Visit Provider Internal Medicine
DX: R06.00 Dyspnea, unspecified (principal); I25.10 Atherosclerotic heart disease of native coronary artery without angina pectoris; I25.84 Coronary atherosclerosis due to calcified coronary lesion; R93.1 Abnormal findings on diagnostic imaging of heart and coronary circulation; J44.9 Chronic obstructive pulmonary disease, unspecified; Z79.899 Other long term (current) drug therapy; Z87.891 Personal history of nicotine dependence; M17.12 Unilateral primary osteoarthritis, left knee
CPT/HCPCS: 80048; 85025; 85347; 92928; 93458; 99152; C1725; C1760; C1769; C1874; C9600; J1644; Q9967

== ENCOUNTER 2023-11-26 11:02 | Outpatient (CLI) | payer MEDICARE, BC, SELFPAY ==
[2023-11-26 11:18] LABS: Basophils # 0.1 K/mm3 (0-0.2); Basophils % 1.2 % (0.1-2.0); Eosinophils # 0.1 K/mm3 (0.0-0.4); Eosinophils % 1.4 % (0.1-12.0); Hematocrit 50.4 % (42.0-52.0); Hemoglobin 16.7 g/dL (14.1-18.0); Lymphocytes % 34.8 % (10-50); Mean Corpuscular HGB Conc 33.1 g/dL (31.8-35.4); Mean Corpuscular Hemoglobin 30.9 pg (27.0-31.2); Mean Corpuscular Volume 93.3 fl (80-94); Monocytes # 0.7 K/mm3 (0.1-1.0); Neutrophils # 4.7 K/mm3 (1.8-7.8); Neutrophils % 54.6 % (37.0-80.0); Platelet Count 177 K/mm3 (142-424); Red Cell Distribution Width 13.6 % (11.5-17.5); White Blood Count 8.7 K/mm3 (4.8-10.8)
[2023-11-26 11:58] LABS: Anion Gap 14.4 mEq/L (5-15); Blood Urea Nitrogen 18 mg/dl (9-20); Calcium 9.5 mg/dl (8.4-10.2); Carbon Dioxide 26 mmol/L (22.0-30.0); Chloride 105 mmol/L (98-107); Estimated Glomerular Filt Rate 84 ml/min (>60); GFR (African American) 102 ML/MIN (>60); Glucose 95 mg/dl (74-100); Potassium 4.4 mmoL/L (3.5-5.1); Sodium 141 mmol/L (136-145)
== END 2023-11-26 23:59 | disposition home or self-care (01) ==
LOC: LAB 11:03
PROVIDERS: PCP Family Medicine; Visit Provider Internal Medicine
DX: I25.10 Atherosclerotic heart disease of native coronary artery without angina pectoris (principal)
CPT/HCPCS: 36415; 80048; 85025

== ENCOUNTER 2023-12-14 10:37 | Outpatient (CLI) | payer MEDICARE, BC, SELFPAY ==
[2023-12-14 11:59] LABS: Anion Gap 13.6 mEq/L (5-15); Blood Urea Nitrogen 18 mg/dl (9-20); Calcium 9.3 mg/dl (8.4-10.2); Carbon Dioxide 29 mmol/L (22.0-30.0); Chloride 101 mmol/L (98-107); Estimated Glomerular Filt Rate 75 ml/min (>60); GFR (African American) 90 ML/MIN (>60); Glucose 84 mg/dl (74-100); Potassium 4.6 mmoL/L (3.5-5.1); Sodium 139 mmol/L (136-145)
== END 2023-12-14 23:59 | disposition home or self-care (01) ==
LOC: LAB 10:38
PROVIDERS: PCP Family Medicine; Visit Provider Nurse Practitioner Family
DX: I10 Essential (primary) hypertension (principal); E78.5 Hyperlipidemia, unspecified; R93.1 Abnormal findings on diagnostic imaging of heart and coronary circulation; Z87.891 Personal history of nicotine dependence
CPT/HCPCS: 36415; 80048

== ENCOUNTER 2023-12-22 07:50 | Outpatient (CLI) | payer MEDICARE, BC, SELFPAY ==
[2023-12-22] MEDS: ALBUTEROL 0.083% 2.5 MG/3 ML NEB IH (08:16)
== END 2023-12-22 23:59 | disposition home or self-care (01) ==
LOC: RT 07:51
PROVIDERS: PCP Family Medicine; Visit Provider Internal Medicine Pulmonary Disease
DX: R06.02 Shortness of breath (principal); Z87.891 Personal history of nicotine dependence; J44.9 Chronic obstructive pulmonary disease, unspecified
CPT/HCPCS: 94060; 94618; J7613

== ENCOUNTER 2024-01-11 07:56 | Outpatient (CLI) | payer MEDICARE, BC, SELFPAY ==
[2024-01-11 08:40] LABS: Chloride 105 mmol/L (98-107); Sodium 139 mmol/L (136-145)
[2024-01-11 08:41] LABS: Potassium 4.3 mmoL/L (3.5-5.1)
[2024-01-11 08:43] LABS: Blood Urea Nitrogen 21 mg/dl (9-20); Estimated Glomerular Filt Rate 75 ml/min (>60); GFR (African American) 90 ML/MIN (>60)
[2024-01-11 08:44] LABS: Anion Gap 8.3 mEq/L (5-15); Calcium 9.5 mg/dl (8.4-10.2); Carbon Dioxide 30 mmol/L (22.0-30.0); Glucose 130 mg/dl (74-100)
== END 2024-01-11 23:59 | disposition home or self-care (01) ==
LOC: LAB 07:57
PROVIDERS: PCP Family Medicine; Visit Provider Nurse Practitioner Family
DX: I10 Essential (primary) hypertension (principal); E78.2 Mixed hyperlipidemia; Z87.891 Personal history of nicotine dependence
CPT/HCPCS: 36415; 80048

== ENCOUNTER 2024-04-04 13:12 | Outpatient (CLI) | payer MEDICARE, BC, SELFPAY ==
--- NOTE | 2024-04-04 13:18 | XR_ITS ---
FINAL REPORT CLINICAL HISTORY: c/o LBP FINDINGS: LUMBAR SPINE Three views demonstrate no acute fracture. There is moderate disc space narrowing at L3-4, L4-5, and L5-S1 with vacuum phenomenon at L5-S1. There is no malalignment. IMPRESSION: Moderately advanced changes of degenerative disc disease as above. Reviewed, Interpreted and Dictated by Romeo Cruz MD Transcribed by Urszula Garcia Authenticated and [facility]
--- NOTE | 2024-04-04 13:18 | XR_ITS ---
FINAL REPORT CLINICAL HISTORY: PAIN, left hip FINDINGS: Left hip Three views were obtained. There is no acute fracture or dislocation. The joint spaces appear normal. No soft tissue abnormality is identified. IMPRESSION: No acute process. Reviewed, Interpreted and Dictated by Romeo Cruz MD Transcribed by Urszula Garcia Authenticated and [facility]
== END 2024-04-04 23:59 | disposition home or self-care (01) ==
LOC: RAD 13:14
PROVIDERS: PCP Family Medicine; Visit Provider Family Medicine
DX: M54.50 Low back pain, unspecified (principal); M25.552 Pain in left hip
CPT/HCPCS: 72100; 73502

== ENCOUNTER 2024-05-16 10:12 | Outpatient (CLI) | payer MEDICARE, BC, SELFPAY ==
[2024-05-16 11:08] LABS: Chol/HDL Ratio 3.6 (1-3.5); Cholesterol 132 mg/dl (140-200); HDL Cholesterol 37 mg/dl (40-60); Triglycerides 166 mg/dl (30-150); VLDL Cholesterol 33 mg/dL (0-40)
[2024-05-16 11:19] LABS: Direct LDL Cholesterol 66.39 mg/dL (100-129)
== END 2024-05-16 23:59 | disposition home or self-care (01) ==
LOC: LAB 10:13
PROVIDERS: PCP Family Medicine; Visit Provider Family Medicine
DX: I25.10 Atherosclerotic heart disease of native coronary artery without angina pectoris (principal)
CPT/HCPCS: 36415; 80061

== ENCOUNTER 2024-05-25 12:04 | Outpatient (CLI) | payer MEDICARE, BC, SELFPAY ==
[2024-05-25 12:44] LABS: Basophils # 0.1 K/mm3 (0-0.2); Eosinophils # 0.2 K/mm3 (0.0-0.4); Eosinophils % 1.7 % (0.1-12.0); Hematocrit 48.2 % (42.0-52.0); Hemoglobin 17.1 g/dL (14.1-18.0); Lymphocytes # 3.1 K/mm3 (0.7-4.5); Lymphocytes % 33.7 % (10-50); Mean Corpuscular HGB Conc 35.4 g/dL (31.8-35.4); Mean Corpuscular Hemoglobin 32.2 pg (27.0-31.2); Mean Platelet Volume 8.6 fl (7.4-10.4); Monocytes # 0.7 K/mm3 (0.1-1.0); Monocytes % 7.9 % (1.7-9.3); Neutrophils % 55.6 % (37.0-80.0); Platelet Count 178 K/mm3 (142-424); Red Cell Distribution Width 13.3 % (11.5-17.5); White Blood Count 9.1 K/mm3 (4.8-10.8)
[2024-05-25 13:17] LABS: Albumin Level 4.4 g/dl (3.5-5.0); Chloride 105 mmol/L (98-107); Potassium 4.4 mmoL/L (3.5-5.1); Sodium 140 mmol/L (136-145)
[2024-05-25 13:20] LABS: Alanine Aminotransferase 32 U/L (12-78); Albumin/Globulin Ratio 1.6 (1.1-1.8); Alkaline Phosphatase 81 U/L (38-126); Anion Gap 10.4 mEq/L (5-15); Aspartate Amino Transferase 35 U/L (17-59); Bilirubin,Total 1.3 mg/dl (0.2-1.3); Blood Urea Nitrogen 15 mg/dl (9-20); Carbon Dioxide 29 mmol/L (22.0-30.0); Estimated Glomerular Filt Rate 75 ml/min (>60); GFR (African American) 90 ML/MIN (>60); Globulin 2.7 g/dL (1.3-3.2); Total Protein,Serum 7.1 g/dl (6.3-8.2)
[2024-05-25 13:21] LABS: Calcium 9.1 mg/dl (8.4-10.2); Glucose 97 mg/dl (74-100)
== END 2024-05-25 23:59 | disposition home or self-care (01) ==
LOC: LAB 12:06
PROVIDERS: PCP Family Medicine; Visit Provider Nurse Practitioner Family
DX: Z79.899 Other long term (current) drug therapy (principal)
CPT/HCPCS: 36415; 80053; 85025

== ENCOUNTER 2024-06-05 12:59 | Outpatient (POV) | payer MEDICARE, BC, SELFPAY ==
--- NOTE | 2024-06-05 13:17 | EXP.PAIN.OV ---
HPI Data of Consult Patient: new to practice Consult date: 06/05/24 Requesting Physician: Toshia Henning APRN Primary Care Provider: Fredy Delaney MD Consult Narrative Reason for consult: Low back pain, left hip pain History of present illness: Mr. Garrett is a 69 year old male who presents today as a new patient. He is a referral from Dr. Delaney's office. Today he rates his pain an 8 out of 10. Patient states he has chronic pain throughout his low back however only along the left side going towards his left hip. Patient states this been going on for at least 2 years if not longer unrelated to any specific trauma or injury. He does believe a lot of it is more wear and tear and arthritis. Patient does describe it as a aching, throbbing sensation that is worse with increased standing or walking. He does state it is better when he sits. He has tried Tylenol and ibuprofen along with heat and ice and topicals with minimal relief. Patient states he did go to the chiropractor years ago and is currently in physical therapy and has been the last 2 months. Patient states that the physical therapy has not made any improvement and he still continues to have this chronic pain. Patient denies any prior back surgery or injection history. He is interested in any help we may be able to provide.He is currently managed with alprazolam from his PCP. His Apollo has been reviewed and is appropriate. CC: Toshia Henning APRN [facility] Disclaimer: The information contained in this section may have been updated after the patient was seen, as this information can be updated by other users. Medical History Edema HLD (hyperlipidemia) HTN (hypertension) Coronary artery disease Abnormal findings on diagnostic imaging of heart and coronary circulation Dyspnea Coronary artery calcification Sleep apnea Nocturnal hypoxia Screening for lung cancer COPD (chronic obstructive pulmonary disease) Pulmonary emphysema Multiple pulmonary nodules Stopped smoking with greater than 30 pack year history Dyspnea on exertion History of umbilical hernia History of COPD Surgical History Hx of cardiac cath History of umbilical hernia repair History of colonoscopy History of tonsillectomy and adenoidectomy History of excision of pilonidal cyst History of left knee replacement Family History Other Family history of breast cancer Family history of hypertension Social History Smoking Status: Former smoker tobacco type: cigarettes packs per day: 2 alcohol intake: never substance use type: denies use current occupational status: retired household members: spouse housing: house caffeine: No Review of Systems Review of Systems Review of systems:: pertinent systems reviewed and negative unless documented below Review of systems (narrative): Review of Systems: General: No recent weight changes, no fever, no sleep disturbances Respiratory: No cough, no shortness of air, no recurring pulmonary infections Cardiovascular/peripheral vascular: No chest pain, no palpitations, no edema, no shortness of breath Gastrointestinal: No new onset incontinence, normal bowel movements reported Genitourinary: No new onset incontinence Musculoskeletal: Low back pain, left hip pain Psychiatric: [Normal mood/affect] Neurological: [Denies weakness in extremities], [denies balance issues] Meds Home Medications and Allergies Home Medications ?Medication ?Instructions ?Recorded ?Confirmed ?Type alprazolam 0.5 mg tablet 0.5 mg PO TIDP PRN Anxiety 07/18/20 02/07/24 History atorvastatin 20 mg tablet 20 mg PO HS Cholesterol 07/18/20 02/07/24 History escitalopram oxalate 20 mg tablet 20 mg PO DAILY Depression 07/18/20 02/07/24 History albuterol sulfate 90 mcg/actuation 1 inh inhalation Q6H PRN shortness 11/25/22 02/07/24 Rx aerosol inhaler of breath or wheezing 90 days #8.5 grams aspirin 81 mg tablet,delayed 81 mg PO DAILY 10/18/23 02/07/24 History release (Adult Aspirin Regimen) adalimumab 40 mg/0.4 mL 40 mg SQ Q2W 12/07/23 02/07/24 History subcutaneous pen kit (Humira(CF) Pen) bisoprolol fumarate 5 mg tablet 5 mg PO DAILY #90 tabs 12/07/23 02/07/24 Rx prasugrel 10 mg tablet (Effient) 10 mg PO DAILY #90 tabs 12/07/23 02/07/24 Rx spironolactone 25 mg tablet 25 mg PO DAILY #90 tabs 12/07/23 02/07/24 Rx (Aldactone) bumetanide 1 mg tablet 2 mg (2 x 1 mg) PO DAILY #180 tabs 01/04/24 02/07/24 Rx umeclidinium 62.5 mcg-vilanterol 1 inh inhalation DAILY 90 days 02/22/24 Rx 25 mcg/actuation powdr for #180 ea inhalation (Anoro Ellipta) New Prescriptions to Start Prescriptions: Allergies Allergy/AdvReac Type Severity Reaction Status Date / Time No Known Allergies Allergy Verified 02/07/24 10:00 Objective Narrative: Physical Exam: General: Alert and oriented x3, no acute distress, pleasant and cooperative Lungs: Respirations even and unlabored, symmetrical chest expansion Eyes: PERRL Musculoskeletal: Flexion and extension of lumbar [spine] somewhat guarded secondary to pain, [antalgic gait noted] positive left leg raise Neurological: Speech clear, no gross sensory deficit Additional findings Additional findings: FINDINGS: LUMBAR SPINE Three views demonstrate no acute fracture. There is moderate disc space narrowing at L3-4, L4-5, and L5-S1 with vacuum phenomenon at L5-S1. There is no malalignment. IMPRESSION: Moderately advanced changes of degenerative disc disease as above. Reviewed, Interpreted and Dictated by Romeo Cruz MD Transcribed by Urszula Garcia Authenticated and [facility] Assessment and Plan *Assessment and plan (1) Degenerative disc disease, lumbar: Status: Acute Category: Medical Code(s): M51.369 - Other intervertebral disc degeneration, lumbar region without mention of lumbar back pain or lower extremity pain (2) Left hip pain: Status: Acute Category: Medical Code(s): M25.552 - Pain in left hip Plan Patient is experiencing significant pain throughout his low back along the left side. Patient did have limited range of motion and a positive left leg raise during today's visit. I did discuss with the patient that I will order MRI without contrast of his lumbar spine. Patient will also be ordered a compounded cream and return to clinic in 1 month for reevaluation of symptoms and plan of care. Patient has been instructed to contact the clinic with any concerns before the next appointment. Dr. Valle has reviewed this note and agrees with this plan of care. This note was dictated using voice recognition software and make contain errors or omissions. All injections are used with Lidocaine or Bupivacaine and Depo Medrol.
[2024-06-05 13:27] VITALS: BP 136/70; PULSE 63; RESP 18; O2SAT 92; BMI 42.2
== END 2024-06-05 23:59 | disposition home or self-care (01) ==
LOC: SC.PAIN 13:00
PROVIDERS: PCP Family Medicine; Visit Provider Nurse Practitioner Family
DX: M51.369 Other intervertebral disc degeneration, lumbar region without mention of lumbar back pain or lower extremity pain (principal); M25.552 Pain in left hip; Z96.652 Presence of left artificial knee joint; Z87.891 Personal history of nicotine dependence
CPT/HCPCS: 99202; G0463

== ENCOUNTER 2024-06-29 09:00 | Outpatient (RCR) | payer MEDICARE, BC, SELFPAY | END 2024-06-29 23:59 | disposition home or self-care (01) | LOC: PT 09:00 | PROVIDERS: Visit Provider Family Medicine | DX: M25.552 Pain in left hip (principal); M54.50 Low back pain, unspecified | CPT/HCPCS: 97010; 97012; 97014; 97110; 97163; 97164; 97530; G0283 ==

== ENCOUNTER 2024-07-06 13:31 | Outpatient (POV) | payer MEDICARE, BC, SELFPAY ==
[2024-07-06 14:10] VITALS: BP 121/73; PULSE 67; RESP 16; O2SAT 92; BMI 42.7
--- NOTE | 2024-07-06 14:28 | A.OFFVIS_ITS ---
[facility] Disclaimer: The information contained in this section may have been updated after the patient was seen, as this information can be updated by other users. Medical History Edema HLD (hyperlipidemia) HTN (hypertension) Coronary artery disease Abnormal findings on diagnostic imaging of heart and coronary circulation Dyspnea Coronary artery calcification Sleep apnea Nocturnal hypoxia Screening for lung cancer COPD (chronic obstructive pulmonary disease) Pulmonary emphysema Multiple pulmonary nodules Stopped smoking with greater than 30 pack year history Dyspnea on exertion History of umbilical hernia History of COPD Surgical History Hx of cardiac cath History of umbilical hernia repair History of colonoscopy History of tonsillectomy and adenoidectomy History of excision of pilonidal cyst History of left knee replacement Family History Other Family history of breast cancer Family history of hypertension Social History Smoking Status: Former smoker tobacco type: cigarettes packs per day: 2 alcohol intake: never substance use type: denies use current occupational status: other Travel in the last 8 weeks: None household members: spouse housing: house caffeine: No PM Subjective & Objective Subjective Subjective:: Patient is a pleasant 69-year-old male who presents today for follow-up. Today he rates his pain a 0 out of 10 while seated however the pain goes to an 8 out of 10 when he is up walking. He states the pain is constant when he is in a standing position. He describes it as an aching, throbbing sensation that runs down both his legs. Patient states the pain does interfere with his ability to perform activities of daily living such as cooking and cleaning. At our last visit we were waiting to get a MRI however he states he has not heard anything on this. Patient has tried oral medications along with heat and ice and topicals including the compounded cream with minimal relief. He states the compounded cream caused itching and they did stop this. He is now using a hemp Fawnskin cream with some improvement. Patient has continued physical therapy and states that it will help temporarily however as soon as he stops and gets at home the pain is right back. Patient has continued at home stretching exercise that was physician guided. Patient does have a history of heart stents and sees Dr. Chopra. His Apollo has been reviewed and is appropriate. Review of Systems: General: No recent weight changes, no fever, no sleep disturbances Respiratory: No cough, no shortness of air, no recurring pulmonary infections Cardiovascular/peripheral vascular: No chest pain, no palpitations, no edema, no shortness of breath Gastrointestinal: No new onset incontinence, normal bowel movements reported Genitourinary: No new onset incontinence Musculoskeletal: Low back pain, bilateral leg pain Psychiatric: [Normal mood/affect] Neurological: [Denies weakness in extremities], [denies balance issues] Pain at rest (0-10 scale): 8 Objective Objective:: Physical Exam: General: Alert and oriented x3, no acute distress, pleasant and cooperative Lungs: Respirations even and unlabored, symmetrical chest expansion Eyes: PERRL Musculoskeletal: Flexion and extension of lumbar [spine] somewhat guarded secondary to pain, [antalgic gait noted] positive leg raise Neurological: Speech clear, no gross sensory deficit Has patient had previous pain injection?: No Conservative treatment options previously tried: Home exercise plan Length of treatment: Longer than 12 weeks and Physical Therapy Length of treatment: Ongoing Meds Home Medications and Allergies Home Medications ?Medication ?Instructions ?Recorded ?Confirmed ?Type alprazolam 0.5 mg tablet 0.5 mg PO TIDP PRN Anxiety 07/18/20 07/06/24 History atorvastatin 20 mg tablet 20 mg PO HS Cholesterol 07/18/20 07/06/24 History escitalopram oxalate 20 mg tablet 20 mg PO DAILY Depression 07/18/20 07/06/24 History albuterol sulfate 90 mcg/actuation 1 inh inhalation Q6H PRN shortness 11/25/22 07/06/24 Rx aerosol inhaler of breath or wheezing 90 days #8.5 grams aspirin 81 mg tablet,delayed 81 mg PO DAILY 10/18/23 07/06/24 History release (Adult Aspirin Regimen) adalimumab 40 mg/0.4 mL 40 mg SQ Q2W 12/07/23 07/06/24 History subcutaneous pen kit (Humira(CF) Pen) bisoprolol fumarate 5 mg tablet 5 mg PO DAILY #90 tabs 12/07/23 07/06/24 Rx prasugrel 10 mg tablet (Effient) 10 mg PO DAILY #90 tabs 12/07/23 07/06/24 Rx spironolactone 25 mg tablet 25 mg PO DAILY #90 tabs 12/07/23 07/06/24 Rx (Aldactone) bumetanide 1 mg tablet 2 mg (2 x 1 mg) PO DAILY #180 tabs 01/04/24 07/06/24 Rx umeclidinium 62.5 mcg-vilanterol 1 inh inhalation DAILY 90 days 02/22/24 07/06/24 Rx 25 mcg/actuation powdr for #180 ea inhalation (Anoro Ellipta) New Prescriptions to Start Prescriptions: Allergies Allergy/AdvReac Type Severity Reaction Status Date / Time No Known Allergies Allergy Verified 02/07/24 10:00 Assessment and Plan *Assessment and plan (1) Degenerative disc disease, lumbar: Status: Acute Category: Medical Code(s): M51.369 - Other intervertebral disc degeneration, lumbar region without mention of lumbar back pain or lower extremity pain (2) Left hip pain: Status: Acute Category: Medical Code(s): M25.552 - Pain in left hip (3) Lumbar radiculopathy: Status: Acute Category: Medical Code(s): M54.16 - Radiculopathy, lumbar region Plan Patient is experiencing symptoms consistent with spinal stenosis with neurogenic claudication symptoms. Patient did have limited range of motion of his lumbar spine with positive leg raise. I did discuss with the patient that I do believe he would benefit from a lumbar epidural steroid injection. Risk and benefits were discussed with the patient and he would like to proceed forward with this plan of care. Patient has tried and failed conservative therapy including ongoing physical therapy and continued at home stretching exercise for longer than 12 weeks. Patient did have an x-ray showing moderate degenerative disc disease at L3-L4, L4-L5 and L5-S1. I did discuss with the patient that I will plan to proceed forward with ordering an LESI L4-L5 under fluoroscopy. Patient agrees with this plan of care. We will plan on also ordering MRI in future. Patient will be sent in a 14-day supply of baclofen 10 mg twice daily. Patient is on Effient blood thinner and I have counseled him that he will have to stop this medication prior to this injection. We will reach out to Dr. Chopra's office to confirm he can stop this medication prior to this injection. Patient agrees with this plan of care. Patient has been instructed to contact the clinic with any concerns before the next appointment. Dr. Valle has reviewed this note and agrees with this plan of care. This note was dictated using voice recognition software and make contain errors or omissions. All injections are used with Lidocaine, Bupivacaine and Depo Medrol. Occasionally urine drug screen is needed to verify patient's compliance with our office pain contract. This is ordered based off specific treatments related to chronic pain with the potential to abuse certain medications.
== END 2024-07-06 23:59 | disposition home or self-care (01) ==
PROVIDERS: PCP Family Medicine; Visit Provider Nurse Practitioner Family
DX: M51.16 Intervertebral disc disorders with radiculopathy, lumbar region (principal); M25.552 Pain in left hip; Z87.891 Personal history of nicotine dependence; Z73.89 Other problems related to life management difficulty; Z79.02 Long term (current) use of antithrombotics/antiplatelets
CPT/HCPCS: 99212; G0463

== ENCOUNTER 2024-07-20 09:00 | Outpatient (RCR) | payer MEDICARE, BC, SELFPAY | END 2024-07-20 23:59 | disposition home or self-care (01) | LOC: PT 09:00 | PROVIDERS: Visit Provider Family Medicine | DX: M25.552 Pain in left hip (principal); M54.50 Low back pain, unspecified | CPT/HCPCS: 97014; 97110; G0283 ==

== ENCOUNTER 2024-08-01 08:18 | Day surgery (SDC) | payer MEDICARE, BC, SELFPAY ==
[2024-08-01 08:45] VITALS: BP 135/66; PULSE 57; RESP 16; TEMP 36.8; O2SAT 92; BMI 41.4
--- NOTE | 2024-08-01 09:28 | EXP.PAIN.PRO ---
Procedure Date: 08/01/24 Time: 09:20 Anesthesiologist:: Dequan Cramer CRNA Complications:: None Pre-procedure Diagnosis:: Degenerative disc lumbar spine multilevels. Lumbar radiculopathy. Lumbar spondylosis. Multilevel lumbar facet arthropathy. Post-procedure Diagnosis:: Same. Indications for Procedure:: Patient is a very pleasant six 9-year-old male who comes our clinic today for lumbar epidural steroid injection at the L4-5 level. Patient describes low lumbar back pain as well as bilateral hip and leg radicular symptoms at times. He is having difficulty with lumbar flexion, extension, left and right rotation. Patient describes difficulty standing and/or ambulating for any length of time. He rates his pain 7/10. Procedure Details:: Procedure: Lumbar epidural steroid injection under fluoroscopy Informed consent was obtained and the risks and benefits of the procedure were explained to the patient. The patient was taken to the procedure room and noninvasive monitors placed, including noninvasive blood pressure cuff and pulse oximeter. The back was viewed using C-arm Fluoroscopy and prepped using Chloraprep as a cleansing solution and the L4-L5 interspace was palpated. Skin and subcutaneous tissues were anesthetized using lidocaine 1.5% and a 25-gauge needle. After this, an 18-gauge Touhy epidural needle was placed into the L4-L5 interspace and advanced using fluoroscopic guidance and loss of resistance to air until the epidural space was encountered. After confirmation of needle placement in the epidural space, with dye, a solution containing normal saline, 3 mL and Depo-Medrol 80 mg were incrementally injected into the lumbar epidural space. The patient tolerated the procedure well with no complications. The patient was observed in the Pain Clinic and then discharged home neurologically intact. Plan and Disposition:: Patient was discharged without incident.
[2024-08-01 09:39] VITALS: BP 123/57; PULSE 60; RESP 18; TEMP 36.8; O2SAT 95
[2024-08-01] MEDS: IOPAMIDOL-200 (41%);10ML VIAL 10 ML IV (09:40)
[2024-08-01] MEDS: methylPREDNISolone ACETATE 80MG/ML VIAL 80 MG (10:18)
[2024-08-01 10:35] VITALS: BP 159/76; PULSE 61; RESP 18; O2SAT 94
[2024-08-01 10:46] VITALS: BP 159/76; PULSE 61; RESP 18; O2SAT 94
== END 2024-08-01 09:39 | disposition home or self-care (01) ==
PROVIDERS: PCP Family Medicine; Visit Provider Nurse Anesthetist, Certified Registered
DX: M51.16 Intervertebral disc disorders with radiculopathy, lumbar region (principal); M47.26 Other spondylosis with radiculopathy, lumbar region
CPT/HCPCS: 62323; J1010; Q9966

== ENCOUNTER 2024-08-11 10:00 | Outpatient (RCR) | payer MEDICARE, BC, SELFPAY | END 2024-08-11 23:59 | disposition home or self-care (01) | LOC: PT 10:00 | PROVIDERS: Visit Provider Family Medicine | DX: M25.552 Pain in left hip (principal); M54.50 Low back pain, unspecified | CPT/HCPCS: 97014; 97110; G0283 ==

== ENCOUNTER 2024-08-14 09:05 | Outpatient (POV) | payer MEDICARE, BC, SELFPAY ==
[2024-08-14 09:18] VITALS: BP 121/70; PULSE 63; RESP 14; O2SAT 91; BMI 41.0
--- NOTE | 2024-08-14 09:41 | A.OFFVIS_ITS ---
[facility] Disclaimer: The information contained in this section may have been updated after the patient was seen, as this information can be updated by other users. Medical History Edema HLD (hyperlipidemia) HTN (hypertension) Coronary artery disease Abnormal findings on diagnostic imaging of heart and coronary circulation Dyspnea Coronary artery calcification Sleep apnea Nocturnal hypoxia Screening for lung cancer COPD (chronic obstructive pulmonary disease) Pulmonary emphysema Multiple pulmonary nodules Stopped smoking with greater than 30 pack year history Dyspnea on exertion History of umbilical hernia History of COPD Surgical History Hx of cardiac cath History of umbilical hernia repair History of colonoscopy History of tonsillectomy and adenoidectomy History of excision of pilonidal cyst History of left knee replacement Family History Other Family history of breast cancer Family history of hypertension Social History Smoking Status: Former smoker tobacco type: cigarettes packs per day: 2 alcohol intake: never substance use type: denies use current occupational status: other Travel in the last 8 weeks: None household members: spouse housing: house caffeine: No PM Subjective & Objective Subjective Subjective:: Patient is a pleasant 69-year-old male who presents today for follow-up of lumbar epidural steroid injection L4-L5 on 08/01/2024. Today he rates his pain a 0 out of 10. He does state that he has had at least 75% improvement following this injection and feels like it is still working well. He states he has been able to do more with decreased pain. He does state when he gets up and walks he does still have some pain but it is definitely not as severe or constant as it had been. Patient denies any new falls or injuries. His Apollo has been reviewed and is appropriate. Review of Systems: General: No recent weight changes, no fever, no sleep disturbances Respiratory: No cough, no shortness of air, no recurring pulmonary infections Cardiovascular/peripheral vascular: No chest pain, no palpitations, no edema, no shortness of breath Gastrointestinal: No new onset incontinence, normal bowel movements reported Genitourinary: No new onset incontinence Musculoskeletal: Low back pain Psychiatric: [Normal mood/affect] Neurological: [Denies weakness in extremities], [denies balance issues] Pain at rest (0-10 scale): 0 Objective Objective:: Physical Exam: General: Alert and oriented x3, no acute distress, pleasant and cooperative Lungs: Respirations even and unlabored, symmetrical chest expansion Eyes: PERRL Musculoskeletal: Flexion and extension of lumbar [spine] somewhat guarded secondary to pain, [antalgic gait noted] Neurological: Speech clear, no gross sensory deficit Has patient had previous pain injection?: Yes Percent improvement in pain since last injection: 75% Conservative treatment options previously tried: Home exercise plan Length of treatment: Longer than 12 weeks Meds Home Medications and Allergies Home Medications ?Medication ?Instructions ?Recorded ?Confirmed ?Type alprazolam 0.5 mg tablet 0.5 mg PO TIDP PRN Anxiety 07/18/20 08/14/24 History escitalopram oxalate 20 mg tablet 20 mg PO DAILY Depression 07/18/20 08/14/24 History albuterol sulfate 90 mcg/actuation 1 inh inhalation Q6H PRN shortness 11/25/22 08/14/24 Rx aerosol inhaler of breath or wheezing 90 days #8.5 grams aspirin 81 mg tablet,delayed 81 mg PO DAILY 10/18/23 08/14/24 History release (Adult Aspirin Regimen) adalimumab 40 mg/0.4 mL 40 mg SQ Q2W 12/07/23 08/14/24 History subcutaneous pen kit (Humira(CF) Pen) bisoprolol fumarate 5 mg tablet 5 mg PO DAILY #90 tabs 12/07/23 08/14/24 Rx prasugrel HCl 10 mg tablet 10 mg PO DAILY #90 tabs 12/07/23 08/14/24 Rx (Effient) spironolactone 25 mg tablet 25 mg PO DAILY #90 tabs 12/07/23 08/14/24 Rx (Aldactone) bumetanide 1 mg tablet 2 mg (2 x 1 mg) PO DAILY #180 tabs 01/04/24 08/14/24 Rx umeclidinium 62.5 mcg-vilanterol 1 inh inhalation DAILY 90 days 02/22/24 08/14/24 Rx 25 mcg/actuation powdr for #180 ea inhalation (Anoro Ellipta) atorvastatin 20 mg tablet 40 mg PO HS Cholesterol 02/05/25 02/10/25 History New Prescriptions to Start Prescriptions: Allergies Allergy/AdvReac Type Severity Reaction Status Date / Time No Known Allergies Allergy Verified 08/09/24 10:02 Assessment and Plan *Assessment and plan (1) Lumbar radiculopathy: Status: Acute Category: Medical Code(s): M54.16 - Radiculopathy, lumbar region (2) Degenerative disc disease, lumbar: Status: Acute Category: Medical Code(s): M51.369 - Other intervertebral disc degeneration, lumbar region without mention of lumbar back pain or lower extremity pain Plan Patient has had significant improvement following his epidural and does not require any additional injection therapy at this time. Patient will return to clinic in 6 weeks. Patient has been instructed to contact the clinic with any concerns before the next appointment. Dr. Valle has reviewed this note and agrees with this plan of care. This note was dictated using voice recognition software and make contain errors or omissions. All injections are used with Lidocaine, Bupivacaine and Depo Medrol. Occasionally urine drug screen is needed to verify patient's compliance with our office pain contract. This is ordered based off specific treatments related to chronic pain with the potential to abuse certain medications.
== END 2024-08-14 23:59 | disposition home or self-care (01) ==
LOC: SC.PAIN 09:07
PROVIDERS: PCP Family Medicine; Visit Provider Nurse Practitioner Family
DX: M51.16 Intervertebral disc disorders with radiculopathy, lumbar region (principal); Z87.891 Personal history of nicotine dependence
CPT/HCPCS: 99212; G0463

== ENCOUNTER 2024-08-29 12:41 | Outpatient (CLI) | payer MEDICARE, BC, SELFPAY ==
--- NOTE | 2024-08-29 12:42 | CT_ITS ---
FINAL REPORT TECHNIQUE: Axial images were obtained from the lung apex to the mid abdomen by computed tomography without contrast. Coronal and sagittal reformatted images were obtained. This study was performed with techniques to keep radiation doses as low as reasonably achievable, (ALARA). Individualized dose reduction techniques using automated exposure control or adjustment of mA and/or kV according to the patient's size were employed. CLINICAL HISTORY: 12 months follow-up COMPARISON: 06/08/2023 FINDINGS: CT CHEST WITHOUT CONTRAST There is minimal pleural thickening of the left lung along the major fissure, which is stable. There is a tiny right upper lobe nodule seen on image #25 with surrounding groundglass opacity, which is stable. This is most compatible with post-inflammatory etiology. There is no suspicious pulmonary lesion. No evidence of acute pneumonia. No adenopathy or effusion. Gynecomastia is new from prior exam. The upper abdomen shows a left adrenal nodule measuring up to 24 mm with density characteristics compatible with benign adenoma. IMPRESSION: Stable chronic lung changes without evidence of acute pneumonia or neoplasm. Benign left adrenal adenoma. Reviewed, Interpreted and Dictated by Fam Aquino MD Transcribed by Lu Sehth Authenticated and [facility]
== END 2024-08-29 23:59 | disposition home or self-care (01) ==
LOC: RAD 12:42
PROVIDERS: PCP Family Medicine; Visit Provider Internal Medicine Pulmonary Disease
DX: R91.8 Other nonspecific abnormal finding of lung field (principal)
CPT/HCPCS: 71250

== ENCOUNTER 2024-09-25 09:18 | Outpatient (POV) | payer MEDICARE, BC, SELFPAY ==
--- NOTE | 2024-09-25 09:25 | EXP.PAIN.SOA ---
[facility] Disclaimer: The information contained in this section may have been updated after the patient was seen, as this information can be updated by other users. Medical History Edema HLD (hyperlipidemia) HTN (hypertension) Coronary artery disease Abnormal findings on diagnostic imaging of heart and coronary circulation Dyspnea Coronary artery calcification Sleep apnea Nocturnal hypoxia Screening for lung cancer COPD (chronic obstructive pulmonary disease) Pulmonary emphysema Multiple pulmonary nodules Stopped smoking with greater than 30 pack year history Dyspnea on exertion History of umbilical hernia History of COPD Surgical History Hx of cardiac cath History of umbilical hernia repair History of colonoscopy History of tonsillectomy and adenoidectomy History of excision of pilonidal cyst History of left knee replacement Family History Other Family history of breast cancer Family history of hypertension Social History Smoking Status: Former smoker tobacco type: cigarettes packs per day: 2 alcohol intake: never substance use type: denies use current occupational status: other Travel in the last 8 weeks: None household members: spouse housing: house caffeine: No PM Subjective & Objective Subjective Subjective:: Patient is a pleasant 69-year-old male who presents today for 6-week follow-up. Today he rates his pain a 9 out of 10. Patient did previously have a lumbar epidural steroid injection of L4-L5 back in July that did help. Today he states that the pain is more along his low back and left hip. He states it does seem like it gets worse the longer he is up walking. Patient states that he can typically only stand and walk for about 3 minutes before the pain starts getting much worse. He describes it as a sharp sensation that does start in his low back and radiates to his left hip. He denies any new injuries or trauma. Patient states that he has been trying to be hempvana cream and states it does so so about like the compounded cream from our office. His Apollo has been reviewed. Review of Systems: General: No recent weight changes, no fever, no sleep disturbances Respiratory: No cough, no shortness of air, no recurring pulmonary infections Cardiovascular/peripheral vascular: No chest pain, no palpitations, no edema, no shortness of breath Gastrointestinal: No new onset incontinence, normal bowel movements reported Genitourinary: No new onset incontinence Musculoskeletal: Low back pain Psychiatric: [Normal mood/affect] Neurological: [Denies weakness in extremities], [denies balance issues] Pain at rest (0-10 scale): 9 Objective Objective:: Physical Exam: General: Alert and oriented x3, no acute distress, pleasant and cooperative Lungs: Respirations even and unlabored, symmetrical chest expansion Eyes: PERRL Musculoskeletal: Flexion and extension of lumbar [spine] somewhat guarded secondary to pain, [antalgic gait noted] positive FABERs left-sided Neurological: Speech clear, no gross sensory deficit Has patient had previous pain injection?: No Conservative treatment options previously tried: Home exercise plan Length of treatment: Longer than 12 weeks Meds Home Medications and Allergies Home Medications ?Medication ?Instructions ?Recorded ?Confirmed ?Type alprazolam 0.5 mg tablet 0.5 mg PO TIDP PRN Anxiety 07/18/20 09/25/24 History escitalopram oxalate 20 mg tablet 20 mg PO DAILY Depression 07/18/20 09/25/24 History albuterol sulfate 90 mcg/actuation 1 inh inhalation Q6H PRN shortness 11/25/22 09/25/24 Rx aerosol inhaler of breath or wheezing 90 days #8.5 grams aspirin 81 mg tablet,delayed 81 mg PO DAILY 10/18/23 09/25/24 History release (Adult Aspirin Regimen) adalimumab 40 mg/0.4 mL 40 mg SQ Q2W 12/07/23 09/25/24 History subcutaneous pen kit (Humira(CF) Pen) bisoprolol fumarate 5 mg tablet 5 mg PO DAILY #90 tabs 12/07/23 09/25/24 Rx prasugrel HCl 10 mg tablet 10 mg PO DAILY #90 tabs 12/07/23 09/25/24 Rx (Effient) spironolactone 25 mg tablet 25 mg PO DAILY #90 tabs 12/07/23 09/25/24 Rx (Aldactone) bumetanide 1 mg tablet 2 mg (2 x 1 mg) PO DAILY #180 tabs 01/04/24 09/25/24 Rx umeclidinium 62.5 mcg-vilanterol 1 inh inhalation DAILY 90 days 08/20/24 03/24/25 Rx 25 mcg/actuation powdr for #180 ea inhalation (Anoro Ellipta) atorvastatin 40 mg tablet 40 mg PO DAILY 08/29/24 09/25/24 History New Prescriptions to Start Prescriptions: Allergies Allergy/AdvReac Type Severity Reaction Status Date / Time No Known Allergies Allergy Verified 08/29/24 13:30 Assessment and Plan *Assessment and plan (1) Degenerative disc disease, lumbar: Status: Acute Category: Medical Code(s): M51.369 - Other intervertebral disc degeneration, lumbar region without mention of lumbar back pain or lower extremity pain (2) Lumbar radiculopathy: Status: Acute Category: Medical Code(s): M54.16 - Radiculopathy, lumbar region (3) Left hip pain: Status: Acute Category: Medical Code(s): M25.552 - Pain in left hip (4) Sacroiliitis: Status: Acute Category: Medical Code(s): M46.1 - Sacroiliitis, not elsewhere classified Plan I did discuss with the patient that some of his symptoms are consistent with left-sided sacroiliitis. I did discuss with the patient in future he may benefit from left SI injection however I would like to try a 2-week dose as methocarbamol 500 mg 3 times daily as needed. Patient will return to clinic in 2 weeks. Patient has been instructed to contact the clinic with any concerns before the next appointment. Dr. Valle has reviewed this note and agrees with this plan of care. This note was dictated using voice recognition software and make contain errors or omissions. All injections are used with Lidocaine, Bupivacaine and Depo Medrol. Occasionally urine drug screen is needed to verify patient's compliance with our office pain contract. This is ordered based off specific treatments related to chronic pain with the potential to abuse certain medications.
[2024-09-25 09:44] VITALS: BP 116/64; PULSE 59; RESP 16; O2SAT 93; BMI 41.3
== END 2024-09-25 23:59 | disposition home or self-care (01) ==
PROVIDERS: PCP Family Medicine; Visit Provider Nurse Practitioner Family
DX: M51.16 Intervertebral disc disorders with radiculopathy, lumbar region (principal); M25.552 Pain in left hip; M46.1 Sacroiliitis, not elsewhere classified; Z96.652 Presence of left artificial knee joint; Z87.891 Personal history of nicotine dependence
CPT/HCPCS: 99212; G0463

== ENCOUNTER 2024-10-12 09:00 | Outpatient (POV) | payer MEDICARE, BC, SELFPAY ==
--- NOTE | 2024-10-12 09:29 | A.OFFVIS_ITS ---
[facility] Disclaimer: The information contained in this section may have been updated after the patient was seen, as this information can be updated by other users. Medical History Edema HLD (hyperlipidemia) HTN (hypertension) Coronary artery disease Abnormal findings on diagnostic imaging of heart and coronary circulation Dyspnea Coronary artery calcification Sleep apnea Nocturnal hypoxia Screening for lung cancer COPD (chronic obstructive pulmonary disease) Pulmonary emphysema Multiple pulmonary nodules Stopped smoking with greater than 30 pack year history Dyspnea on exertion History of umbilical hernia History of COPD Surgical History Hx of cardiac cath History of umbilical hernia repair History of colonoscopy History of tonsillectomy and adenoidectomy History of excision of pilonidal cyst History of left knee replacement Family History Other Family history of breast cancer Family history of hypertension Social History Smoking Status: Former smoker tobacco type: cigarettes packs per day: 2 alcohol intake: never substance use type: denies use current occupational status: other Travel in the last 8 weeks: None household members: spouse housing: house caffeine: No PM Subjective & Objective Subjective Subjective:: Patient is a pleasant 69-year-old male who presents today for 1 month follow-up. Today he rates his pain a 0 out of 10 while seated however states the pain goes to an 8 out of 10 with standing and walking. He denies any new falls or injuries. He does state that it is still that same pain he has been experiencing. Patient states it does interfere with the ability to perform activities of daily living such as cooking and cleaning. He states that he has continued conservative treatment with minimal improvement. Patient did previously have a lumbar epidural back in July that did help. Patient is open to additional injections. He has been prescribed compounded cream from our office however found other [id number] medications worked more effectively. He does state that he did do the methocarbamol 500 mg 3 times a day that we sent in and it did help some but not a huge significance. His Apollo has been reviewed and is appropriate. Review of Systems: General: No recent weight changes, no fever, no sleep disturbances Respiratory: No cough, no shortness of air, no recurring pulmonary infections Cardiovascular/peripheral vascular: No chest pain, no palpitations, no edema, no shortness of breath Gastrointestinal: No new onset incontinence, normal bowel movements reported Genitourinary: No new onset incontinence Musculoskeletal: Low back pain, bilateral leg pain Psychiatric: [Normal mood/affect] Neurological: [Denies weakness in extremities], [denies balance issues] Pain at rest (0-10 scale): 8 Objective Objective:: Physical Exam: General: Alert and oriented x3, no acute distress, pleasant and cooperative Lungs: Respirations even and unlabored, symmetrical chest expansion Eyes: PERRL Musculoskeletal: Flexion and extension of lumbar [spine] somewhat guarded secondary to pain, [antalgic gait noted] positive leg raise Neurological: Speech clear, no gross sensory deficit FINDINGS: LUMBAR SPINE Three views demonstrate no acute fracture. There is moderate disc space narrowing at L3-4, L4-5, and L5-S1 with vacuum phenomenon at L5-S1. There is no malalignment. IMPRESSION: Moderately advanced changes of degenerative disc disease as above. Reviewed, Interpreted and Dictated by Romeo Cruz MD Transcribed by Urszula Garcia Authenticated and . [facility] Has patient had previous pain injection?: No Conservative treatment options previously tried: Home exercise plan Length of treatment: Longer than 12 weeks Meds Home Medications and Allergies Home Medications ?Medication ?Instructions ?Recorded ?Confirmed ?Type alprazolam 0.5 mg tablet 0.5 mg PO TIDP PRN Anxiety 07/18/20 09/25/24 History escitalopram oxalate 20 mg tablet 20 mg PO DAILY Depression 07/18/20 09/25/24 History albuterol sulfate 90 mcg/actuation 1 inh inhalation Q6H PRN shortness 11/25/22 09/25/24 Rx aerosol inhaler of breath or wheezing 90 days #8.5 grams aspirin 81 mg tablet,delayed 81 mg PO DAILY 10/18/23 09/25/24 History release (Adult Aspirin Regimen) adalimumab 40 mg/0.4 mL 40 mg SQ Q2W 12/07/23 09/25/24 History subcutaneous pen kit (Humira(CF) Pen) bisoprolol fumarate 5 mg tablet 5 mg PO DAILY #90 tabs 12/07/23 09/25/24 Rx prasugrel HCl 10 mg tablet 10 mg PO DAILY #90 tabs 12/07/23 09/25/24 Rx (Effient) spironolactone 25 mg tablet 25 mg PO DAILY #90 tabs 12/07/23 09/25/24 Rx (Aldactone) bumetanide 1 mg tablet 2 mg (2 x 1 mg) PO DAILY #180 tabs 01/04/24 09/25/24 Rx umeclidinium 62.5 mcg-vilanterol 1 inh inhalation DAILY 90 days 02/22/24 09/25/24 Rx 25 mcg/actuation powdr for #180 ea inhalation (Anoro Ellipta) atorvastatin 40 mg tablet 40 mg PO DAILY 08/29/24 09/25/24 History methocarbamol 500 mg tablet 500 mg PO TID #42 tabs 09/25/24 Rx New Prescriptions to Start Prescriptions: Allergies Allergy/AdvReac Type Severity Reaction Status Date / Time No Known Allergies Allergy Verified 08/29/24 13:30 Assessment and Plan *Assessment and plan (1) Lumbar radiculopathy: Status: Acute Category: Medical Code(s): M54.16 - Radiculopathy, lumbar region (2) Degenerative disc disease, lumbar: Status: Acute Category: Medical Code(s): M51.369 - Other intervertebral disc degeneration, lumbar region without mention of lumbar back pain or lower extremity pain (3) Spinal stenosis, lumbar region with neurogenic claudication: Status: Acute Category: Medical Code(s): M48.062 - Spinal stenosis, lumbar region with neurogenic claudication Plan Patient is experiencing worsening pain in his low back with numbness and tingling into her lower extremities. Patient did have limited range of motion of his lumbar spine with a positive leg raise. I did discuss with patient that I do believe they would benefit from a lumbar epidural steroid injection. Risk and benefits were discussed with patient and the patient would like to proceed forward with this plan of care. Patient is on blood thinners written by Dr. Chopra's office. We will reach out to this provider to confirm he can stop this medication prior to this procedure.. Patient has tried and failed conservative therapy including continued at home stretching exercise for longer than 12 weeks between injections. Patient did previously have a lumbar epidural back in July that provided 75% relief and lasted longer than 2 months. We will schedule the patient for an LESI L4-L5 under fluoroscopy. Patient has had this pain for longer than 6 months. Patient has had significant improvement through injection therapy in the past. I did discuss with the patient that he does have symptoms consistent with spinal stenosis with neurogenic claudication symptoms. Patient has not had any recent advanced MRI imaging to see if there is ligamentum flavum hypertrophy. We will follow-up with him at his next visit regarding possibly ordering advanced MRI imaging. I will also increase the methocarbamol to 750 mg 3 times a day and provide a 1 month supply of this medication. Patient has been instructed to contact the clinic with any concerns before the next appointment. Dr. Valle has reviewed this note and agrees with this plan of care. This note was dictated using voice recognition software and make contain errors or omissions. All injections are used with Lidocaine, Bupivacaine and Depo Medrol. Occasionally urine drug screen is needed to verify patient's compliance with our office pain contract. This is ordered based off specific treatments related to chronic pain with the potential to abuse certain medications.
[2024-10-12 10:09] VITALS: BP 120/74; PULSE 57; RESP 14; O2SAT 93; BMI 41.3
== END 2024-10-12 23:59 | disposition home or self-care (01) ==
PROVIDERS: PCP Family Medicine; Visit Provider Nurse Practitioner Family
DX: M48.062 Spinal stenosis, lumbar region with neurogenic claudication (principal); M51.16 Intervertebral disc disorders with radiculopathy, lumbar region; Z96.652 Presence of left artificial knee joint; Z87.891 Personal history of nicotine dependence; Z73.89 Other problems related to life management difficulty; Z79.02 Long term (current) use of antithrombotics/antiplatelets
CPT/HCPCS: 99212; G0463

== ENCOUNTER 2024-12-08 14:35 | Outpatient (CLI) | payer MEDICARE, BC, SELFPAY ==
--- NOTE | 2024-12-08 14:45 | MR_ITS ---
FINAL REPORT TECHNIQUE: Multiplanar and multisequence imaging of the lumbar spine was obtained without contrast. CLINICAL HISTORY: low back pain, lumbar radiculopathy left sided lower back pain that radiates to hip FINDINGS: There is normal alignment of the lumbar vertebral bodies. Vertebral body height is preserved. The spinal cord ends at the level of L1. There is normal signal intensity within the substance of the distal spinal cord. No acute bone marrow edema or pathologic marrow replacement. There is a left adrenal nodule measuring 27 mm. L1-2: There is no focal disc herniation, central canal stenosis or neuroforaminal narrowing. L2-3: Bilateral facet osteoarthropathy is present. There is no focal disc herniation, central canal stenosis or neuroforaminal narrowing. L3-4: An annular disc bulge is present with degenerative endplate changes and facet osteoarthropathy. Moderate central stenosis and moderate bilateral neuroforaminal narrowing. L4-5: An annular disc bulge is present with degenerative endplate changes and facet osteoarthropathy with a superimposed left paracentral disc protrusion. Severe central stenosis with severe, right greater than left neuroforaminal narrowing. L5-S1: An annular disc bulge is present with degenerative endplate changes and facet osteoarthropathy. Mild to moderate central stenosis. Mild right and moderate to severe left neuroforaminal narrowing. IMPRESSION: Multilevel degenerative disc disease, most pronounced at L4-5 where there is a superimposed left paracentral disc protrusion. Reviewed, Interpreted and Dictated by Dominique Gonzalez MD Transcribed by Urszula Garcia Authenticated and . [facility]
== END 2024-12-08 23:59 | disposition home or self-care (01) ==
LOC: RAD 14:36
PROVIDERS: PCP Family Medicine; Visit Provider Nurse Practitioner Family
DX: M51.16 Intervertebral disc disorders with radiculopathy, lumbar region (principal)
CPT/HCPCS: 72148

== ENCOUNTER 2024-12-21 13:01 | Outpatient (POV) | payer MEDICARE, BC, SELFPAY ==
--- NOTE | 2024-12-21 13:11 | EXP.PAIN.SOA ---
[facility] Disclaimer: The information contained in this section may have been updated after the patient was seen, as this information can be updated by other users. Medical History Edema HLD (hyperlipidemia) HTN (hypertension) Coronary artery disease Abnormal findings on diagnostic imaging of heart and coronary circulation Dyspnea Coronary artery calcification Sleep apnea Nocturnal hypoxia Screening for lung cancer COPD (chronic obstructive pulmonary disease) Pulmonary emphysema Multiple pulmonary nodules Stopped smoking with greater than 30 pack year history Dyspnea on exertion History of umbilical hernia History of COPD Surgical History Hx of cardiac cath History of umbilical hernia repair History of colonoscopy History of tonsillectomy and adenoidectomy History of excision of pilonidal cyst History of left knee replacement Family History Other Family history of breast cancer Family history of hypertension Social History Smoking Status: Former smoker tobacco type: cigarettes packs per day: 2 alcohol intake: never substance use type: denies use current occupational status: other Travel in the last 8 weeks?: None household members: spouse housing: house caffeine: No PM Subjective & Objective Subjective Subjective:: Patient is a pleasant 69-year-old male who presents today for follow-up of MRI. He rates his pain today a 7 out of 10. He denies any new changes from our last appointment. He is still having significant pain in his low back that does radiate down into his legs that is worse with increased activity. Patient does state the pain interferes with his ability perform activities of daily living such as cooking and cleaning. Patient would like to see about additional injections as his last one in July did provide 75% relief and lasted about 3 months or more. Patient is prescribed methocarbamol 750 mg 3 times a day from our office. He denies any side effects. His Apollo has been reviewed and is appropriate. Review of Systems: General: No recent weight changes, no fever, no sleep disturbances Respiratory: No cough, no shortness of air, no recurring pulmonary infections Cardiovascular/peripheral vascular: No chest pain, no palpitations, no edema, no shortness of breath Gastrointestinal: No new onset incontinence, normal bowel movements reported Genitourinary: No new onset incontinence Musculoskeletal: [Low back pain, bilateral leg numbness ting Psychiatric: [Normal mood/affect] Neurological: [Denies weakness in extremities], [denies balance issues] Pain at rest (0-10 scale): 7 Objective Objective:: Physical Exam: General: Alert and oriented x3, no acute distress, pleasant and cooperative Lungs: Respirations even and unlabored, symmetrical chest expansion Eyes: PERRL Musculoskeletal: Flexion and extension of lumbar [spine] somewhat guarded secondary to pain, [antalgic gait noted] positive leg raise Neurological: Speech clear, no gross sensory deficit FINDINGS: There is normal alignment of the lumbar vertebral bodies. Vertebral body height is preserved. The spinal cord ends at the level of L1. There is normal signal intensity within the substance of the distal spinal cord. No acute bone marrow edema or pathologic marrow replacement. There is a left adrenal nodule measuring 27 mm. L1-2: There is no focal disc herniation, central canal stenosis or neuroforaminal narrowing. L2-3: Bilateral facet osteoarthropathy is present. There is no focal disc herniation, central canal stenosis or neuroforaminal narrowing. L3-4: An annular disc bulge is present with degenerative endplate changes and facet osteoarthropathy. Moderate central stenosis and moderate bilateral neuroforaminal narrowing. L4-5: An annular disc bulge is present with degenerative endplate changes and facet osteoarthropathy with a superimposed left paracentral disc protrusion. Severe central stenosis with severe, right greater than left neuroforaminal narrowing. L5-S1: An annular disc bulge is present with degenerative endplate changes and facet osteoarthropathy. Mild to moderate central stenosis. Mild right and moderate to severe left neuroforaminal narrowing. IMPRESSION: Multilevel degenerative disc disease, most pronounced at L4-5 where there is a superimposed left paracentral disc protrusion. Reviewed, Interpreted and Dictated by Dominique Gonzalez MD Transcribed by Urszula Garcia Authenticated and [facility] Has patient had previous pain injection?: No Conservative treatment options previously tried: Home exercise plan Length of treatment: Longer than 12 weeks and Chiropractor Length of treatment: Ongoing Meds Home Medications and Allergies Home Medications ?Medication ?Instructions ?Recorded ?Confirmed ?Type alprazolam 0.5 mg tablet 0.5 mg PO TIDP PRN Anxiety 07/18/20 10/12/24 History escitalopram oxalate 20 mg tablet 20 mg PO DAILY Depression 07/18/20 10/12/24 History albuterol sulfate 90 mcg/actuation 1 inh inhalation Q6H PRN shortness 11/25/22 10/12/24 Rx aerosol inhaler of breath or wheezing 90 days #8.5 grams aspirin 81 mg tablet,delayed 81 mg PO DAILY 10/18/23 10/12/24 History release (Adult Aspirin Regimen) adalimumab 40 mg/0.4 mL 40 mg SQ Q2W 12/07/23 10/12/24 History subcutaneous pen kit (Humira(CF) Pen) umeclidinium 62.5 mcg-vilanterol 1 inh inhalation DAILY 90 days 02/22/24 10/12/24 Rx 25 mcg/actuation powdr for #180 ea inhalation (Anoro Ellipta) atorvastatin 40 mg tablet 40 mg PO DAILY 08/29/24 10/12/24 History methocarbamol 500 mg tablet 500 mg PO TID #42 tabs 09/25/24 10/12/24 Rx methocarbamol 750 mg tablet 750 mg PO TID #90 tabs 10/12/24 Rx bisoprolol fumarate 5 mg tablet 5 mg PO DAILY #90 tabs 11/10/24 Rx spironolactone 25 mg tablet 25 mg PO DAILY #90 tabs 11/10/24 Rx (Aldactone) prasugrel HCl 10 mg tablet 10 mg PO DAILY #90 tabs 11/13/24 Rx (Effient) bumetanide 1 mg tablet 2 mg (2 x 1 mg) PO DAILY #180 tabs 12/14/24 Rx New Prescriptions to Start Prescriptions: Allergies Allergy/AdvReac Type Severity Reaction Status Date / Time No Known Allergies Allergy Verified 08/29/24 13:30 Assessment and Plan *Assessment and plan (1) Lumbar radiculopathy: Status: Acute Category: Medical Code(s): M54.16 - Radiculopathy, lumbar region (2) Spinal stenosis, lumbar region with neurogenic claudication: Status: Acute Category: Medical Code(s): M48.062 - Spinal stenosis, lumbar region with neurogenic claudication (3) Degenerative disc disease, lumbar: Status: Acute Category: Medical Code(s): M51.369 - Other intervertebral disc degeneration, lumbar region without mention of lumbar back pain or lower extremity pain Plan I did review over the patient's advanced imaging that did show significant stenosis most prominent at the L4-L5 level. Patient is experiencing worsening pain in his low back with numbness and tingling into her lower extremities which is consistent with the lumbar stenosis. Patient did have limited range of motion of hips lumbar spine with a positive leg raise. I did discuss with patient that I do believe they would benefit from a repeat lumbar epidural steroid injection. Risk and benefits were discussed with patient and the patient would like to proceed forward with this plan of care. Patient is on blood thinners written by Dr. Chopra's office. We will reach out to this provider and confirm he can stop these medications prior to this injection.. Patient has tried and failed conservative therapy including oral medications, heat and ice, topicals, chiropractor therapy and continued at home stretching exercise for longer than 12 weeks that was physician guided. Patient has had chronic back pain for longer than 6 months. Patient did previously have a lumbar epidural back in July that provided 75% relief and lasted longer than 3 months. We will schedule the patient for an LESI L4-L5 under fluoroscopy. Patient has been instructed to contact the clinic with any concerns before the next appointment. Dr. Valle has reviewed this note and agrees with this plan of care. This note was dictated using voice recognition software and make contain errors or omissions. All injections are used with Lidocaine, Bupivacaine and dexamethasone. Occasionally urine drug screen is needed to verify patient's compliance with our office pain contract. This is ordered based off specific treatments related to chronic pain with the potential to abuse certain medications.
[2024-12-21 13:53] VITALS: BP 122/72; PULSE 58; RESP 14; O2SAT 94; BMI 41.9
== END 2024-12-21 23:59 | disposition home or self-care (01) ==
PROVIDERS: PCP Family Medicine; Visit Provider Nurse Practitioner Family
DX: M48.062 Spinal stenosis, lumbar region with neurogenic claudication (principal); Z79.899 Other long term (current) drug therapy
CPT/HCPCS: 99212; G0463

== ENCOUNTER 2025-01-04 11:11 | Outpatient (CLI) | payer MEDICARE, BC, SELFPAY ==
[2025-01-04 12:13] LABS: Hematocrit 48.6 % (42.0-52.0); Hemoglobin 16.7 g/dL (14.1-18.0); Immature Granulocytes % 0.8 %; Mean Corpuscular HGB Conc 34.4 g/dL (31.8-35.4); Mean Corpuscular Hemoglobin 31.2 pg (27.0-31.2); Mean Corpuscular Volume 90.7 fl (80-94); Nucleated Red Blood Cells % 0 %; Platelet Count 205 K/mm3 (142-424); Red Blood Count 5.36 M/mm3 (4.60-6.20); Red Cell Distribution Width-SD 40.0 fL; White Blood Count 10.1 K/mm3 (4.8-10.8)
[2025-01-04 12:24] LABS: Albumin Level 4.4 g/dl (3.5-5.0); Chloride 99 mmol/L (98-107); Sodium 138 mmol/L (136-145)
[2025-01-04 12:25] LABS: Potassium 4.7 mmoL/L (3.5-5.1)
[2025-01-04 12:27] LABS: Alanine Aminotransferase 24 U/L (12-78); Alkaline Phosphatase 90 U/L (38-126); Anion Gap 14.7 mEq/L (5-15); Aspartate Amino Transferase 30 U/L (17-59); Bilirubin,Direct 0.0 mg/dl (0.0-0.4); Bilirubin,Indirect 1.6 mg/dL (0.0-0.9); Bilirubin,Total 1.6 mg/dl (0.2-1.3); Bilirubin,Unconjugated 1.5 mg/dL (0.0-1.1); Blood Urea Nitrogen 14 mg/dl (9-20); Calcium 9.5 mg/dl (8.4-10.2); Carbon Dioxide 29 mmol/L (22.0-30.0); Cholesterol 137 mg/dl (140-200); Creatinine,Serum 0.90 mg/dl (0.66-1.25); Estimated Glomerular Filt Rate 84 ml/min (>60); GFR (African American) 102 ML/MIN (>60); Glucose 89 mg/dl (74-100); Total Protein,Serum 7.3 g/dl (6.3-8.2); Triglycerides 211 mg/dl (30-150)
[2025-01-04 12:28] LABS: HDL Cholesterol 33 mg/dl (40-60); Magnesium 2.1 mg/dl (1.6-2.3)
[2025-01-04 12:58] LABS: Thyroid Stimulating Hormone 1.51 uIU/mL (0.465-4.68)
[2025-01-04 13:41] LABS: Free T4 (Free Thyroxine) 1.07 ng/dl (0.78-2.19)
== END 2025-01-04 23:59 | disposition home or self-care (01) ==
LOC: LAB 11:13
PROVIDERS: PCP Family Medicine; Visit Provider Physician Assistant
DX: I25.10 Atherosclerotic heart disease of native coronary artery without angina pectoris (principal); I10 Essential (primary) hypertension; R06.09 Other forms of dyspnea
CPT/HCPCS: 36415; 80048; 80061; 80076; 83735; 84439; 84443; 85025; 93270

== ENCOUNTER 2025-01-16 07:56 | Day surgery (SDC) | payer MEDICARE, BC, SELFPAY ==
--- NOTE | 2025-01-16 08:00 | CA_ITS ---
APPROVED REPORT EXAM: Comprehensive 2D, Doppler, and color-flow Echocardiogram Carpet Winder: Puja Rome RT(R) Ht: 6 ft 1 in Wt: 320lbs BSA: 2.63 BP: 141/68 mmHg Indications: shortness of air, dizziness/lightheaded M-Mode Dimensions RVDd 2.77 cm (0.9-2.6) LA Diam 3.30 cm (1.9-4.0) LVDd 5.87 cm (3.5-5.7) LVDs 4.37 cm (3.5-5.7) IVSd 0.89 cm (0.6-1.1) PWd 0.94 cm (0.6-1.1) EF (Teich) 49.60% FS 25.60% EDV (Teich) 171.20 mL ESV (Teich) 86.30 mL LV Diastology E Decel Time 210 (160-240 msec) E/A Ratio 1.0 Mitral Valve MV E Max [place]. 76.0 (40-130 cm/s) MV A Velocity 73.0 (40-130 cm/s) E/A Ratio 1.05 MV PHT 62.0 ms Left Ventricle The left ventricle is normal size. The left ventricular systolic function is normal. The left ventricular ejection fraction is within the normal range. There is increased LV wall thickness. There is normal LV segmental wall motion. Transmitral Doppler flow pattern suggests impaired LV relaxation. LVEF is 55%. Right Ventricle Right ventricle is mildly dilated. The right ventricular systolic function is normal. Atria The left atrium size is normal. The right atrium size is normal. No Doppler evidence of interatrial shunt. Aortic Valve The aortic valve opens well. There is no aortic valvular stenosis. No aortic regurgitation is present. Mitral Valve The mitral valve is normal in structure. No evidence of mitral valve stenosis. There is no mitral valve regurgitation noted. Tricuspid Valve Tricuspid valve is grossly normal in structure and function. Trace tricuspid regurgitation. There is insufficient TR jet to estimate RVSP. Pulmonic Valve Pulmonic valve is grossly normal in structure. Trace pulmonic regurgitation. Great Vessels The aortic root is normal in size. IVC is normal in size and collapses >50% with inspiration. Pericardium There is no pericardial effusion. Other Information Study Quality: Technically Difficult Conclusion Technically difficult study due to poor acoustic windows. Normal biventricular systolic function. Mild RV dilation. No significant valvular stenosis or regurgitation. Electronically signed by : Juana Milligan MD 01/20/2025 22:48:41
--- NOTE | 2025-01-16 08:45 | CA_ITS ---
FINAL REPORT CLINICAL HISTORY: dizziness/lightheaded COMPARISON: None FINDINGS: RIGHT CAROTID: CCA PSV - 94 cm/sec ICA PSV - 84 cm/sec ICA/CCA PSV ratio -0.97 . Comments: Mild plaque disease is noted. LEFTCAROTID: CCA PSV - 113. cm/sec ICA PSV - 83. cm/sec ICA/CCA PSV ratio - 1.01 . Comments: Mild plaque disease is noted. Antegrade flow is seen within the vertebral arteries. IMPRESSION: Carotid stenosis classified less than 50% Reviewed, Interpreted and Dictated by Fam Aquino MD Transcribed by Jhoana Larios Authenticated and . [facility]
[2025-01-16 09:56] VITALS: BP 120/71; PULSE 54; RESP 18; O2SAT 95; BMI 41.9
[2025-01-16 10:10] VITALS: BP 139/76; PULSE 60; RESP 18; O2SAT 92
[2025-01-16] MEDS: DEXAMETHASONE 10MG/ML 1ML VIAL 10 MG (10:10)
[2025-01-16 10:13] VITALS: BP 139/76; PULSE 62; RESP 18; O2SAT 93
--- NOTE | 2025-01-16 10:15 | EXP.PAIN.PRO ---
Procedure Date: 01/16/25 Time: 10:10 Anesthesiologist:: Dequan Cramer CRNA Complications:: None Pre-procedure Diagnosis:: Degenerative disc lumbar spine multilevels. Lumbar radiculopathy. Post-procedure Diagnosis:: Same. Indications for Procedure:: Patient is a pleasant 69-year-old male who comes our clinic today for lumbar epidural steroid injection. Patient describes low lumbar back pain as constant, dull, aching. He also reports bilateral hip and leg radicular symptoms at times. He rates his pain 7/10. Procedure Details:: Procedure: Lumbar epidural steroid injection under fluoroscopy Informed consent was obtained and the risks and benefits of the procedure were explained to the patient. The patient was taken to the procedure room and noninvasive monitors placed, including noninvasive blood pressure cuff and pulse oximeter. The back was viewed using C-arm Fluoroscopy and prepped using Chloraprep as a cleansing solution and the L4-L5 interspace was palpated. Skin and subcutaneous tissues were anesthetized using lidocaine 1.5% and a 25-gauge needle. After this, an 18-gauge Touhy epidural needle was placed into the L4-L5 interspace and advanced using fluoroscopic guidance and loss of resistance to air until the epidural space was encountered. After confirmation of needle placement in the epidural space, with dye, a solution containing normal saline, 3 mL and dexamethasone 10 mg were incrementally injected into the lumbar epidural space. The patient tolerated the procedure well with no complications. The patient was observed in the Pain Clinic and then discharged home neurologically intact. Plan and Disposition:: Patient was discharged without incident.
[2025-01-16 10:18] VITALS: BP 133/85; PULSE 52; RESP 18; O2SAT 96
== END 2025-01-16 10:18 | disposition home or self-care (01) ==
LOC: RT 07:57 → SC.PAINP 09:54
PROVIDERS: PCP Family Medicine; Visit Provider Nurse Anesthetist, Certified Registered
DX: M51.16 Intervertebral disc disorders with radiculopathy, lumbar region (principal); M48.062 Spinal stenosis, lumbar region with neurogenic claudication; R06.02 Shortness of breath; R42 Dizziness and giddiness; I10 Essential (primary) hypertension; E78.5 Hyperlipidemia, unspecified; I25.10 Atherosclerotic heart disease of native coronary artery without angina pectoris; J43.9 Emphysema, unspecified; Z87.891 Personal history of nicotine dependence; Z79.899 Other long term (current) drug therapy; Z79.82 Long term (current) use of aspirin; Z79.02 Long term (current) use of antithrombotics/antiplatelets
CPT/HCPCS: 62323; 93306; 93880; J1100

== ENCOUNTER 2025-01-25 08:18 | Outpatient (CLI) | payer MEDICARE, BC, SELFPAY ==
--- OUTSIDE RECORDS SUMMARY | 2025-01-18 11:45 | XMS_ITS | Encounter Summary ---
[facility] Organization [facility] Address [address] [place] [address] Care Team Providers Care Sheet Writer Name Role Phone Fredy Delaney MD Primary Care Provider + Reason for Referral * Diagnostic Imaging (Routine) - Authorized Specialty Diagnoses / Procedures Referred By Contac t Referred To Contact Diagnoses Hyperbilirubinemia Procedures US Liver Fredy Delaney MD [address] [place] [address] Phone: tel: fax: [facility] - OUTPT PHYSICAL THERAPY [address] [place] [facility], [facility] [address] [place] [address] Phone: tel: fax: Referral ID Status Reason Start Date Expiration Date V isits Requested Visits Authorized [id number] Authorized 01/18/2025 04/19/2026 1 1 * Consultation (Routine) - Authorized Specialty Diagnoses / Procedures Referred By Contac t Referred To Contact Gastroenterology Diagnoses Hyperbilirubinemia Procedures IN OFFICE/OUTPATIENT NEW MODERATE MDM 45 MINUTES Fredy Delaney MD [address] [place] [address] Phone: tel: fax: Mike Quigley MD [address] [place] [address] [place] [address] Phone: tel: fax: Referral ID Status Reason Start Date Expiration Date Visits Requested Visits Authorized [id number] Authorized Specialty Services Required 01/18/2025 04/19/2026 1 1 Reason for Visit * Reason Comments review labs from cardio Pt was told he n eeded a referral to Gastro due to elevated LFT's Encounter Details Date Type Department Care Team (Latest Contact Info) Description 01/18/2025 11:45 AM EDT Office Visit [facility] [address] [place] [address] Fredy Delaney MD [address] [facility] [place] [address] Hyperbilirubinemia (Primary Dx); Positional lightheadedness Social [...] to gastroenterology and arrange liver ultrasound at [facility] Suspect Crigler-Lexx or Gilbert syndrome * Fredy Delaney MD - 01/18/2025 11:45 AM EDT Chief Complaint Patient presents with review labs from cardio Pt was told he needed a referral to Gastro due to elevated LFT's Subjective Nelson Garrett is a 69 y.o. who presents for 2 concerns. Abnormal liver function test. Patient recently had labs ordered by his administration specialist as part of an evaluation for dizziness [...] Delaney MD on 01/18/2025: Data reviewed : Supervisor Electronics Inspection notes cardiology January 04, 2025 and BMP, liver function test, CBC January 2025 Prior CMP in 2022 with normal Bilirubin Assessment and Plan Diagnoses and all orders for this visit: 1. Hyperbilirubinemia (Primary) Assessment & Plan: Newly identified problem. Refer to gastroenterology and arrange liver ultrasound at [facility] Suspect Crigler-Lexx or Gilbert syndrome Orders: - [...] Description 04/12/2025 10:00 AM EDT Office Visit [facility] [address] [place] [address] Fredy Delaney MD [address] [place] [address] Scheduled Orders Name Type Priority Associated Diagnoses Orde r Schedule US Liver Imaging Routine Hyperbilirubinemia Expected: 2025, Expires: 04/20/2026 documented as of this encounter Visit Diagnoses Diagnosis Hyperbilirubinemia- Primary Disorders of bilirubin excretion Positional lightheadedness documented in this encounter Care Teams Sheet Writer Relationship Specialty Start Date End Date Fredy Delaney MD [address] [place] [address] PCP - General Family Medicine 04/01/22 documented as of this encounter
--- NOTE | 2025-01-25 08:20 | US_ITS ---
FINAL REPORT TECHNIQUE: Multiple transverse and longitudinal scans were performed of the right upper quadrant of the abdomen. CLINICAL HISTORY: HYPERBILIRUBINEMIA COMPARISON: None FINDINGS: HEPATIC ULTRASOUND The pancreas is partially obscured. There is fatty infiltration of the liver. There is a subtle rounded more hyperechoic area measuring 17 mm near the gallbladder fossa. This could represent a mass or a more pronounced area of fatty change. The gallbladder bile ducts are normal. The common duct measures 3 mm. There is no fluid collection. Limited images of the right kidney are unremarkable. IMPRESSION: Fatty infiltration of the liver. Rounded hyperechoic area near the gallbladder fossa which represents either focal fatty change or mass. MRI or CT may better distinguish it. Reviewed, Interpreted and Dictated by Fam Aquino MD Transcribed by Lu Sheth Authenticated and [facility]
--- OUTSIDE RECORDS SUMMARY | 2025-01-25 08:21 | XMS_ITS | Clinical Summary ---
Author Organization [facility] Address [address] [place] [address] Care Team Providers Care Ultrasound Tester Name Role Phone Fredy Delaney MD Primary Care Provider + Allergies No known active allergies Medications Anoro Ellipta 62.5-25 MCG/INH aerosol powder inhaler 03/04/2022 Active albuterol sulfate HFA 108 (90 Base) MCG/ACT inhaler Inhale 2 puffs Every 4 (Four) Hours As Needed for Wheezing. Active escitalopram (LEXAPRO) 20 MG tablet TAKE 1 TABLET DAILY 90 tablet 3 03/23/2024 Active aspirin 81 MG EC tablet Take 1 tablet by mouth Daily. 10/18/2023 Active spironolactone (ALDACTONE) 25 MG tablet Take 1 tablet by mouth Daily. 02/17/2024 Active prasugrel (EFFIENT) 10 MG tablet Take 1 tablet by mouth Daily. 11/24/2023 Active Adalimumab-ryvk, 2 Pen, 40 MG/0.4ML Auto-injector Kit 2024 Active bisoprolol (ZEBeta) 5 MG tablet Take 1 tablet by mouth Daily. 11/24/2023 Active bumetanide (BUMEX) 1 MG tablet Take 1 tablet by mouth 2 (Two) Times a Day. 03/16/2024 Active atorvastatin (LIPITOR) 40 MG tabletIndication s:Hypercholester olemia Take 1 tablet by mouth Every Night. 90 tablet 3 08/15/2024 Active ALPRAZolam (XANAX) 0.5 MG tabletIndication s:Anxiety Take 1 tablet by mouth 2 (Two) Times a Day As Needed for Anxiety. 180 tablet 1 11/28/2024 Active Active Problems Problem Noted Date Diagnosed Date Hyperbilirubinemia 01/18/2025 Assessment & Plan (01/18/2025 12:10 PM EDT): Newly identified problem. 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 Class 3 severe obesity due t o excess calories with serious comorbidity in adult 04/01/2022 Assessment & Plan (04/01/2022 3:21 PM EDT): Patient's (Body mass index is 41.64 kg/m .) indicates that they are morbidly obese (BMI > 40 or > 35 with obesity - related health condition) with health conditions that include dyslipidemias and osteoarthritis . Weight is unchanged. BMI is is above average; BMI management plan is completed. We discussed portion control and increasing exercise. Chronic obstructive pulmonary disease 04/01/2022 Overview (04/01/2022): Homogenizer Operator--Dr. Vilma Bo at [facility] Former smoker 04/01/2022 Encounters Date Type Department Care Team Description 01/18/2025 11:45 AM EDT Office Visit [facility] [address] [facility] [address] [place] [address] Fredy Delaney MD Hyperbilirubinemia (Primary Dx); Positional lightheadedness 01/18/2025 Travel 11/28/2024 Refill [facility] [address] [address] Fredy Delaney MD Anxiety from Last 3 Months Immunizations Immunization Administration Dates Next Due ABRYSVO (RSV, 60+ or women 32-36 wks) 1 COVID-19 (MODERNA) 1st,2nd,3rd Dose Monovalent 0 10/02/2020,09/04/2020 COVID-19 (MODERNA) BIVALENT 12+YRS 04/09/2022 COVID-19 (MODERNA) Monovalent Original Booster 0 10/27/2021,05/05/2021 Flu Vaccine Quad PF >36MO 04/16/2016 Fluzone (or Fluarix & Flulaval for VFC) >6mos Fluzone High-Dose 65+YRS 04/04/2024 Fluzone High-Dose 65+yrs 04/01/2023,04/09/2022 Hepatitis B 2 Dose Vaccine Heplisav-B 10/08/2023 Pneumococcal Conjugate 20-Valent (PCV20) 023 Shingrix 05/03/2024 Td (TDVAX) 09/11/1996 Family History Medical History Relation Name Comments Anxiety disorder Mother Marlena Lucas Breast cancer Mother Marlena Lucas COPD Mother Marlena Lucas Stroke Mother Marlena Lucas Diabetes Paternal Grandmother Sena Lucas Relation Name Status Comments Father Mother Marlena Lucas Paternal Grandmother Sena Lucas Social History Tobacco Use Types Packs/Day Years [...] on file Sexual Orientation Not on file Last Filed Vital Signs Vital Sign Reading [...] Mass Index 41.98 01/18/2025 11:28 AM EDT Plan of Treatment Upcoming Encounters Date Type Department Care Team (Late st Contact Info) Description 04/12/2025 10:00 AM EDT Office Visit [facility] [address] [facility] [place] [address] Fredy Delaney MD [address] [facility] [address] Health Maintenance Due Date Last Done Comments COLOGUARD 2002 COLON CANCER SCREENING [address] COLONOGRAPHY 2002 FECAL OCCULT BLOOD TEST 2002 FIT Testing (1 year) 2002 TDAP/TD VACCINES (2 - Tdap) 09/11/2006 09/11/1996 HEPATITIS C SCREENING 04/01/2022 COVID-19 Vaccine ( season) 2025 04/18/2024, 05/13/2023, 04/09/2022, Additional history exists Postponed from 10/17/2024 (Product Unavailable) INFLUENZA VACCINE 04/04/2025 04/04/2024, , 04/09/2022, Additional history exists LIPID PANEL 05/16/2025 05/16/2024, 07/06, 04/01/2023, Additional history exists LUNG CANCER SCREENING 08/29/2025 08/29/2024 ANNUAL WELLNESS VISIT 10/06/2025 10/06/2024 , 10/06/2024, 10/04/2023, Additional history exists COLONOSCOPY 07/26/2030 07/26/2020 COLORECTAL CANCER SCREENING 07/26/2030 Pneumococcal Vaccine 50+ Completed 09/29/2022 AAA SCREEN ONCE Completed 11/26/2022, 11/26/2022 ZOSTER VACCINE Completed 08/09/2024, 05/03/2024 Procedures Procedure Name Priority Date/Time Associated Diagnosis Comments SCANNED - IMAGING 01/16/2025 SCANNED - LABS 01/04/2025 SCANNED - LABS 01/04/2025 SCANNED - IMAGING 12/08/2024 LIPID PANEL Routine 04/01/2023 10:31 AM EDT Hypercholesterolemia Class 3 severe obesity due to excess calories with serious comorbidity and body mass index (BMI) of 40.0 to 44.9 in adult Primary hypertension from Last 3 Months or Most Recently Relevant to Health Maintenance Results * IMAGING SCANNED (01/16/2025) Only the most recent of2 resultswithin the time period is included. Anatomical Region Laterality Modality Radiographic Nicolette ging Fredy Delaney MD IMG DIAGNOSTIC IMAGING O RDERABLES Final Result * LABS SCANNED (01/04/2025) Only the most recent of2 resultswithin the time period is included. us Fredy Delaney MD LAB BLOOD ORDERABLES Fin al Result * (ABNORMAL) Lipid Panel (04/01/2023 10:31 AM EDT) Total Cholesterol 153 0 - 200 mg/dL [facility] Comment: Cholesterol Reference Ranges (U.S. Department of Health and Human Services ATP III Classifications) Desirable <200 mg/dL Borderline High 200-239 mg/dL High Risk >240 mg/dL Triglyceride Reference Ranges (U.S. Department of Health and Human Services ATP III Classifications) Normal <150 mg/dL Borderline High 150-199 mg/dL High 200-499 mg/dL Very High >500 mg/dL HDL Reference Ranges (U.S. Department of Health and Human Services ATP III Classifications) Low <40 mg/dl (major risk factor for CHD) High >60 mg/dl ('negative' risk factor for CHD) LDL Reference Ranges (U.S. Department of Health and Human Services ATP III Classifications) Optimal <100 mg/dL Near Optimal 100-129 mg/dL Borderline High 130-159 mg/dL High 160-189 mg/dL Very High >189 mg/dL Triglycerides 215(H) 0 - 150 mg/dL [facility] HDL Cholesterol 34(L) 40 - 60 mg/dL [facility] VLDL Cholesterol Emiliano 36 5 - 40 mg/dL [facility] LDL Chol Calc (NIH) 83 0 - 100 mg/dL [facility] Blood 04/01/2023 10:3 1 AM EDT 04/01/2023 Narrative [facility] (AMBULATORY) - 04/02/2023 3:07 AM EDT Performed at: [address] [place] [id number] Regional Rehabilitation Director: Armand Smith MD, Phone: [phone] Patient Fasting: Y Fredy Delaney MD LAB BLOOD ORDERABLES Fin al Result [facility] (AMBULATORY) [address] [place] [address], [place] [phone] [facility] [address] [place] [address], [place] [phone] from Last 3 Months or Most Recently Relevant to Health Maintenance Insurance PPO MEDICARE A & B Care Teams Ultrasound Tester Relationship Specialty Start Date End Date Fredy Delaney MD [address] [place] [address] PCP - General Family Medicine 04/01/22
--- OUTSIDE RECORDS SUMMARY | 2025-01-25 08:22 | XMS_ITS | Encounter Summary ---
[facility] Address [address] [place] [id number] Care Team Providers Care Technical Service Specialist Name Role Phone Fredy Delaney MD Primary Care Provider + Reason for Visit * Reason Onset Date Comments Med Refill 11/28/2024 Encounter Details Date Type Department Care Team (Late st Contact Info) Description 11/28/2024 Refill [facility] [address] [place] [address] Fredy Delaney MD [address] [facility] [place] [address] Anxiety Social History Tobacco Use Types Packs/Day Years Used Date Smoking Tobacco: Former Cigarettes 1 44 0 07/05/1974 - 2018 Passive Smoke Exposure: Never Smokeless Tobacco: Never Alcohol Use Standard Drinks/Week Comments Not Currently [...] on file documented as of this encounter Plan of Treatment Upcoming Encounters Date Type Department Care Team (Late st Contact Info) Description 04/12/2025 10:00 AM EDT Office Visit [facility] [address] [place] [address] Fredy Delaney MD [address] [place] [address] documented as of this encounter Visit Diagnoses Diagnosis Anxiety Anxiety state, unspecified documented in this encounter Care Teams Technical Service Specialist Relationship Specialty Start Date End Date Fredy Delaney MD [address] [place] [address] PCP - General Family Medicine 04/01/22 documented as of this encounter
--- OUTSIDE RECORDS SUMMARY | 2025-01-25 08:22 | XMS_ITS | Encounter Summary ---
[facility] Address [address] [place] [address] Care Team Providers Care Permastone Mechanic Name Role Phone Fredy Delaney MD Primary Care Provider + Encounter Details Date Type Department Care Team (Latest Contact Info) Description 01/18/2025 Travel Social History Tobacco Use Types Packs/Day Years [...] Description 04/12/2025 10:00 AM EDT Office Visit [facility] [address] [facility] [address] Fredy Delaney MD [address] [place] [address] documented as of this encounter Visit Diagnoses Not on filedocumented in this encounter Care Teams Permastone Mechanic Relationship Specialty Start Date End Date Fredy Delaney MD [address] [place] [address] PCP - General Family Medicine 04/01/22 documented as of this encounter
== END 2025-01-25 23:59 | disposition home or self-care (01) ==
LOC: RAD 08:19
PROVIDERS: PCP Family Medicine; Visit Provider Family Medicine
DX: E80.6 Other disorders of bilirubin metabolism (principal); K76.0 Fatty (change of) liver, not elsewhere classified
CPT/HCPCS: 76705

== ENCOUNTER 2025-02-01 11:28 | Outpatient (POV) | payer MEDICARE, BC, SELFPAY ==
--- OUTSIDE RECORDS SUMMARY | 2025-01-18 11:45 | XMS_ITS | Encounter Summary ---
Author Organization [facility]: [address] Address [address] [place] [address] Care Team Providers Care Vending Supervisor Name Role Phone Fredy Delaney MD Primary Care Provider + Reason for Referral * Diagnostic Imaging (Routine) - Authorized Specialty Diagnoses / Procedures Referred By Contac t Referred To Contact Diagnoses Hyperbilirubinemia Procedures US Liver Fredy Delaney MD [address] [place] [address] Phone: tel: fax: [facility] - OUTPT [facility]YSICAL THERAPY [address] [facility] [address] [place] [address] Phone: tel: fax: Referral ID Status Reason Start Date Expiration Date V isits Requested Visits Authorized [id number] Authorized 01/18/2025 04/19/2026 1 1 * Consultation (Routine) - Authorized Specialty Diagnoses / Procedures Referred By Contac t Referred To Contact Gastroenterology Diagnoses Hyperbilirubinemia Procedures CT OFFICE/OUTPATIENT NEW MODERATE MDM 45 MINUTES Fredy Delaney MD [address] [place] [address] Phone: tel: fax: Mike Quigley MD [address] [place] [address] Phone: tel: fax: Referral ID Status Reason Start Date Expiration Date Visits Requested Visits Authorized [id number] Authorized Specialty Services Required 01/18/2025 04/19/2026 1 1 Reason for Visit * Reason Comments review labs from cardio Pt was told he n eeded a referral to Gastro due to elevated LFT's Encounter Details Date Type Department Care Team (Latest Contact Info) Description 01/18/2025 11:45 AM EDT Office Visit [facility] [address] [place] [address] Fredy Delaney MD [address] [place] [address] Hyperbilirubinemia (Primary Dx); Positional lightheadedness Social History Tobacco Use Types Packs/Day Years Used Date Smoking Tobacco: Former Cigarettes 1 44 0 07/05/1974 - 2018 Passive Smoke Exposure: Never Smokeless Tobacco: Never Tobacco Cessation:Counseling Given: Not Answered Alcohol Use Standard Drinks/Week Comments Not Currently 0 (1 standard drink = 0.6 oz pur e alcohol) PHQ-2 Answer Date Recorded Retired PHQ-9: Brief Depression Severity Measure Score 0 09/29/2022 PHQ-2 Answer Date Recorded Patient Health Questionnaire-2 Score 0 10/06/2024 Sex and Gender Information Value Date Recorded Sex Assigned at Male 09/29/2024 7:27 AM EDT Legal Sex Male 8:52 AM EDT Gender Identity Not on file Sexual Orientation Not on file documented as of this encounter Last Filed Vital Signs Vital Sign Reading Time Taken Comments Blood Pressure 130/70 01/18/2025 11:28 AM EDT Pulse 64 01/18/2025 11:28 AM EDT Temperature 36.9 C (98.4 F) 01/18/2025 11:28 AM EDT Respiratory Rate 20 01/18/2025 11:28 AM EDT Oxygen Saturation 97% 01/18/2025 11:28 AM EDT Inhaled Oxygen Concentration - - Weight 144 kg (318 lb 3.2 oz) 01/18/2025 11:28 A M EDT Height 185.4 cm (6' 1 ) 01/18/2025 11:28 AM EDT Body Mass Index 41.98 01/18/2025 11:28 AM EDT documented in this encounter Progress Notes * Fredy Delaney MD - 01/18/2025 12:10 PM EDTAssociated Problem(s): Hyperbilirubinemia Newly identified problem. Refer to gastroenterology and arrange liver ultrasound at [facility] Suspect Crigler-Lexx or Gilbert syndrome * Fredy Delaney MD - 01/18/2025 11:45 AM EDT Chief Complaint Patient presents with review labs from cardio Pt was told he needed a referral to Gastro due to elevated LFT's Subjective Nelson Garrett is a 69 y.o. who presents for 2 concerns. Abnormal liver function test. Patient recently had labs ordered by his pig machine operator as part of an evaluation for dizziness that revealed elevated total bilirubin of 1.6 with all of that elevation dueto to elevated unconjugated bilirubin. This is the first time he is had this abnormality detected. He denies any changes in health other than his second concern which is dizziness. Patient does not drink alcohol. He denies any recent changes in medications. Dizziness. Patient reports episodes of dizziness with position changes primarily noticeable when getting out of a car. He initially saw cardiology and workup is in progress as he is currently wearinga Holter monitor. He had an episode today when arriving to his appointment. Dizziness generally lasts approximately a minute although today's episode seems to be lasting longer. He denies any chest pain. He has some chronic dyspnea on exertion from a combination of COPD and obesity. The following portions of the patient's history were reviewed and updated as appropriate: allergies, current medications, past family history, past medical history, past social history, past surgicalhistory, and problem list. Review of Systems Objective Vital Signs: BP 130/70 Pulse 64 Temp 98.4 ??F (36.9 ??C) Resp 20 Ht 185.4 cm (73 ) Wt (!) 144 kg (318 lb 3.2 oz) SpO2 97% BMI 41.98 kg/m?? Physical Exam Vitals (Standing blood pressure 100/60) reviewed. Constitutional: Appearance: Normal appearance. HENT: Head: Normocephalic and atraumatic. Right Ear: Tympanic membrane and ear canal normal. Left Ear: Tympanic membrane and ear canal normal. Nose: Nose normal. Mouth/Throat: Mouth: Mucous membranes are moist. Pharynx: Oropharynx is clear. Eyes: Conjunctiva/sclera: Conjunctivae normal. Cardiovascular: Rate and Rhythm: Normal rate and regular rhythm. Heart sounds: Normal heart sounds. No murmur heard. Pulmonary: Effort: Pulmonary effort is normal. No respiratory distress. Breath sounds: Normal breath sounds. Abdominal: General: Bowel sounds are normal. Musculoskeletal: Cervical back: Normal range of motion and neck supple. No tenderness. Lymphadenopathy: Cervical: No cervical adenopathy. Skin: General: Skin is warm and dry. Neurological: Mental Status: He is alert. Psychiatric: Mood and Affect: Mood normal. Result Review The following data was reviewed by: Fredy Delaney MD on 01/18/2025: Data reviewed : Payroll And Benefits Assistant notes cardiology January 04, 2025 and BMP, liver function test, CBC January 2025 Prior CMP in 2022 with normal Bilirubin Assessment and Plan Diagnoses and all orders for this visit: 1. Hyperbilirubinemia (Primary) Assessment & Plan: Newly identified problem. Refer to gastroenterology and arrange liver ultrasound at [facility] Suspect Crigler-Lexx or Gilbert syndrome Orders: - Ambulatory Referral to Gastroenterology - US Liver; Future 2. Positional lightheadedness Comments: New. Workup ongoing. Eval today suggestive of orthostatic hypotension. Monitor closely at home withcorrect technique. Contact office for conerns Follow Up No follow-ups on file. Patient was given instructions and counseling regarding his condition or for health maintenance advice. Please see specific information pulled into the AVS if appropriate. documented in this encounter Plan of Treatment Upcoming Encounters Date Type Department Care Team (Late st Contact Info) Description 04/12/2025 10:00 AM EDT Office Visit [facility] [address] [place] [id number] Fredy Delaney MD [address] [place] [address] Scheduled Orders Name Type Priority Associated Diagnoses Orde r Schedule US Liver Imaging Routine Hyperbilirubinemia Expected: 2025, Expires: 04/20/2026 documented as of this encounter Procedures Procedure Name Priority Date/Time Associated Diagnosis Comments SCANNED - IMAGING 01/25/2025 documented in this encounter Results * IMAGING SCANNED (01/25/2025) Anatomical Region Laterality Modality Radiographic Nicolette ging Result [facility] Fredy eDlaney MD IMG DIAGNOSTIC IMAGING O RDERABLES Final Result documented in this encounter Visit Diagnoses Diagnosis Hyperbilirubinemia- Primary Disorders of bilirubin excretion Positional lightheadedness documented in this encounter Care Teams Vending Supervisor Relationship Specialty Start Date End Date Fredy Delaney MD [address] [place] [address] PCP - General Family Medicine 04/01/22 documented as of this encounter
--- OUTSIDE RECORDS SUMMARY | 2025-02-01 11:32 | XMS_ITS | Encounter Summary ---
[facility] Address [address] [place] [address] Care Team Providers Care Lead Cargoman Name Role Phone Fredy Delaney MD Primary [...] Description 04/12/2025 10:00 AM EDT Office Visit [facility] [address] [facility] [place] [address] Fredy Delaney MD [address] [place] [address] documented as of this encounter Visit Diagnoses Not on filedocumented in this encounter Care Teams Lead Cargoman Relationship Specialty Start Date End Date Fredy Delaney MD [address] [place] [address] PCP - General Family Medicine 04/01/22 documented as of this encounter
--- OUTSIDE RECORDS SUMMARY | 2025-02-01 11:32 | XMS_ITS | Encounter Summary ---
Author Organization [facility] yste Address [address] [place] [address] Care Team Providers Care Potato Chip Sorter Name Role Phone Fredy Delaney MD Primary Care Provider + Encounter Details Date Type Department Care Team (Late Contact Info) Description 01/26/2025 Results Follow-Up [facility] [address] [facility] [place] [address] Fredy Delaney MD [address] [facility] [place] [address] Social History Tobacco Use Types Packs/Day Years [...] Description 04/12/2025 10:00 AM EDT Office Visit [facility] [address] [facility] [place] [address] Fredy Delaney MD [address] [address] documented as of this encounter Visit Diagnoses Not on filedocumented in this encounter Care Teams Potato Chip Sorter Relationship Specialty Start Date End Date Fredy Dleaney MD [address] [address] PCP - General Family Medicine 04/01/22 documented as of this encounter
--- OUTSIDE RECORDS SUMMARY | 2025-02-01 11:32 | XMS_ITS | Clinical Summary ---
Author Organization [facility] ystem Address [address] [place] [address] Care Team Providers Care Combustion Engineer Name Role Phone Fredy Delaney MD Primary [...] to gastroenterology and arrange liver ultrasound at [facility] Suspect Crigler-Lexx or Gilbert syndrome Coronary artery disease invo lving barrow coronary artery of barrow heart without angina pectoris 04/04/2024 Diastolic dysfunction [...] Chronic obstructive pulmonary disease 04/01/2022 Overview (04/01/2022): Spring Former Hand--Dr. Vilma Bo at [facility] Former smoker 04/01/2022 Encounters Date Type Department Care Team Description 01/26/2025 Results Follow-Up [facility] [address] [place] [phone] Fredy Delaney MD 01/18/2025 11:45 AM EDT Office Visit [facility] [address] [place], [place] [phone] Fredy Delaney MD Hyperbilirubinemia (Primary Dx); Positional lightheadedness 01/18/2025 Travel 11/28/2024 Refill [facility] [address] [place], [place] [phone] Fredy Delaney MD Anxiety from Last 3 [...] Description 04/12/2025 10:00 AM EDT Office Visit [facility] [address] [facility] [place] [address] Fredy Delaney MD 210 [facility] [address] [place], [place] [id number] Health Maintenance Due Date Last Done Comments [...] Associated Diagnosis Comments SCANNED - IMAGING 01/25/2025 SCANNED - IMAGING 01/16/2025 SCANNED - LABS 01/04/2025 SCANNED - LABS 01/04/2025 SCANNED - IMAGING 12/08/2024 LIPID PANEL Routine 04/01/2023 10:31 AM EDT Hypercholesterolemia Class 3 severe obesity due to excess calories with serious comorbidity and body mass index (BMI) of 40.0 to 44.9 in adult Primary hypertension from Last 3 Months or Most Recently Relevant to Health Maintenance Results * IMAGING SCANNED (01/25/2025) Only the most recent of3 resultswithin the time period is included. Anatomical Region Laterality Modality Radiographic Nicolette ging Fredy Delaney MD IMG DIAGNOSTIC IMAGING O RDERABLES Final Result * LABS SCANNED (01/04/2025) Only the most recent of2 resultswithin the time period is included. Fredy Delaney MD LAB BLOOD ORDERABLES Fin [...] 10:3 1 AM EDT 04/01/2023 Narrative [facility] (AMBULATORY) - 04/02/2023 3:07 AM EDT Performed at: [address] [place] [address] [id number] Resin Maker: Armand Smith MD, Phone: [phone] Patient Fasting: Y Fredy Delaney MD LAB BLOOD ORDERABLES Fin al Result Performing Organization Address City/State/[facility] Co de Phone Number [facility] (AMBULATORY) [address] [place] [address], [facility] [address] [place] [address], [place] [phone] from Last 3 Months or Most Recently Relevant to Health Maintenance Insurance MEDICARE A & B Care Teams Combustion Engineer Relationship Specialty Start Date End Date Fredy Delaney MD [address] [place] [address] PCP - General Family Medicine 04/01/22
[2025-02-01 11:54] VITALS: BP 128/60; PULSE 55; RESP 14; O2SAT 93; BMI 42.2
--- NOTE | 2025-02-01 12:06 | EXP.PAIN.SOA ---
[facility] Disclaimer: The information contained in this section may have been updated after the patient was seen, as this information can be updated by other users. Medical History Dizziness Edema HLD (hyperlipidemia) HTN (hypertension) Coronary artery disease Abnormal findings on diagnostic imaging of heart and coronary circulation Dyspnea Coronary artery calcification Sleep apnea Nocturnal hypoxia Screening for lung cancer COPD (chronic obstructive pulmonary disease) Pulmonary emphysema Multiple pulmonary nodules Stopped smoking with greater than 30 pack year history Dyspnea on exertion History of umbilical hernia History of COPD Surgical History Hx of cardiac cath History of umbilical hernia repair History of colonoscopy History of tonsillectomy and adenoidectomy History of excision of pilonidal cyst History of left knee replacement Family History Other Family history of breast cancer Family history of hypertension Social History Smoking Status: Former smoker tobacco type: cigarettes packs per day: 2 alcohol intake: never substance use type: denies use current occupational status: other Travel in the last 8 weeks?: None household members: spouse housing: house caffeine: No PM Subjective & Objective Subjective Subjective:: Patient is a pleasant 70-year-old male who presents today for follow-up of his lumbar epidural steroid injection L4-L5 on 01/16/2025. Today he rates his pain as 7 out of 10. He denies any new falls or injuries. He does state that the splint did not seem to work as well as his previous. Patient's last epidural in July did provide 75% relief and did ease down the pain for at least 3 months. Patient does state today that he is possibly getting go see his chiropractor and see if that does help ease down some of the pain. His Apollo has been reviewed and is appropriate. He is prescribed methocarbamol 750 mg 3 times a day from our office. Review of Systems: General: No recent weight changes, no fever, no sleep disturbances Respiratory: No cough, no shortness of air, no recurring pulmonary infections Cardiovascular/peripheral vascular: No chest pain, no palpitations, no edema, no shortness of breath Gastrointestinal: No new onset incontinence, normal bowel movements reported Genitourinary: No new onset incontinence Musculoskeletal: Low back pain, bilateral leg pain Psychiatric: [Normal mood/affect] Neurological: [Denies weakness in extremities], [denies balance issues] Pain at rest (0-10 scale): 7 Objective Objective:: Physical Exam: General: Alert and oriented x3, no acute distress, pleasant and cooperative Lungs: Respirations even and unlabored, symmetrical chest expansion Eyes: PERRL Musculoskeletal: Flexion and extension of lumbar [spine] somewhat guarded secondary to pain, [antalgic gait noted] Neurological: Speech clear, no gross sensory deficit Has patient had previous pain injection?: Yes Percent improvement in pain since last injection: Minimal Conservative treatment options previously tried: Home exercise plan Length of treatment: Longer than 12-week Meds Home Medications and Allergies Home Medications ?Medication ?Instructions ?Recorded ?Confirmed ?Type alprazolam 0.5 mg tablet 0.5 mg PO TIDP PRN Anxiety 07/18/20 02/01/25 History escitalopram oxalate 20 mg tablet 20 mg PO DAILY Depression 07/18/20 02/01/25 History albuterol sulfate 90 mcg/actuation 1 inh inhalation Q6H PRN shortness 11/25/22 02/01/25 Rx aerosol inhaler of breath or wheezing 90 days #8.5 grams aspirin 81 mg tablet,delayed 81 mg PO DAILY 10/18/23 02/01/25 History release (Adult Aspirin Regimen) adalimumab 40 mg/0.4 mL 40 mg SQ Q2W 12/07/23 02/01/25 History subcutaneous pen kit (Humira(CF) Pen) umeclidinium 62.5 mcg-vilanterol 1 inh inhalation DAILY 90 days 02/22/24 02/01/25 Rx 25 mcg/actuation powdr for #180 ea inhalation (Anoro Ellipta) atorvastatin 40 mg tablet 40 mg PO DAILY 08/29/24 02/01/25 History bisoprolol fumarate 5 mg tablet 5 mg PO DAILY #90 tabs 11/10/24 02/01/25 Rx spironolactone 25 mg tablet 25 mg PO DAILY #90 tabs 11/10/24 02/01/25 Rx (Aldactone) bumetanide 1 mg tablet 2 mg (2 x 1 mg) PO DAILY #180 tabs 12/14/24 02/01/25 Rx methocarbamol 750 mg tablet 750 mg PO TID #90 tabs 12/21/24 02/01/25 Rx adalimumab-ryvk 40 mg/0.4 mL 40 mg SQ . 01/04/25 02/01/25 History subcutaneous auto-injector kit New Prescriptions to Start Prescriptions: Allergies Allergy/AdvReac Type Severity Reaction Status Date / Time No Known Allergies Allergy Verified 02/01/25 10:01 Assessment and Plan *Assessment and plan (1) Lumbar radiculopathy: Status: Acute Category: Medical Code(s): M54.16 - Radiculopathy, lumbar region (2) Left hip pain: Status: Acute Category: Medical Code(s): M25.552 - Pain in left hip (3) Degenerative disc disease, lumbar: Status: Acute Category: Medical Code(s): M51.369 - Other intervertebral disc degeneration, lumbar region without mention of lumbar back pain or lower extremity pain Plan I did discuss with the patient that the epidural procedure where his last one did provide 75% relief. We did discuss the possibility of repeat epidural injection in future. I did also discuss with the patient in future I do believe he would benefit from neurosurgery consult as well as possible pump trial in the future. We did review over risk and benefits and discussed ordering the psychological evaluation and referral to neurosurgery. Patient was counseled if he decides to between now and his next appointment to proceed forward with those options he can call and we will send in the referrals for both of these. Patient agrees with this plan of care. Patient will return to clinic in 3 months for reevaluation of symptoms and plan of care. Patient has been instructed to contact the clinic with any concerns before the next appointment. Dr. Valle has reviewed this note and agrees with this plan of care. This note was dictated using voice recognition software and make contain errors or omissions. All injections are used with Lidocaine, Bupivacaine and dexamethasone. Occasionally urine drug screen is needed to verify patient's compliance with our office pain contract. This is ordered based off specific treatments related to chronic pain with the potential to abuse certain medications.
== END 2025-02-01 23:59 | disposition home or self-care (01) ==
LOC: SC.PAIN 11:30
PROVIDERS: PCP Family Medicine; Visit Provider Nurse Practitioner Family
DX: M51.16 Intervertebral disc disorders with radiculopathy, lumbar region (principal); M25.552 Pain in left hip; Z79.899 Other long term (current) drug therapy
CPT/HCPCS: 99212; G0463

== ENCOUNTER 2025-02-05 08:34 | Outpatient (CLI) | payer MEDICARE, BC, SELFPAY ==
--- OUTSIDE RECORDS SUMMARY | 2025-01-18 11:45 | XMS_ITS | Encounter Summary ---
[facility] Address [address] [place] [address] Care Team Providers Care Corduroy Cutting Supervisor Name Role Phone Fredy Delaney MD Primary Care Provider + Reason for Referral * Diagnostic Imaging (Routine) - Authorized Specialty Diagnoses / Procedures Referred By Contac t Referred To Contact Diagnoses Hyperbilirubinemia Procedures US Liver Fredy Delaney MD [address] [place] [address] Phone: tel: fax: [facility] - OUTPT PHYSICAL THERAPY [address] [place] [facility] [address] [place] [address] Phone: tel: fax: Referral ID Status Reason Start Date Expiration Date V isits Requested Visits Authorized [id number] Authorized 01/18/2025 04/19/2026 1 1 * Consultation (Routine) - Authorized Specialty Diagnoses / Procedures Referred By Contac t Referred To Contact Gastroenterology Diagnoses Hyperbilirubinemia Procedures [place] OFFICE/OUTPATIENT NEW MODERATE MDM 45 MINUTES Fredy Delaney MD [address] [place] [address] Phone: tel: fax: Mike Quigley MD [address] [place] [address] [place] [address] Phone: tel: fax: Referral ID Status Reason Start Date Expiration Date Visits Requested Visits Authorized [id number] Authorized Specialty Services Required 01/18/2025 04/19/2026 1 1 Reason for Visit * Reason Comments review labs from cardio Pt was told he n eeded a referral to Gastro due to elevated LFT's Encounter Details Date Type Department Care Team (Latest Contact Info) Description 01/18/2025 11:45 AM EDT Office Visit [facility] [address] [place] [address] Fredy Delaney MD [address] [place] [address] Hyperbilirubinemia (Primary Dx); Positional lightheadedness Social [...] to gastroenterology and arrange liver ultrasound at [facility] Suspect Crigler-Lexx or Gilbert syndrome * Fredy Delaney MD - 01/18/2025 11:45 AM EDT Chief Complaint Patient presents with review labs from cardio Pt was told he needed a referral to Gastro due to elevated LFT's Subjective Nelson Garrett is a 69 y.o. who presents for 2 concerns. Abnormal liver function test. Patient recently had labs ordered by his primer and powder canning leader as part of an evaluation for dizziness [...] Review The following data was reviewed by: Ferdy Delaney MD on 01/18/2025: Data reviewed : Promotional Marketing Analyst notes cardiology January 04, 2025 and BMP, liver function test, CBC January 2025 Prior CMP in 2022 with normal Bilirubin Assessment and Plan Diagnoses and all orders for this visit: 1. Hyperbilirubinemia (Primary) Assessment & Plan: Newly identified problem. Refer to gastroenterology and arrange liver ultrasound at [facility] Suspect Crigler-Lexx or Gilbert syndrome Orders: - [...] Description 04/12/2025 10:00 AM EDT Office Visit [facility] [address] [place] [address] Fredy Delaney MD [address] [place] [address] Scheduled Orders Name Type Priority Associated Diagnoses Orde r Schedule US Liver Imaging Routine Hyperbilirubinemia Expected: 2025, Expires: 04/20/2026 documented as of this encounter Procedures Procedure Name Priority Date/Time Associated Diagnosis Comments SCANNED - IMAGING 01/25/2025 documented in this encounter Results * IMAGING SCANNED (01/25/2025) Anatomical Region Laterality Modality Radiographic Nicolette ging Result [facility] Fredy Delaney MD IMG DIAGNOSTIC IMAGING O RDERABLES Final Result documented in this encounter Visit Diagnoses Diagnosis Hyperbilirubinemia- Primary Disorders of bilirubin excretion Positional lightheadedness documented in this encounter Care Teams Corduroy Cutting Supervisor Relationship Specialty Start Date End Date Fredy Delaney MD [address] [place] [address] PCP - General Family Medicine 04/01/22 documented as of this encounter
--- OUTSIDE RECORDS SUMMARY | 2025-02-05 08:41 | XMS_ITS | Clinical Summary ---
Author Organization [facility] ystem Address [address] [place] [address] Care Team Providers Care Title Processor Name Role Phone Fredy Delaney MD Primary [...] to gastroenterology and arrange liver ultrasound at [facility] Suspect Crigler-Lexx or Gilbert syndrome Coronary artery disease invo lving wales coronary artery of wales heart without angina pectoris 04/04/2024 Diastolic dysfunction [...] Chronic obstructive pulmonary disease 04/01/2022 Overview (04/01/2022): Cut To Length Operator--Dr. Vilma Bo at [facility] Former smoker 04/01/2022 Encounters Date Type Department Care Team Description 01/26/2025 Results Follow-Up [facility] [address] [place] [address] Fredy Delaney MD 01/18/2025 11:45 AM EDT Office Visit [facility] [address] [place], [place] [phone] Fredy Delaney MD Hyperbilirubinemia (Primary Dx); Positional lightheadedness 01/18/2025 Travel 11/28/2024 Refill [facility] [address] [place], [place] [phone] Fredy Delaney MD Anxiety from Last 3 [...] Description 04/12/2025 10:00 AM EDT Office Visit [facility] [address] [facility] [place] [address] Fredy Delaney MD [address] [facility] [place], [place] [id number] Health Maintenance Due Date Last Done Comments COLOGUARD 2002 COLON CANCER SCREENING 5 YEA R SIGMOIDOSCOPY 2002 CT COLONOGRAPHY 2002 FECAL OCCULT BLOOD TEST 2002 FIT Testing (1 year) 2002 TDAP/TD VACCINES (2 - Tdap) 09/11/2006 09/11/1996 HEPATITIS C SCREENING 04/01/2022 COVID-19 Vaccine (2023-2 5 season) 2024 04/18/2024, 05/13/2023, 04/09/2022, Additional history exists INFLUENZA VACCINE 04/04/2025 04/04/2024, , 04/09/2022, Additional [...] - 04/02/2023 3:07 AM EDT Performed at: [address] [place] [id number] Handicraft [employer] Hobby Shop Manager: Armand Smith MD, Phone: [phone] Patient Fasting: Y Fredy Delaney MD LAB BLOOD ORDERABLES Fin al Result Performing Organization Address [facility]/State/[facility] Co de Phone Number [facility] (AMBULATORY) [address] [place] [address], [facility] [address] [place] [address], from Last 3 Months or Most Recently Relevant to Health Maintenance Insurance MEDICARE A & B Care Teams Title Processor Relationship Specialty Start Date End Date Fredy Delaney MD [address] [place] [address] [place] [address] PCP - General Family Medicine 04/01/22
--- OUTSIDE RECORDS SUMMARY | 2025-02-05 08:42 | XMS_ITS | Encounter Summary ---
Author Organization [facility] yste Address [address] [place] [address] Care Team Providers Care Communications Writer Name Role Phone Fredy Delaney MD Primary Care Provider + Encounter Details Date Type Department Care Team (Late Contact Info) Description 01/26/2025 Results Follow-Up [facility] MED[facility] [address] [facility] [place] [address] Fredy Delaney MD 210 [facility] [place] [address] Social History Tobacco Use Types [...] Description 04/12/2025 10:00 AM EDT Office Visit [facility] [address] [facility] [address] Fredy Delaney MD [address] [place] [address] documented as of this encounter Visit Diagnoses Not on filedocumented in this encounter Care Teams Communications Writer Relationship Specialty Start Date End Date Fredy Delaney MD [address] [place] [address] PCP - General Family Medicine 04/01/22 documented as of this encounter
--- OUTSIDE RECORDS SUMMARY | 2025-02-05 08:42 | XMS_ITS | Encounter Summary ---
[facility] Address [address] [place] [address] Care Team Providers Care Facialist Name Role Phone Fredy Delaney MD Primary [...] Description 04/12/2025 10:00 AM EDT Office Visit [facility] [address] [facility] [place] [address] Fredy Delaney MD [address] [place] [address] documented as of this encounter Visit Diagnoses Not on filedocumented in this encounter Care Teams Facialist Relationship Specialty Start Date End Date Fredy Delaney MD [address] [place] [address] PCP - General Family Medicine 04/01/22 documented as of this encounter
[2025-02-05 09:30] LABS: Hematocrit 48.0 % (42.0-52.0); Hemoglobin 16.0 g/dL (14.1-18.0); Immature Granulocytes % 0.6 %; Mean Corpuscular HGB Conc 33.3 g/dL (31.8-35.4); Mean Corpuscular Hemoglobin 30.4 pg (27.0-31.2); Mean Corpuscular Volume 91.3 fl (80-94); Nucleated Red Blood Cells % 0 %; Platelet Count 186 K/mm3 (142-424); Red Blood Count 5.26 M/mm3 (4.60-6.20); Red Cell Distribution Width-SD 42.0 fL; White Blood Count 9.5 K/mm3 (4.8-10.8)
[2025-02-05 09:44] LABS: Chloride 106 mmol/L (98-107)
[2025-02-05 09:45] LABS: Albumin Level 3.6 g/dl (3.5-5.0); Potassium 4.3 mmoL/L (3.5-5.1); Sodium 138 mmol/L (136-145)
[2025-02-05 09:47] LABS: Alanine Aminotransferase 24 U/L (12-78); Anion Gap 11.3 mEq/L (5-15); Aspartate Amino Transferase 32 U/L (17-59); Blood Urea Nitrogen 20 mg/dl (9-20); Carbon Dioxide 25 mmol/L (22.0-30.0); Creatinine,Serum 0.80 mg/dl (0.66-1.25); Estimated Glomerular Filt Rate 96 ml/min (>60); GFR (African American) 116 ML/MIN (>60)
[2025-02-05 09:48] LABS: Albumin/Globulin Ratio 1.0 (1.1-1.8); Alkaline Phosphatase 93 U/L (38-126); Bilirubin,Total 1.3 mg/dl (0.2-1.3); Calcium 9.4 mg/dl (8.4-10.2); Globulin 3.5 g/dL (1.3-3.2); Glucose 150 mg/dl (74-100); Total Protein,Serum 7.1 g/dl (6.3-8.2)
== END 2025-02-05 23:59 | disposition home or self-care (01) ==
LOC: LAB 08:35
PROVIDERS: PCP Family Medicine; Visit Provider Nurse Practitioner Family
DX: Z79.899 Other long term (current) drug therapy (principal)
CPT/HCPCS: 36415; 80053; 85025; 86480

== ENCOUNTER 2025-03-07 07:48 | Outpatient (CLI) | payer MEDICARE, BC, SELFPAY ==
--- OUTSIDE RECORDS SUMMARY | 2025-01-18 11:45 | XMS_ITS | Encounter Summary ---
[facility] Address [address] [place] [address] Care Team Providers Care Photolettering Machine Operator Name Role Phone Fredy Delaney MD Primary Care Provider + Reason for Referral * Diagnostic Imaging (Routine) - Authorized Specialty Diagnoses / Procedures Referred By Contac t Referred To Contact Diagnoses Hyperbilirubinemia Procedures US Liver Fredy Delaney MD [address] [place] [address] Phone: tel: fax: [facility] - OUTPT PHYSICAL THERAPY [address] [place] [facility] [address] [place] [address] Phone: tel: fax: Referral ID Status Reason Start Date Expiration Date V isits Requested Visits Authorized [id number] Authorized 01/18/2025 04/19/2026 1 1 * Consultation (Routine) - Closed Specialty Diagnoses / Procedures Referred By Contac t Referred To Contact Gastroenterology Diagnoses Hyperbilirubinemia Procedures [place] OFFICE/OUTPATIENT NEW MODERATE MDM 45 MINUTES Fredy Delaney MD [address] [place] [address] Phone: tel: fax: Mike Quigley MD [address] [place] [address] Phone: tel: fax: Referral ID Status Reason Start Date Expiration Date V isits Requested Visits Authorized [id number] Closed Specialty Services Required 01/18/2025 04/19/2026 1 1 Reason for Visit * Reason Comments review labs from cardio Pt was told he n eeded a referral to Gastro due to elevated LFT's Encounter Details Date Type Department Care Team (Latest Contact Info) Description 01/18/2025 11:45 AM EDT Office Visit [facility] [address] [place] [address] Fredy Delaney MD [address] [place] [address] Hyperbilirubinemia (Primary Dx); Positional lightheadedness Social [...] to gastroenterology and arrange liver ultrasound at [facility] Suspect Crigler-Lexx or Gilbert syndrome * Fredy Delaney MD - 01/18/2025 11:45 AM EDT Chief Complaint Patient presents with review labs from cardio Pt was told he needed a referral to Gastro due to elevated LFT's Subjective Nelson Garrett is a 69 y.o. who presents for 2 concerns. Abnormal liver function test. Patient recently had labs ordered by his training specialist as part of an evaluation for [...] Delaney MD on 01/18/2025: Data reviewed : Press Operator Helper notes cardiology January 04, 2025 and BMP, liver function test, CBC January 2025 Prior CMP in 2022 with normal Bilirubin Assessment and Plan Diagnoses and all orders for this visit: 1. Hyperbilirubinemia (Primary) Assessment & Plan: Newly identified problem. Refer to gastroenterology and arrange liver ultrasound at [facility] Suspect Crigler-Lexx or Gilbert syndrome Orders: [...] Description 04/12/2025 10:00 AM EDT Office Visit [facility] [address] [place] [address] Fredy Delaney MD [address] [place] [address] Scheduled Orders Name Type Priority Associated Diagnoses Orde r Schedule US Liver Imaging Routine Hyperbilirubinemia Expected: 2025, Expires: 04/20/2026 documented as of this encounter Procedures Procedure Name Priority Date/Time Associated Diagnosis Comments SCANNED - IMAGING 01/25/2025 documented in this encounter Results * IMAGING SCANNED (01/25/2025) Anatomical Region Laterality Modality Radiographic Nicolette ging Fredy Delaney MD IMG DIAGNOSTIC IMAGING O RDERABLES Final Result documented in this encounter Visit Diagnoses Diagnosis Hyperbilirubinemia- Primary Disorders of bilirubin excretion Positional lightheadedness documented in this encounter Care Teams Photolettering Machine Operator Relationship Specialty Start Date End Date Fredy Delaney MD [address] [place] [address] PCP - General Family Medicine 04/01/22 documented as of this encounter
--- OUTSIDE RECORDS SUMMARY | 2025-03-07 07:50 | XMS_ITS | Encounter Summary ---
[facility] Address [address] [place] [address] Care Team Providers Care Ergonomic Specialist Name Role Phone Fredy Delaney MD [...] Description 04/12/2025 10:00 AM EDT Office Visit [facility] [address] [facility] [place] [address] Fredy Delaney MD [address] [place] [address] documented as of this encounter Visit Diagnoses Not on filedocumented in this encounter Care Teams Ergonomic Specialist Relationship Specialty Start Date End Date Fredy Delaney MD [address] [place] [address] PCP - General Family Medicine 04/01/22 documented as of this encounter
--- OUTSIDE RECORDS SUMMARY | 2025-03-07 07:50 | XMS_ITS | Encounter Summary ---
Author Organization [facility] yste Address [address] [place] [address] Care Team Providers Care Trains Dispatcher Supervisor Name Role Phone Fredy Delaney MD Primary Care Provider + Encounter Details Date Type Department Care Team (Late Contact Info) Description 01/26/2025 Results Follow-Up [facility] MED[facility] [address] [facility] [place] [address] Fredy Delaney MD 210 [facility] [place] [address] Social History Tobacco Use Types [...] Description 04/12/2025 10:00 AM EDT Office Visit [facility] [address] [facility] [place] [address] Fredy Delaney MD [address] [place] [address] documented as of this encounter Visit Diagnoses Not on filedocumented in this encounter Care Teams Trains Dispatcher Supervisor Relationship Specialty Start Date End Date Fredy Delaney MD [address] [place] [address] PCP - General Family Medicine 04/01/22 documented as of this encounter
--- OUTSIDE RECORDS SUMMARY | 2025-03-07 07:50 | XMS_ITS | Clinical Summary ---
Author Organization [facility] ystem Address [address] [place] [address] Care Team Providers Care Manager Of Training And Development Name Role Phone Fredy Delaney MD Primary [...] and arrange liver ultrasound at [facility] Suspect Crigler-Lexx or Gilbert syndrome Coronary artery disease invo lving jackson coronary artery of jackson heart without angina pectoris 04/04/2024 Diastolic dysfunction [...] Chronic obstructive pulmonary disease 04/01/2022 Overview (04/01/2022): Crystal Growing Technician--Dr. Vilma Bo at [facility] Former smoker 04/01/2022 Encounters Date Type Department Care Team Description 01/26/2025 Results Follow-Up [facility] [address] [place] [phone] Fredy Delaney MD 01/18/2025 11:45 AM EDT Office Visit [facility] [address] [place], [place] [address] Fredy Delaney MD Hyperbilirubinemia (Primary Dx); Positional lightheadedness 01/18/2025 Travel from Last 3 Months Immunizations Immunization Administration [...] Description 04/12/2025 10:00 AM EDT Office Visit [facility] [address] [facility] [place] [address] Fredy Delaney MD [address] [place] [address] Health Maintenance Due Date Last Done [...] 10:3 1 AM EDT 04/01/2023 Narrative [facility] (AMBULATORY) - 04/02/2023 3:07 AM EDT Performed at: [address] [place] [id number] Asphalt Mixer: Armand Smith MD, Phone: [phone] Patient Fasting: Y Fredy Delaney MD LAB BLOOD ORDERABLES Fin al Result [facility] (AMBULATORY) [address] [place] [address], [place] [phone] [facility] [address] [place] [address], [place] [phone] from Last 3 Months or Most Recently Relevant to Health Maintenance Insurance PPO MEDICARE A & B Care Teams Manager Of Training And Development Relationship Specialty Start Date End Date Fredy Delaney MD [address] [place] [address] PCP - General Family Medicine 04/01/22
--- NOTE | 2025-03-07 08:00 | CT_ITS ---
FINAL REPORT TECHNIQUE: Pre-and postcontrast axial CT images of the abdomen and pelvis were obtained. Oral contrast was also administered. Coronal reformatted images were also obtained and reviewed. This study was performed with techniques to keep radiation doses as low as reasonably achievable (ALARA). Individualized dose reduction techniques using automated exposure control or adjustment of mA and/or kV according to the patient's size were employed. CLINICAL HISTORY: Hyperechoic lesion near gallbladder fossa on u/s with IV and oral COMPARISON: None FINDINGS: Precontrast images demonstrate no evidence of kidney stones. Postcontrast images demonstrate the lungs bases are clear. There is mild fatty infiltration of the liver. There is a rounded low-attenuation focus adjacent to the gallbladder fossa measuring 1.7 cm in diameter, well-seen on image 24 series 5 and image 51 of series 604. This does not appear to represent a simple cyst and is indeterminate. There is no evidence of peripheral enhancement. The spleen, pancreas, and right adrenal gland are unremarkable. There is a low-attenuation mass in the left adrenal gland measuring 2.8 cm in diameter with mean attenuation value of 8 Hounsfield units on precontrast images consistent with a benign adenoma. The kidneys are unremarkable. The appendix is unremarkable. There is a moderate amount of stool in the colon. Urinary bladder is decompressed. There are moderately advanced changes of degenerative disc disease at L4-5 and L5-S1. There is a subcutaneous mass in the superior right gluteal region measuring 3.2 x 2.2 cm, probably representing a sebaceous cyst and well seen on image 82 of series 5. IMPRESSION: Indeterminate low-attenuation focus in the liver adjacent to the gallbladder fossa. This could represent complex cyst, neoplastic process considered less likely. Follow-up in 6 months recommended or consider MRI without and with contrast for further evaluation. 2.8 cm low-attenuation lesion left adrenal gland consistent with adenoma. Reviewed, Interpreted and Dictated by Romeo Cruz MD Transcribed by Jhoana Larios Authenticated and [facility]
[2025-03-07] MEDS: IOPAMIDOL-370 (76%);100ML BOTTLE 75 ML IV (08:27)
[2025-03-07] MEDS: SODIUM CHLORIDE 0.9% 10ML SYR (RAD ONLY) 10 ML IV (08:27)
== END 2025-03-07 23:59 | disposition home or self-care (01) ==
LOC: RAD 07:48
PROVIDERS: PCP Family Medicine; Visit Provider Internal Medicine Gastroenterology
DX: E80.6 Other disorders of bilirubin metabolism (principal); R16.0 Hepatomegaly, not elsewhere classified; R93.2 Abnormal findings on diagnostic imaging of liver and biliary tract
CPT/HCPCS: 74178; Q9967

== ENCOUNTER 2025-06-26 11:13 | Day surgery (SDC) | payer MEDICARE, BC, SELFPAY ==
[2025-06-26 11:19] VITALS: BP 135/74; PULSE 61; RESP 16; O2SAT 92; BMI 42.3
[2025-06-26] MEDS: DEXAMETHASONE 10MG/ML 1ML VIAL 10 MG (11:48)
[2025-06-26 11:49] VITALS: BP 130/85; PULSE 70; RESP 18; O2SAT 93
[2025-06-26 11:53] VITALS: BP 130/85; PULSE 69; RESP 18; O2SAT 94
[2025-06-26 11:56] VITALS: BP 151/82; PULSE 70; RESP 16; O2SAT 94
--- NOTE | 2025-06-26 11:58 | EXP.PAIN.PRO ---
Procedure Date: 06/26/25 Time: 11:45 Anesthesiologist:: Thomas Cramer CRNA Complications:: None Pre-procedure Diagnosis:: Degenerative disc lumbar spine. Lumbar radiculopathy. Post-procedure Diagnosis:: Same. Indications for Procedure:: Patient is a pleasant 70-year-old male who comes our clinic today for a lumbar epidural steroid injection. Patient describes low lumbar back pain as constant, dull, aching. Patient also reports bilateral hip and leg radicular symptoms. He reports having difficulty with ambulation due to the low back pain and bilateral hip and leg radicular symptoms. He rates his pain 7/10. Procedure Details:: Procedure: Lumbar epidural steroid injection under fluoroscopy Informed consent was obtained and the risks and benefits of the procedure were explained to the patient. The patient was taken to the procedure room and noninvasive monitors placed, including noninvasive blood pressure cuff and pulse oximeter. The back was viewed using C-arm Fluoroscopy and prepped using Chloraprep as a cleansing solution and the L4-L5 interspace was palpated. Skin and subcutaneous tissues were anesthetized using lidocaine 1.5% and a 25-gauge needle. After this, an 18-gauge Touhy epidural needle was placed into the L4-L5 interspace and advanced using fluoroscopic guidance and loss of resistance to air until the epidural space was encountered. After confirmation of needle placement in the epidural space, with dye, a solution containing normal saline, 3 mL and dexamethasone 10 mg were incrementally injected into the lumbar epidural space. The patient tolerated the procedure well with no complications. The patient was observed in the Pain Clinic and then discharged home neurologically intact. Plan and Disposition:: Patient was discharged without incident.
== END 2025-06-26 11:56 | disposition home or self-care (01) ==
PROVIDERS: PCP Family Medicine; Visit Provider Nurse Anesthetist, Certified Registered
DX: M51.16 Intervertebral disc disorders with radiculopathy, lumbar region (principal); M48.062 Spinal stenosis, lumbar region with neurogenic claudication; E78.5 Hyperlipidemia, unspecified; I10 Essential (primary) hypertension; I25.10 Atherosclerotic heart disease of native coronary artery without angina pectoris; J44.9 Chronic obstructive pulmonary disease, unspecified; Z87.891 Personal history of nicotine dependence; Z79.82 Long term (current) use of aspirin; Z79.899 Other long term (current) drug therapy; Z95.5 Presence of coronary angioplasty implant and graft
CPT/HCPCS: 62323; J1100